=== PATIENT | male | born 1960 | race Caucasian/White ===

== ENCOUNTER 2020-11-13 08:09 | Emergency (ER) | payer OTHER, MEDICARE, SELFPAY ==
--- NOTE | ~2020-11-13 | XR_ITS ---
EXAMINATION: XR FOREARM, LEFT CLINICAL INFORMATION: Crush injury COMPARISON: None TECHNIQUE: AP and lateral views of the left forearm were obtained. FINDINGS: There is no visible acute fracture, dislocation or subluxation seen. There are enthesophytes along the proximal radius and olecranon process at the elbow joint. Otherwise no gross bony abnormality. The soft tissues are normal. XR/XR forearm LT 2V IMPRESSION: No acute fracture, dislocation or soft tissue abnormality seen.
[2020-11-13 08:26] VITALS: BP 141/87; PULSE 100; RESP 16; TEMP 36.2; O2SAT 95; BMI 21.4
--- NOTE | 2020-11-13 11:17 | ED_ITS ---
HPI - Extremity Problem General Chief complaint: Extremity Injury, Upper Stated complaint: crush injury left forearm Time Seen by Provider: 11/13/20 09:37 Source: patient Mode of arrival: ambulatory History of Present Illness HPI Narrative: 60-year-old male with no significant past medical history presenting to the ED complaining of crush injury/laceration to left forearm s/p working on a vehicle yesterday. Admits arm got caught between tire and metal part of a vehicle around 4:00 p.m. yesterday. Admits tetanus is up-to-date. Denies numbness, tingling, weakness, injury to other area MD Complaint: joint swelling and joint paint Related Data Previous Rx's Medication Instructions Recorded cephalexin 500 mg PO QID 7 Days #28 cap 11/13/20 Allergies Allergy/AdvReac Type Severity Reaction Status Date / Time No Known Allergies Allergy Verified 11/13/20 08:10 Review of Systems Review of Systems: Constitutional: No Fever, No Chills Musculoskeletal: + joint pain, No Myalgias, No Joint Swelling Skin: +laceration Neuro: No Weakness, No Numbness, No Paresthesias Yes all other systems are reviewed and are negative Neurologic: Denies Sensory deficit (Neuro) [facility] Past Medical History Attestation statement: The following information was validated with the patient. Medical History (Updated 11/13/20 @ 11:20 by EDIE Shaikh) No known health problems Social History Social History Advance Directives: No Advance Directives Information Provided: Yes Physical Exam Vital Signs: Vital Signs: Last Vital Signs Temp 97.2 F 11/13/20 08:26 Pulse 100 11/13/20 08:26 Resp 16 11/13/20 08:26 BP 141/87 H 11/13/20 08:26 Pulse Ox 95 11/13/20 08:26 Body Mass Index 21.4 Const: General: cooperative, healthy appearing and no acute distress Orientation/consciousness: patient oriented x3 Limitations: no limitations HENMT: Head: Yes normal to inspection Ears: hearing grossly normal bilaterally General nose exam: Normal external nose present Face and sinus: Yes normal facial exam Eyes: General: appearance normal, both eyes and all related structures EOM: EOMs intact bilaterally Neck: Neck: Yes normal visual inspection Resp: Effort & Inspection: normal respiratory effort Cardio: Rate: regular rate GI: Inspection: Yes normal to inspection Skin: Other: +deep flap laceration noted to let forearm with irregular margins Rashes: no rashes Neuro: General: patient oriented x3 Gait exam (Neuro): Normal gait present Sensory Exam: No Sensory deficit (Neuro) Extrem: Other: FROM intact to L wrist/hand/digits. forearm supination/ pronation intact General: Yes normal to inspection Course Course Course Narrative: XR forearm LT 2V IMPRESSION: No acute fracture, dislocation or soft tissue abnormality seen. Procedures Laceration Laceration 1: Site: upper extremity Side (If applicable): left Size (cm): 6 Description: flap Depth: simple, single layer Local Anesthetic: lidocaine 1% and with epi Amount of anesthesia used (mL): 8 Pre-repair: wound explored, irrigated extensively, deep structures intact and wound margins revised Skin layer closed with: nylon Size (cm): 4-0 Number of sutures: 7 Technique: simple, interrupted MDM - Extremity (Nontraumatic) MDM Narrative Medical decision making narrative: 60-year-old male with no significant past medical history presenting to the ED complaining of crush injury/laceration to left forearm s/p working on a vehicle yesterday. on exam VSS, NAD, physical exam as above. rule out fracture/crush injury. No evidence of foreign body. Full range of motion/sensation /NV intact distally to wound. Tetanus up-to-date Plan: X-rays, repair wound Discharge Plan Discharge Clinical Impression: Laceration, Crush injury Patient Disposition: Home, Self-Care Instructions: Laceration (ED) Additional Instructions: your x-rays were unremarkable You need to return to any emergency department or urgent care in 7-10 days to have her stitches taken out Keflex as an antibiotic, take as prescribed Keep area dry and clean, do not get wet for 24 hours After 24 hours you may get wet however only pat dry, do not scrub You may apply bacitracin or Neosporin Very begins look infected, is red, there is drainage, ear fever please return to the ED immediately Prescriptions: New cephalexin 500 mg capsule 500 mg PO QID 7 Days Qty: 28 RF: 0 Referrals: Harshal Hines MD [Emergency Provider] - 1 week ( return to any emergency department or urgent care in 7-10 days to have your stitches taken out)
== END 2020-11-13 11:29 | disposition home or self-care (01) ==
PROVIDERS: Emergency Provider Emergency Medicine Emergency Medical Services; PCP Internal Medicine
DX: S57.82XA Crushing injury of left forearm, initial encounter (principal); S51.812A Laceration without foreign body of left forearm, initial encounter; W23.0XXA Caught, crushed, jammed, or pinched between moving objects, initial encounter; Y93.9 Activity, unspecified; Y92.9 Unspecified place or not applicable; Y99.9 Unspecified external cause status
CPT/HCPCS: 12002; 73090; 99283; 99284

== ENCOUNTER 2021-02-22 16:16 | Emergency (ER) | payer OTHER, MEDICARE, SELFPAY ==
[2021-02-22 16:31] VITALS: BP 131/108; PULSE 99; RESP 20; TEMP 36.6; O2SAT 95; BMI 24.1
[2021-02-22 16:52] LABS: Appearance Urine CLEAR; Color Urine YELLOW; Glucose Urine UA NEG (NEG); Leukocyte Esterase Urine NEG (NEG); Nitrite Urine NEG (NEG); Specific Gravity - Urine <= 1.005 (1.005-1.025); Urine Blood NEG (NEG); Urine Ketones NEG (NEG); Urine Protein NEG (NEG-TRACE)
[2021-02-22 17:05] LABS: Amphetamine Screen Urine Not Detected (Not Detect); Barbiturates, Urine Not Detected (Not Detect); Benzodiazepines Screen Urine Not Detected (Not Detect); Cannabinoid Screen Urine Not Detected (Not Detect); Cocaine Screen Urine Not Detected (Not Detect); Fentanyl, urine Not Detected (Not Detect); Opiate Screen Urine Not Detected (Not Detect); Phencyclidine Screen Urine Not Detected (Not Detect)
--- NOTE | 2021-02-22 19:23 | MHC.RECOVSUP ---
? Reason for consult:Support Services o?? Current location ?Waiting Room o?? Identified substance use concern ?Alcohol ? Seeking ATS (detox) ?? Support ? Intervention: o?? Community resources provided o?? Harm reduction discussion ? Plan o?? Follow up tomor o?? Patient to follow up with [facility] after discharge ? Additional information: ?Spoke with Pt. in the waiting room. Explained that I could see once he is medically clear from the doctor. Also informed the Care Team about his situation.
--- NOTE | 2021-02-22 21:23 | ED.ALCOHOL ---
HPI - Alcohol General Chief Complaint: ETOH/Substance Use Stated Complaint: Detox? Time Seen by Provider: 02/22/21 21:22 Source: patient Mode of arrival: ambulatory Limitations: no limitations History of Present Illness HPI narrative: asking for meds to hold him over until detox complaint: alcohol dependence Last drink: Hours (ago) Chronic alcohol use: Yes Previous visits for alcohol intoxication: No Recent trauma: No Associated symptoms: denies other symptoms Treatments prior to arrival: none Related Data Previous Rx's Medication Instructions Recorded cephalexin 500 mg capsule 500 mg PO QID 7 Days #28 cap 11/13/20 chlordiazepoxide HCl 25 mg capsule See Rx Instructions .ROUTE 02/22/21 .COMPLEX PRN #15 cap Allergies Allergy/AdvReac Type Severity Reaction Status Date / Time No Known Allergies Allergy Verified 11/13/20 08:10 Review of Systems Review of Systems: Constitutional : No Fever, No Chills ENT/Mouth : No sore throat, No Rhinorrhea Eyes: No Eye Pain, No Swelling, No Redness Cardiovascular : No Chest Pain, No SOB, Respiratory : No Cough, No Sputum, No Wheezing Gastrointestinal : No Nausea, No Vomiting Genitourinary : No Dysuria, No Urinary Frequency, No Hematuria, Musculoskeletal : No joint pain, No Myalgias, No Joint Swelling Skin : No Skin Lesions, No rash Neuro : No Weakness, No Numbness, No Dizziness, No Headache Psych : No Anxiety/Panic, No Depression PMFSH Past Medical History Attestation statement: The following information was validated with the patient. Medical History No known health problems Social History Social History (Updated 02/22/21 @ 21:36 by Mame Whaley DO) Alcohol intake: current Patient Tobacco Use Status: Current everyday Tobacco user Advance Directives: No Advance Directives Information Provided: Yes Physical Exam Vital Signs: Vital Signs: Last Vital Signs Temp 98 F 02/22/21 16:31 Pulse 99 02/22/21 16:31 Resp 20 02/22/21 16:31 BP 131/108 H 02/22/21 16:31 Pulse Ox 95 02/22/21 16:31 Body Mass Index 24.1 Appearance: Alert. Oriented X3. No acute distress. Eyes: Pupils equal, round and reactive to light. ENT: Pharynx normal. atraumatic Neck: Normal inspection. Neck supple. CVS: Normal heart rate and rhythm. Pulses normal. Respiratory: No respiratory distress. Breath sounds normal. Abdomen: Soft and nontender. Skin: Skin warm and dry. Normal skin color. Normal skin turgor. Extremities: No lower extremity edema. No calf ttp Neuro: Oriented X 3. No motor deficit. No sensory deficit. no tremor MDM - Alcohol MDM Narrative Medical decision making narrative: 60 yo male no medical complaints no SI just wants meds to hold him over until detox on Thursday - will give librium and instructed him to follow up, recovery coaches not available in the ED at this time Lab Data Labs: Lab Results 02/22/21 02/22/21 Range/Units 16:45 16:45 Urine Color YELLOW Urine Appearance CLEAR Urine pH 6.0 (5.0-8.0) Ur Specific [place] <= 1.005 (1.005-1.025) Urine Protein NEG (NEG-TRACE) MG/DL Urine Glucose (UA) NEG (NEG) MG/DL Urine Ketones NEG (NEG) MG/DL Urine Blood NEG (NEG) Urine Nitrite NEG (NEG) Ur Leukocyte Esterase NEG (NEG) Urine Opiates Screen Not Detected (Not Detect) Urine Fentanyl Screen Not Detected (Not Detect) Ur Barbiturates Screen Not Detected (Not Detect) Ur Phencyclidine Scrn Not Detected (Not Detect) Ur Amphetamines Screen Not Detected (Not Detect) U Benzodiazepines Scrn Not Detected (Not Detect) Urine Cocaine Screen Not Detected (Not Detect) U Marijuana (THC) Screen Not Detected (Not Detect) Discharge Plan Discharge Clinical Impression: Alcohol abuse Patient Disposition: Home, Self-Care Instructions: Abuse of Alcohol (ED) Additional Instructions: return to ED for any worsening symptoms or concerns Prescriptions: New chlordiazepoxide HCl 25 mg capsule See Rx Instructions .ROUTE .COMPLEX PRN (Reason: alcohol withdrawal) Qty: 15 RF: 0 No Action cephalexin 500 mg capsule 500 mg PO QID 7 Days Qty: 28 RF: 0
[2021-02-22] MEDS: chlordiazePOXIDE HCl 25 MG CAPSULE PO (21:55)
[2021-02-22 21:56] VITALS: BP 172/111; PULSE 88; RESP 16; TEMP 36.4; O2SAT 94
--- NOTE | 2021-02-22 22:00 | PC.NURSE ---
BP 172/111 MD notified per provider pt ok to be d/c with these vital signs
== END 2021-02-22 22:13 | disposition home or self-care (01) ==
PROVIDERS: Emergency Provider Emergency Medicine; PCP Internal Medicine
DX: F10.10 Alcohol abuse, uncomplicated (principal)
CPT/HCPCS: 80307; 81003; 99284

== ENCOUNTER 2022-04-21 09:19 | Outpatient (REF) | payer MEDICARE, SELFPAY ==
[2022-04-21 09:32] LABS: MANUAL DIFF FLAG NO
[2022-04-21 09:54] LABS: Basophils Percent Auto 0.3 % (0-2); Eosinophils Absolute Auto 0.1 X10*3/uL (0.0-0.4); Eosinophils Percent Auto 1.6 % (0-4); Hematocrit 44.7 % (42.0-52.0); Hemoglobin 15.2 g/dl (14.0-18.0); Imm Gran Abs Auto 0.03 X10*3/uL (0.00-0.03); Imm Gran Pct Auto 0.4 % (0.0-0.4); Lymphocytes Absolute Auto 3.2 X10*3/uL (1.2-4.9); Lymphocytes Percent Auto 42.6 % (20-40); Mean Corpuscular Hemoglobin 29.7 pg (27.0-33.0); Mean Corpuscular Volume 87.3 fL (80.0-98.0); Monocytes Absolute Auto 0.6 X10*3/uL (0.1-1.2); Monocytes Percent Auto 7.3 % (2-11); Neutrophils Absolute Auto 3.6 x10*3/uL (2.0-8.3); Neutrophils Percent Auto 47.8 % (45-73); Platelet Count 320 X10*3/uL (160-400); Red Blood Count 5.12 X10*6/uL (4.60-5.80); Red Cell Distribution Width 13.1 % (11.0-16.0); White Blood Count 7.6 X10*3/uL (4.8-10.8)
[2022-04-21 11:36] LABS: Alanine Aminotransferase 23 U/L (0-40); Albumin Level 4.2 g/dL (3.5-5.0); Alkaline Phosphatase 90 U/L (39-117); Anion Gap 10 (12-20); Aspartate Amino Transferase 28 U/L (5-37); Bilirubin Total 0.6 mg/dL (0.0-1.0); Blood Urea Nitrogen 11 mg/dL (9-16); Carbon Dioxide 29 mmol/L (22-29); Chloride 103 mmol/L (96-108); Cholesterol 187 mg/dL; Estimated Glomerular Filt Rate > 60; Ferritin 382 ng/mL (20-250); Glucose Random 125 mg/dL (60-115); HDL Cholesterol 36 mg/dL; LDL Cholesterol Calculated 138 mg/dl; Potassium 4.4 mmol/L (3.3-5.1); Prostate Specific Antigen 0.32 ng/mL (<0.05-4.0); Sodium 138 mmol/L (135-145); Total Protein 7.6 g/dL (6.5-8.0); Triglycerides 68 mg/dL
== END 2022-04-21 09:20 | disposition home or self-care (01) ==
LOC: HO.LAB 09:19
PROVIDERS: PCP Internal Medicine; Visit Provider Internal Medicine
DX: Z00.00 Encounter for general adult medical examination without abnormal findings (principal); Z12.5 Encounter for screening for malignant neoplasm of prostate; E83.110 Hereditary hemochromatosis; G62.1 Alcoholic polyneuropathy; Z72.0 Tobacco use; Z86.010 Personal history of colon polyps
CPT/HCPCS: 36415; 80053; 80061; 82728; 84153; 85025

== ENCOUNTER 2022-10-17 06:19 | Outpatient (REF) | payer MEDICARE, SELFPAY ==
[2022-10-17 12:12] LABS: Estimated Average Glucose 103 mg/dL; Hemoglobin A1c % 5.2 %
[2022-10-17 12:55] LABS: Alanine Aminotransferase 29 U/L (0-40); Albumin Level 4.1 g/dL (3.5-5.0); Alkaline Phosphatase 92 U/L (39-117); Anion Gap 12 (12-20); Aspartate Amino Transferase 42 U/L (5-37); Bilirubin Total 0.7 mg/dL (0.0-1.0); Blood Urea Nitrogen 14 mg/dL (9-16); Calcium 9.1 mg/dL (8.4-10.2); Carbon Dioxide 25 mmol/L (22-29); Chloride 103 mmol/L (96-108); Estimated Glomerular Filt Rate > 60; Glucose Random 123 mg/dL (60-115); Potassium 4.2 mmol/L (3.3-5.1); Sodium 136 mmol/L (135-145); Thyroid Stimulating Hormone 3.19 uIU/mL (0.32-4.0); Total Protein 7.6 g/dL (6.5-8.0)
== END 2022-10-17 06:20 | disposition home or self-care (01) ==
LOC: HO.HMGCLDS 06:19
PROVIDERS: PCP Internal Medicine; Visit Provider Internal Medicine
DX: J44.9 Chronic obstructive pulmonary disease, unspecified (principal); F10.11 Alcohol abuse, in remission; R63.4 Abnormal weight loss; R74.01 Elevation of levels of liver transaminase levels; Z72.0 Tobacco use; R73.01 Impaired fasting glucose
CPT/HCPCS: 36415; 80053; 81256; 83036; 84443

== ENCOUNTER 2022-11-14 13:17 | Outpatient (REF) | payer MEDICARE, SELFPAY ==
--- NOTE | ~2022-11-14 | CT_ITS ---
EXAMINATION: LUNG CANCER SCREENING CT CHEST WITHOUT CONTRAST CLINICAL INFORMATION: Current smoker with 52 pack year history. COMPARISON: None TECHNIQUE: Multidetector volumetric CT imaging of the chest was obtained noncontrast using low dose screening CT technique. Axial thin section 0.625 mm reformations in soft tissue and lung windows were obtained. Sagittal and coronal reformations were obtained. Axial MIP images were also created and reviewed. This CT examination was performed using dose optimization techniques as appropriate, variously including the following: *Automated exposure control *Adjustment of mA and/or kV according to patient size (this includes techniques or standardized protocols for targeted exams where dose is matched to indication/reason for exam; i.e. extremities or head) *Use of iterative reconstruction technique TOTAL EXAM DLP: 49 mGy-cm FINDINGS: PULMONARY NODULES (see roque images): No suspicious pulmonary nodules. Punctate nodule, left lower lobe. LUNGS / PLEURA: No significant emphysema. Diffuse moderate bronchial wall thickening without bronchiectasis. Trace secretions in the distal right mainstem bronchus. No pleural effusion or pneumothorax. MEDIASTINUM / BETTY: Heart normal in size without pericardial effusion. Great vessels normal caliber. No lymphadenopathy. Coronary calcifications present. Imaged thyroid gland unremarkable. CHEST WALL / AXILLA: Unremarkable. UPPER ABDOMEN: Smooth low-density thickening of the left adrenal gland relates to hyperplasia. No follow-up imaging recommended. OSSEOUS STRUCTURES: No acute or suspicious osseous abnormalities. CT/CT lung screening IMPRESSION: * No evidence of pulmonary malignancy. * Diffuse moderate bronchial wall thickening likely relates to chronic bronchitis in this active smoker. ASSESSMENT: Lung RADS category: 2. Benign appearance or behavior. Nodules with a very low likelihood of becoming a clinically active cancer due to size or lack of growth. Continue annual screening with low-dose CT in 12 months. Probability of malignancy less than 1%. RECOMMENDATION: Follow up low dose CT chest in 1 year.
== END 2022-11-14 13:18 | disposition home or self-care (01) ==
LOC: HO.CT 13:17
PROVIDERS: PCP Internal Medicine; Visit Provider Physician Assistant Medical
DX: Z12.2 Encounter for screening for malignant neoplasm of respiratory organs (principal); F17.210 Nicotine dependence, cigarettes, uncomplicated
CPT/HCPCS: 71271; G0296

== ENCOUNTER → 2022-12-31 08:46 | Outpatient (REF) | payer MEDICARE, SELFPAY ==
--- NOTE | 2022-12-31 08:51 | CA_ITS ---
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 The visually estimated ejection fraction is between 60-65%. Spectral Doppler is indicative of a normal filling pattern. Right Ventricle Normal right ventricular cavity size and systolic function. Atria Both atria are normal in size. There is no evidence of interatrial shunt. Aortic Valve The aortic valve structure and function is likely normal. There is no aortic valve stenosis. There is no aortic valve regurgitation. Mitral Valve Normal mitral valve structure and function. There is trace mitral valve regurgitation. There is no mitral valve stenosis. Pulmonic Valve The pulmonic valve is likely normal. Tricuspid Valve Normal tricuspid valve structure. There is trace tricuspid valve regurgitation. The right ventricular systolic pressure is normal. The right ventricular systolic pressure is 18 mmHg. Normal right atrial pressure. There is no evidence of pulmonary hypertension. Great Vessels All visible segments of the aorta are normal in size. The pulmonary artery was not well visualized. There is no dilatation of the ascending aorta measuring 3.20 cm. Venous The inferior vena cava is normal in size and collapses greater than 50% with inspiration. Pericardium/Pleural There is no evidence of pericardial effusion. Prior Study Comparison No prior study available for comparison. Measurements 2D Linear Measurements IVSd: 1.17 0.6-0.9/0.6-1.0 cm LVIDd: 3.30 3.9-5.3/4.2-5.9 cm LVIDd Index: 1.85 2.4-3.2/2.2-3.1 cm/m2 LVIDs: 2.24 2.0-3.6 cm LVPWd: 0.96 0.7-1.1 cm Ao Root: 3.50 2.1-3.5 cm LA Diam: 2.70 2.7-3.8/3.0-4.0 cm LAIDs Index: 1.52 1.5-2.3 cm/m2 LV Mass: 128.86 67-162/88-224 g LV Mass Index: 72.39 43-95/49-115 g/m2 LVOT Diam: 2.20 3.0+(-)1.3 cm Mitral Valve MV Pk E: 0.51 MV PK A: 0.62 MV Decel Time: 244.00 E/A: 0.80 E'Lateral: 9.25 E'Medial: 6.96 E/E' Med: 7.30 E/E' Lat: 5.50 PHT: 71.00 MVA PHT: 3.10 Decel [place]: 2.08 Aortic Valve AoV Pk Deonte: 1.24 AoV Mn Deonte: 0.81 AoV VTI: 0.32 AoV Pk Grad: 6.00 Aov Mn Grad: 3.00 ALYSSA Cont.VTI: 3.20 LVOT LVOT Pk Deonte: 1.09 LVOT Mn Deonte: 0.66 LVOT VTI: 0.27 LVOT Pk Grad: 5.00 LVOT Mn Grad: 2.00 LVOT Diam: 2.20 LVOT Area: 3.80 Diastolic Function MV Pk E: 0.51 MV Pk A: 0.62 E/A: 0.80 E'Medial: 6.96 E/E' Med: 7.30 E' Laterial: 9.25 E/E' Lat: 5.50 Right Ventricle TAPSE (mm): 32.00 Tricuspid Valve TR Pk [place]onte: 1.95 TR Pk Grad: 15.00 RA Press: 3.00 RVSP: 18.00 Great Vessels Aorta Ao Root-2D: 3.50 2.0-3.7 cm Ao Asc: 3.20 2.1-3.4 cm Pulmonary Valve PV Pk Deonte: 0.92 Peak PV Grad: 3.00 Updated in Other Vendor System with Status of Final Hans Early MD electronically signed on 01/01/2023 11:59:15 AM with status of Final
== END ==
LOC: HO.CARD 08:46
PROVIDERS: PCP Internal Medicine; Visit Provider Internal Medicine
DX: E83.110 Hereditary hemochromatosis (principal)
CPT/HCPCS: 93306

== ENCOUNTER → 2022-12-31 08:51 | Outpatient (BNV) | payer MEDICARE, SELFPAY | PROVIDERS: PCP Internal Medicine; Visit Provider Internal Medicine Cardiovascular Disease | DX: E83.110 Hereditary hemochromatosis (principal) | CPT/HCPCS: 93306 ==

== ENCOUNTER 2023-01-15 09:24 | Emergency (ER) | payer MEDICARE, SELFPAY ==
--- NOTE | ~2023-01-15 | CT_ITS ---
EXAMINATION: CT HEAD WITHOUT CONTRAST CLINICAL INFORMATION: Syncope, possible head injury. COMPARISON: Head CT scan dated 12/31/2017. TECHNIQUE: Contiguous axial imaging was performed from the skull base to vertex without intravenous administration of contrast. Coronal and sagittal reformatted images were obtained. This CT examination was performed using dose optimization techniques as appropriate, variously including the following: *Automated exposure control *Adjustment of mA and/or kV according to patient size (this includes techniques or standardized protocols for targeted exams where dose is matched to indication/reason for exam; i.e. extremities or head) *Use of iterative reconstruction technique DLP: 611 mGy-cm FINDINGS: There is mild widening of the cortical sulci and associated ventriculomegaly. The lateral ventricles are symmetrical. The third and fourth ventricles are in their normal midline position. The basilar and prepontine cisterns are unremarkable. There is no acute intra or extracerebral abnormality. There is no mass effect or midline shift. Sections through the bony calvarium are unremarkable. The orbits are intact. The paranasal sinuses show mild mucosal thickening in the ethmoid sinuses bilaterally. The mastoid air cells are clear. Hypoaeration of the left mastoid process is noted. CT/CT head/brain wo IV con IMPRESSION: No acute intracranial pathology.
[2023-01-15 09:30] VITALS: BP 156/96; PULSE 73; RESP 16; TEMP 37; O2SAT 92
[2023-01-15 09:34] VITALS: BP 146/96; O2SAT 96; BMI 21.9
[2023-01-15 09:38] VITALS: O2SAT 99
--- NOTE | 2023-01-15 09:45 | PC.NURSE ---
pt a&ox3, vss, nsr on the court recording monitor. pt biba d/t syncopal episode after walking dog. pt states that he had LOC after changing positions and then his vision became blurry. pt denies hx of syncopal episodes aside from seizure he had when he was 12 years old. pt states that he cracked his skull open on the playground at school and had a seizure post head strike. pt denies any other occurrences throughout life. pt verbalizing SOB abhinav but is maintaining patent airway, able to speak in full, clear sentences. no WOB noted. c-collar in place. 20gIV placed by EMS. call [place] placed within reach.
--- NOTE | 2023-01-15 09:56 | ED.SYNCOPE ---
HPI - Syncope General Chief Complaint: Syncope Stated Complaint: SYNCOPAL EPISODE +CCOLLAR PER EMS Time Seen by Provider: 01/15/23 09:45 Source: patient and EMS Mode of arrival: EMS Limitations: no limitations History of Present Illness HPI narrative: 8-year-old male with history of alcohol abuse presents with a syncopal event. Patient when out to walk the dog or take out the trash when he got back into the house he had a syncopal event. Had no prodrome such as chest pain, palpitations or lightheadedness. 1 minute he was walking the next minute he knew was on the ground. He is unclear whether he did hit his head. His symptoms are described as severe. He does not have a history of syncope. Denies any history of sudden cardiac in his family. He has no active chest pain, palpitations. Patient does have a history of anxiety and he does feel somewhat anxious. Patient drinks about a pt of vodka daily. His last drink was yesterday morning. He denies feeling withdrawal symptoms at this time. Patient denies any drug abuse. Related Data Previous Rx's Medication Instructions Recorded cephalexin 500 mg capsule 500 mg PO QID 7 days #28 caps 11/13/20 chlordiazepoxide HCl 25 mg capsule See Rx Instructions .Route 02/22/21 .COMPLEX PRN alcohol withdrawal #15 caps Allergies Allergy/AdvReac Type Severity Reaction Status Date / Time No Known Allergies Allergy Verified 01/15/23 09:33 Review of Systems Review of Systems: CONSTITUTIONAL: Denies weight loss, fever and chills. HEENT: Denies changes in vision and hearing. RESPIRATORY: Denies SOB and cough. CV: Denies palpitations no CP. GI: Denies abdominal pain, nausea, vomiting and diarrhea. : Denies dysuria and urinary frequency. MSK: Denies myalgia and joint pain. SKIN: Denies rash and pruritus. NEUROLOGICAL: Denies headache + syncope. PSYCHIATRIC: Denies recent changes in mood. Denies anxiety and depression. All other ROS are negative unless in HPI PMFSH Past Medical History Medical History Nicotine dependence, cigarettes, uncomplicated Surgical History History of cervical spinal surgery History of left knee surgery History of lumbar surgery History of vasectomy Social History Social History Alcohol intake: current Alcohol intake frequency: 3 or more drinks per day Alcohol type: hard liquor Patient Tobacco Use Status: Current everyday Tobacco user Tobacco use type: Cigarette Years Smoked: (current smoker - onset 20yo, 1/2ppd x 42yrs, 20pyh) Smoked in Last 30 Days: Yes Use of substances other than those prescribed or required for medical reasons: No Advance Directives: No Physical Exam Vital Signs: Vital Signs: Last Vital Signs Temp 98.6 F 01/15/23 09:30 Pulse 89 01/15/23 11:08 Resp 16 01/15/23 11:08 BP 142/80 H 01/15/23 11:08 Pulse Ox 93 01/15/23 11:08 O2 Del Method Room Air 01/15/23 11:08 BMI result Body Mass Index 21.9 GEN: Well developed, no acute distress, alert, oriented HEENT: Normocephalic, atraumatic, normal external ears, nose appears normal, no oropharyngeal edema or exudates Eyes: Normal to appearance Neck: Supple, no lymphadenopathy Respiratory: Talks in complete sentences, no respiratory distress, clear to auscultation bilaterally Cardiovascular: Regular rate and rhythm, no murmurs rubs or gallops Abdomen: Soft, nontender, nondistended, no guarding, no rebound Back: No CVA tenderness Extremities: No clubbing cyanosis or edema Neurologic: No focal neurologic deficits, cranial nerves 2-12 intact, strength is 5/5 bilaterally Skin: No rash Psych: Anxious and tremulous appearing Course Course Course Narrative: the workup is complete. Been monitored for quite some time. On telemetry, he had some runs of PVCs numbering 3 or 4 neuro but mostly sinus rhythm. EKG is not ischemic. Cardiac enzymes x2 are negative. CT [place] syncope score does not shown indication for admission. This could be done as an outpatient. Will refer to Cardiology. Reevaluation(s) Reevaluation #1: [place] Syncope Risk Score from [employer] on 01/15/2023 All calculations should be rechecked by clinician prior to use RESULT SUMMARY: -2 points [place] Syncope Risk Score Very low risk 0.7% risk of 30-day serious adverse event (, arrhythmia, PR ? full list in Evidence) INPUTS: Predisposition to vasovagal symptoms ?> 0 = No Heart disease history ?> 0 = No sBP 180 mmHg ?> 0 = No Elevated troponin ?> 0 = No Abnormal QRS axis ?> 0 = No QRS duration >130 ms ?> 0 = No Corrected QT interval >480 ms ?> 0 = No ED diagnosis ?> -2 = Vasovagal syncope Time: 13:03 Medications Administered Discontinued Medications Generic Name Dose Route Start Last Admin Trade Name Alvaro PRN Reason Stop Dose Admin Albuterol Sulfate 2.5 mg 01/15/23 09:57 01/15/23 10:13 Albuterol Sulfate (0.083%) 2.5 Mg/3 Ml Vial.Neb INHALE 01/15/23 09:58 2.5 mg ONCE ONE Administration Lorazepam 2 mg 01/15/23 09:57 01/15/23 10:13 Lorazepam 1 Mg Tablet PO 01/15/23 09:58 2 mg ONCE ONE Administration Nicotine 21 mg 01/15/23 09:57 01/15/23 10:14 Nicotine 21 Mg Patch.Td24 TRANSDERMA 01/15/23 09:58 21 mg ONCE ONE Administration Medical Decision Making Medical Decision Making MDM Narrative: 62-year-old male presents with syncope. Examination was benign. EKG will be performed to rule out cardiac dysrhythmia. Other differential diagnosis includes anemia, electrolyte abnormality, intoxication, withdrawal, drug abuse, PR, vasovagal, orthostatic. Will check routine laboratory analysis, vital signs, re-evaluate. Will treat symptomatically for possible draws patient appears tremulous. He will get Ativan 2 mg p.o.. Will provide with nicotine replacement. Differential Diagnosis Differential Diagnoses: The differential diagnosis associated with the presentation includes ( See above) Admission/Observation Consideration of admission/observation: Escalation of care including admission/observation considered Lab Data [facility] Lab Attestation statement: I reviewed the patient's lab results. 01/15/23 10:25 01/15/23 10:25 Labs: Lab Results 01/15/23 01/15/23 01/15/23 Range/Units 10:25 10:25 10:25 WBC 6.6 (4.8-10.8) X10*3/uL RBC 4.64 (4.60-5.80) X10*6/uL Hgb 15.2 (14.0-18.0) g/dl Hct 43.3 (42.0-52.0) % MCV 93.3 (80.0-98.0) fL MCH 32.8 (27.0-33.0) pg MCHC 35.1 (31.0-36.0) g/dl RDW 12.7 (11.0-16.0) % Plt Count 212 D (160-400) X10*3/uL MPV 9.0 L (9.4-12.4) fL Immature Gran % (Auto) 0.3 (0.0-0.4) % Neut % (Auto) 73.5 H (45-73) % Lymph % (Auto) 16.3 L (20-40) % Randall % (Auto) 8.8 (2-11) % Eos % (Auto) 0.6 (0-4) % Baso % (Auto) 0.5 (0-2) % Lymph # (Auto) 1.1 L (1.2-4.9) X10*3/uL Randall # (Auto) 0.6 (0.1-1.2) X10*3/uL Eos # (Auto) 0.0 (0.0-0.4) X10*3/uL Baso # (Auto) 0.0 (0.0-0.2) X10*3/uL Abs Immat Gran (auto) 0.02 (0.00-0.03) X10*3/uL Absolute Neuts (auto) 4.8 (2.0-8.3) x10*3/uL Absolute Nucleated RBC 0.000 (0.0-0.012) X10*3/uL Nucleated RBC % (auto) 0.0 (0.0-0.2) /100WBC Sodium 139 (135-145) mmol/L Potassium 4.2 (3.3-5.1) mmol/L Chloride 101 (96-108) mmol/L Carbon Dioxide 29 (22-29) mmol/L Anion Gap 13 (12-20) BUN 11 (9-16) mg/dL Creatinine 0.74 (0.5-1.4) mg/dL Estim Creat Clear Calc 97.8 Estimated GFR > 60 Random Glucose 101 (60-115) mg/dL Calcium 9.3 (8.4-10.2) mg/dL Total Bilirubin 0.8 (0.0-1.0) mg/dL AST 140 H (5-37) U/L ALT 74 H (0-40) U/L Alkaline Phosphatase 91 (39-117) U/L Troponin I High Sens < 2.7 (<3.5-35.0) ng/L Total Protein 7.6 (6.5-8.0) g/dL Albumin 4.0 (3.5-5.0) g/dL Urine Color Urine Appearance Urine pH (5.0-9.0) Ur Specific [place] (1.005-1.025) Urine Protein (Neg-Trace) mg/dL Urine Glucose (UA) (Negative) mg/dL Urine Ketones (Negative) mg/dL Urine Blood (Negative) Urine Nitrite (Negative) Ur Leukocyte Esterase (Negative) Urine RBC (0-2) /HPF Urine WBC (0-5) /HPF Ur Squamous Epith Cells (0-2) /HPF Urine Bacteria (None Seen) Hyaline Casts (0-2) /LPF Urine Opiates Screen (Not Detect) Urine Fentanyl Screen (Not Detect) Ur Barbiturates Screen (Not Detect) Ur Phencyclidine Scrn (Not Detect) Ur Amphetamines Screen (Not Detect) U Benzodiazepines Scrn (Not Detect) Urine Cocaine Screen (Not Detect) U Marijuana (THC) Screen (Not Detect) Ethyl Alcohol 11 mg/dL 01/15/23 01/15/23 01/15/23 Range/Units 10:47 10:47 11:47 WBC (4.8-10.8) X10*3/uL RBC (4.60-5.80) X10*6/uL Hgb (14.0-18.0) g/dl Hct (42.0-52.0) % MCV (80.0-98.0) fL MCH (27.0-33.0) pg MCHC (31.0-36.0) g/dl RDW (11.0-16.0) % Plt Count (160-400) X10*3/uL MPV (9.4-12.4) fL Immature Gran % (Auto) (0.0-0.4) % Neut % (Auto) (45-73) % Lymph % (Auto) (20-40) % Randall % (Auto) (2-11) % Eos % (Auto) (0-4) % Baso % (Auto) (0-2) % Lymph # (Auto) (1.2-4.9) X10*3/uL Randall # (Auto) (0.1-1.2) X10*3/uL Eos # (Auto) (0.0-0.4) X10*3/uL Baso # (Auto) (0.0-0.2) X10*3/uL Abs Immat Gran (auto) (0.00-0.03) X10*3/uL Absolute Neuts (auto) (2.0-8.3) x10*3/uL Absolute Nucleated RBC (0.0-0.012) X10*3/uL Nucleated RBC % (auto) (0.0-0.2) /100WBC Sodium (135-145) mmol/L Potassium (3.3-5.1) mmol/L Chloride (96-108) mmol/L Carbon Dioxide (22-29) mmol/L Anion Gap (12-20) BUN (9-16) mg/dL Creatinine (0.5-1.4) mg/dL Estim Creat Clear Calc Estimated GFR Random Glucose (60-115) mg/dL Calcium (8.4-10.2) mg/dL Total Bilirubin (0.0-1.0) mg/dL AST (5-37) U/L ALT (0-40) U/L Alkaline Phosphatase (39-117) U/L Troponin I High Sens < 2.7 (<3.5-35.0) ng/L Total Protein (6.5-8.0) g/dL Albumin (3.5-5.0) g/dL Urine Color Yellow Urine Appearance Hazy Urine pH 6.0 (5.0-9.0) Ur Specific [place] 1.025 (1.005-1.025) Urine Protein Trace (Neg-Trace) mg/dL Urine Glucose (UA) Negative (Negative) mg/dL Urine Ketones Negative (Negative) mg/dL Urine Blood Trace (Negative) Urine Nitrite Negative (Negative) Ur Leukocyte Esterase Negative (Negative) Urine RBC 0-2 (0-2) /HPF Urine WBC 0-5 (0-5) /HPF Ur Squamous Epith Cells 0-2 (0-2) /HPF Urine Bacteria None Seen (None Seen) Hyaline Casts 0-2 (0-2) /LPF Urine Opiates Screen Not Detected (Not Detect) Urine Fentanyl Screen Not Detected (Not Detect) Ur Barbiturates Screen Not Detected (Not Detect) Ur Phencyclidine Scrn Not Detected (Not Detect) Ur Amphetamines Screen Not Detected (Not Detect) U Benzodiazepines Scrn Not Detected (Not Detect) Urine Cocaine Screen Not Detected (Not Detect) U Marijuana (THC) Screen Not Detected (Not Detect) Ethyl Alcohol mg/dL Independent Interpretation I performed an independent interpretation of an: EKG ( normal sinus rhythm heart rate 62, no acute ST elevations depressions, Q-wave noted in lead 3), Rhythm Strip (had a run of 3 pvcs but otherwise sinus ) and CT Scan (head NAD) Radiology Impression Discussion of test interpretation with radiology: I have reviewed the radiologist's reading. Radiologist Impression: CT/CT head/brain wo IV con IMPRESSION: No acute intracranial pathology. Dictated By: Adam Macias MD Signed By: <Electronically signed by Adam Macias MD in OV> 01/15/23 1245 Independent Historian Clinical information obtained from an independent historian. History obtained from or confirmed by: EMS Prescription Management I considered prescription management with: Pain Medication Chronic Conditions Patient?s care impacted by: Other ( anxiety, alcohol abuse) Discharge Plan Discharge Clinical Impression: Syncope, History of ETOH abuse, Nicotine dependence, cigarettes, uncomplicated Patient Disposition: Home, Self-Care Instructions: Abuse of Alcohol (ED), Syncope (ED) Prescriptions: No Action cephalexin 500 mg capsule 500 mg PO QID 7 Days Qty: 28 0RF chlordiazepoxide HCl 25 mg capsule See Rx Instructions .ROUTE .COMPLEX PRN (Reason: alcohol withdrawal) Qty: 15 0RF Rx Instructions: Dose: 25mg Day 1: 50 mg every 6 hours as needed for symptom control of alcohol withdrawal; days 2 to 5: 25 mg every 6 hours as needed for alcohol withdrawal Referrals: Sugey Ramos MD [Primary Care Provider] - Reji Chu MD [Physician] - 5 days
--- NOTE | 2023-01-15 09:57 | ECG_ITS ---
Test Reason : syncope Blood Pressure : / mmHG Vent. Rate : 062 BPM Atrial Rate : 062 BPM P-R Int : 162 ms QRS Dur : 086 ms QT Int : 404 ms P-R-T Axes : 074 -05 063 degrees QTc Int : 410 ms Normal sinus rhythm Cannot rule out Inferior infarct , age undetermined Abnormal ECG When compared with ECG of 04-APR-2017 18:58, No significant change was found Referred By: Tevin Mann Electronically Signed By:JOSÉ MCCRARY
[2023-01-15] MEDS: LORazepam 1 MG TABLET 2 MG PO (10:13)
[2023-01-15] MEDS: Albuterol Sulfate (0.083%) 2.5 MG/3 ML VIAL.NEB INHALE (10:13)
[2023-01-15] MEDS: Nicotine 21 MG PATCH.TD24 TRANSDERMA (10:14)
--- NOTE | 2023-01-15 10:16 | PC.NURSE ---
medication administered per provider order. RT called/RT bedside giving pt breathing treatment. lung sounds clear throughout prior to treatment. CT now bedside but states they will come back when pt completes breathing treatment. call angeles placed within reach.
[2023-01-15 10:28] LABS: MANUAL DIFF FLAG NO
[2023-01-15 10:29] LABS: Basophils Percent Auto 0.5 % (0-2); Eosinophils Percent Auto 0.6 % (0-4); Hematocrit 43.3 % (42.0-52.0); Hemoglobin 15.2 g/dl (14.0-18.0); Imm Gran Abs Auto 0.02 X10*3/uL (0.00-0.03); Imm Gran Pct Auto 0.3 % (0.0-0.4); Lymphocytes Absolute Auto 1.1 X10*3/uL (1.2-4.9); Lymphocytes Percent Auto 16.3 % (20-40); Mean Corpuscular HGB Conc 35.1 g/dl (31.0-36.0); Mean Corpuscular Hemoglobin 32.8 pg (27.0-33.0); Mean Corpuscular Volume 93.3 fL (80.0-98.0); Monocytes Absolute Auto 0.6 X10*3/uL (0.1-1.2); Monocytes Percent Auto 8.8 % (2-11); Neutrophils Absolute Auto 4.8 x10*3/uL (2.0-8.3); Neutrophils Percent Auto 73.5 % (45-73); Platelet Count 212 X10*3/uL (160-400); Red Blood Count 4.64 X10*6/uL (4.60-5.80); Red Cell Distribution Width 12.7 % (11.0-16.0); White Blood Count 6.6 X10*3/uL (4.8-10.8)
[2023-01-15 10:43] LABS: Alanine Aminotransferase 74 U/L (0-40); Alkaline Phosphatase 91 U/L (39-117); Anion Gap 13 (12-20); Aspartate Amino Transferase 140 U/L (5-37); Bilirubin Total 0.8 mg/dL (0.0-1.0); Blood Urea Nitrogen 11 mg/dL (9-16); Calcium 9.3 mg/dL (8.4-10.2); Carbon Dioxide 29 mmol/L (22-29); Chloride 101 mmol/L (96-108); Creatinine Clr Calc Pharmacy 97.8; Estimated Glomerular Filt Rate > 60; Ethanol 11 mg/dL; Glucose Random 101 mg/dL (60-115); Potassium 4.2 mmol/L (3.3-5.1); Sodium 139 mmol/L (135-145); Total Protein 7.6 g/dL (6.5-8.0)
[2023-01-15 10:48] LABS: Troponin-I High Sensitivity < 2.7 ng/L (<3.5-35.0)
[2023-01-15 11:00] LABS: Appearance Urine Hazy; Color Urine Yellow; Glucose Urine UA Negative (Negative); Leukocyte Esterase Urine Negative (Negative); Nitrite Urine Negative (Negative); Specific Gravity - Urine 1.025 (1.005-1.025); UMIC TRIGGER UACC YES; Urine Blood Trace (Negative); Urine Ketones Negative (Negative); Urine Protein Trace mg/dL (Neg-Trace)
[2023-01-15 11:08] VITALS: BP 142/80; PULSE 89; RESP 16; O2SAT 93
--- NOTE | 2023-01-15 11:09 | PC.NURSE ---
pt a&ox3, vss, nsr on the mapping specialist. pt verbalizing no pain abhinav. resting comfortably in no apparent distress. lung sounds clear throughout post breathing treatment. call angeles placed within reach.
[2023-01-15 11:11] LABS: Amphetamine Screen Urine Not Detected (Not Detect); Barbiturates, Urine Not Detected (Not Detect); Benzodiazepines Screen Urine Not Detected (Not Detect); Cannabinoid Screen Urine Not Detected (Not Detect); Cocaine Screen Urine Not Detected (Not Detect); Fentanyl, urine Not Detected (Not Detect); Opiate Screen Urine Not Detected (Not Detect); Phencyclidine Screen Urine Not Detected (Not Detect)
[2023-01-15 11:13] LABS: Bacteria Urine None Seen (None Seen); Hyaline Casts Urine 0-2 /LPF (0-2); RBC Urine 0-2 /HPF (0-2); Squamous Epithelial Cell Urine 0-2 /HPF (0-2); WBC Urine 0-5 /HPF (0-5)
[2023-01-15 12:18] LABS: Troponin-I High Sensitivity < 2.7 ng/L (<3.5-35.0)
[2023-01-15 13:09] VITALS: BP 159/97; PULSE 89; RESP 16; O2SAT 93
--- NOTE | 2023-01-15 13:10 | PC.NURSE ---
pt a&ox3, vss, nsr on the compliance monitor. pt verbalizing that generalized weakness has improved since he was biba. pt also states that he no longer feels SOB. lung sounds clear throughout. pt able to speak in full, clear sentences w/o difficulty. resting comfortably while watching tv. call angeles placed within reach.
== END 2023-01-15 13:25 | disposition home or self-care (01) ==
PROVIDERS: Emergency Provider Emergency Medicine; PCP Internal Medicine
DX: R55 Syncope and collapse (principal); F10.10 Alcohol abuse, uncomplicated; Y90.0 Blood alcohol level of less than 20 mg/100 ml; F17.210 Nicotine dependence, cigarettes, uncomplicated; F41.9 Anxiety disorder, unspecified; Z79.899 Other long term (current) drug therapy
CPT/HCPCS: 36415; 70450; 80053; 80307; 81001; 84484; 85025; 93005; 99284; 99285

== ENCOUNTER 2023-04-10 08:54 | Outpatient (REF) | payer MEDICARE, SELFPAY ==
--- NOTE | ~2023-04-10 | US_ITS ---
EXAMINATION: US ABDOMEN COMPLETE CLINICAL INFORMATION: Elevated LFTs. COMPARISON: None available. TECHNIQUE: Real-time imaging of the abdominal viscera. FINDINGS: PANCREAS: Normal. ABDOMINAL AORTA: Atherosclerotic changes are seen in the abdominal aorta with plaque without evidence of aneurysm. INFERIOR VENA CAVA: Visualized portions are normal. LIVER: The liver is normal in size. The liver contour is normal. There is diffuse increased liver parenchymal echogenicity, consistent with hepatic steatosis. No focal hepatic lesion. There is no intrahepatic biliary duct dilatation seen. GALLBLADDER: Normal. The gallbladder is physiologically distended without evidence of stones, sludge, polyps, wall thickening or pericholecystic fluid. COMMON BILE DUCT: Normal in caliber measuring 0.5 cm in diameter. RIGHT KIDNEY: Normal. No hydronephrosis. No renal calculi or focal parenchymal lesions. The kidney measures 10.0 cm in maximum dimension. LEFT KIDNEY: Normal. No hydronephrosis. No renal calculi or focal parenchymal lesions. The kidney measures 10.8 cm in maximum dimension. SPLEEN: Normal. The spleen measures 7.6 cm in maximum dimension. FREE FLUID: None. US/US abdomen complete IMPRESSION: Hepatic steatosis.
== END 2023-04-10 08:55 | disposition home or self-care (01) ==
LOC: HO.US 08:54
PROVIDERS: PCP Internal Medicine; Visit Provider Internal Medicine
DX: R94.5 Abnormal results of liver function studies (principal)
CPT/HCPCS: 76700

== ENCOUNTER 2023-10-27 08:23 | Outpatient (REF) | payer MEDICARE, SELFPAY ==
[2023-10-27 10:31] LABS: MANUAL DIFF FLAG NO
[2023-10-27 10:50] LABS: Basophils Percent Auto 0.5 % (0-2); Eosinophils Absolute Auto 0.2 X10*3/uL (0.0-0.4); Eosinophils Percent Auto 2.2 % (0-4); Hemoglobin 15.8 g/dl (14.0-18.0); Imm Gran Abs Auto 0.03 X10*3/uL (0.00-0.03); Imm Gran Pct Auto 0.4 % (0.0-0.4); Lymphocytes Absolute Auto 3.4 X10*3/uL (1.2-4.9); Lymphocytes Percent Auto 40.8 % (20-40); Mean Corpuscular HGB Conc 33.6 g/dl (31.0-36.0); Mean Corpuscular Volume 92.2 fL (80.0-98.0); Monocytes Absolute Auto 0.8 X10*3/uL (0.1-1.2); Monocytes Percent Auto 9.3 % (2-11); Neutrophils Absolute Auto 3.9 x10*3/uL (2.0-8.3); Neutrophils Percent Auto 46.8 % (45-73); Platelet Count 365 X10*3/uL (160-400); Red Cell Distribution Width 13.5 % (11.0-16.0); White Blood Count 8.3 X10*3/uL (4.8-10.8)
[2023-10-27 11:19] LABS: Prostate Specific Antigen 0.82 ng/mL (<0.05-4.0)
[2023-10-27 11:28] LABS: Alanine Aminotransferase 16 U/L (0-40); Alkaline Phosphatase 92 U/L (39-117); Anion Gap 11 (12-20); Aspartate Amino Transferase 24 U/L (5-37); Bilirubin Total 0.5 mg/dL (0.0-1.0); Calcium 9.9 mg/dL (8.4-10.2); Carbon Dioxide 31 mmol/L (22-29); Chloride 104 mmol/L (96-108); Estimated Glomerular Filt Rate > 60; Glucose Random 104 mg/dL (60-115); Potassium 5.8 mmol/L (3.3-5.1); Sodium 140 mmol/L (135-145)
[2023-10-27 11:37] LABS: Ferritin 630 ng/mL (20-250)
[2023-10-27 11:49] LABS: Blood Urea Nitrogen 13 mg/dL (9-16)
== END 2023-10-27 08:24 | disposition home or self-care (01) ==
LOC: HO.HMGCLDS 08:23
PROVIDERS: PCP Internal Medicine; Visit Provider Internal Medicine
DX: I10 Essential (primary) hypertension (principal); E83.110 Hereditary hemochromatosis; F10.11 Alcohol abuse, in remission; R74.01 Elevation of levels of liver transaminase levels; Z12.5 Encounter for screening for malignant neoplasm of prostate
CPT/HCPCS: 36415; 80053; 82728; 84153; 85025

== ENCOUNTER → 2023-11-24 07:53 | Outpatient (BNV) | payer MEDICARE, SELFPAY | PROVIDERS: PCP Internal Medicine; Referring Provider Internal Medicine; Visit Provider Internal Medicine Medical Oncology | DX: E83.110 Hereditary hemochromatosis (principal) | CPT/HCPCS: 99204; 99213 ==

== ENCOUNTER 2023-11-30 08:04 | Outpatient (REF) | payer MEDICARE, SELFPAY | END 2023-11-30 08:05 | disposition home or self-care (01) | LOC: HO.BBR 08:04 | PROVIDERS: Visit Provider Internal Medicine Medical Oncology | DX: Z13.89 Encounter for screening for other disorder (principal) ==

== ENCOUNTER 2024-01-01 08:02 | Outpatient (REF) | payer MEDICARE, SELFPAY ==
[2024-01-01 09:57] LABS: Iron 182 mcg/dL (45-160); Percent Iron Saturation 78 % (15-50); Total Iron Binding Capacity 232 mcg/dL (228-428); Unsaturated Iron Binding 50 ug/dL
[2024-01-01 10:15] LABS: Ferritin 549 ng/mL (20-250)
== END 2024-01-01 08:03 | disposition home or self-care (01) ==
LOC: HO.BBR 08:02
PROVIDERS: PCP Internal Medicine; Visit Provider Internal Medicine Medical Oncology
DX: E83.110 Hereditary hemochromatosis (principal)
CPT/HCPCS: 36415; 82728; 83540

== ENCOUNTER 2024-02-01 08:04 | Outpatient (REF) | payer MEDICARE, SELFPAY ==
[2024-02-01 12:04] LABS: Ferritin 411 ng/mL (20-250); Iron 222 mcg/dL (45-160); Percent Iron Saturation 90 % (15-50); Total Iron Binding Capacity 247 mcg/dL (228-428); Unsaturated Iron Binding < 25 ug/dL
== END 2024-02-01 08:05 | disposition home or self-care (01) ==
LOC: HO.BBR 08:04
PROVIDERS: PCP Internal Medicine; Visit Provider Internal Medicine Medical Oncology
DX: E83.110 Hereditary hemochromatosis (principal)
CPT/HCPCS: 36415; 82728; 83540

== ENCOUNTER 2024-03-03 08:07 | Outpatient (REF) | payer MEDICARE, SELFPAY | END 2024-03-03 08:08 | disposition home or self-care (01) | LOC: HO.BBR 08:07 | PROVIDERS: PCP Internal Medicine; Visit Provider Internal Medicine Medical Oncology | DX: Z13.89 Encounter for screening for other disorder (principal) ==

== ENCOUNTER 2024-04-04 08:06 | Outpatient (REF) | payer MEDICARE, SELFPAY ==
[2024-04-04 09:42] LABS: Iron 214 mcg/dL (45-160); Percent Iron Saturation 90 % (15-50); Total Iron Binding Capacity 239 mcg/dL (228-428); Unsaturated Iron Binding < 25 ug/dL
[2024-04-04 09:51] LABS: Ferritin 351 ng/mL (20-250)
== END 2024-04-04 08:07 | disposition home or self-care (01) ==
LOC: HO.BBR 08:06
PROVIDERS: PCP Internal Medicine; Visit Provider Internal Medicine Medical Oncology
DX: E83.110 Hereditary hemochromatosis (principal)
CPT/HCPCS: 36415; 82728; 83540

== ENCOUNTER 2024-04-22 15:28 | Inpatient (IN) | payer MEDICARE, SELFPAY ==
--- NOTE | ~2024-04-22 | CT_ITS ---
EXAMINATION: CT ABDOMEN AND PELVIS WITH CONTRAST CLINICAL INFORMATION: Right lower quadrant pain. COMPARISON: None available. TECHNIQUE: Multidetector volumetric images were obtained from the superior aspect of the liver through the pubic symphysis following administration 85 mL of Omnipaque 350 intravenous contrast. Sagittal and coronal reformatted images were obtained on the technologist's workstation. Oral contrast: No This CT examination was performed using dose optimization techniques as appropriate, variously including the following: *Automated exposure control *Adjustment of mA and/or kV according to patient size (this includes techniques or standardized protocols for targeted exams where dose is matched to indication/reason for exam; i.e. extremities or head) *Use of iterative reconstruction technique DLP: 421 mGy-cm FINDINGS: LUNG BASES: There are linear bibasilar opacities. LIVER, GALLBLADDER, AND BILIARY TREE: The liver is normal in size, shape, and attenuation. No focal hepatic lesion or biliary ductal dilatation is present. The gallbladder is unremarkable with no evidence of radiopaque gallstones, gallbladder wall thickening, or obvious pericholecystic inflammatory changes. PANCREAS: Unremarkable. SPLEEN: Unremarkable. ADRENAL GLANDS: There is bilateral adrenal gland thickening and nodularity more prominent on the left. KIDNEYS AND URETERS: The kidneys are normal in size, shape, and attenuation. No hydronephrosis, hydroureter, or calculi seen. No perinephric stranding. BLADDER: Unremarkable. GASTROINTESTINAL TRACT: There are prominent fluid-filled possibly mildly thickened mid to distal small bowel loops. There is fluid within the right colon. The appendix is dilated up to 8 mm but contains air to the tip. There is minimal infiltration along the cecum. ABDOMINAL WALL: No significant hernia is appreciated. LYMPH NODES: Normal. VASCULAR: There is atherosclerotic plaque throughout the abdominal aorta and proximal branches PELVIC VISCERA: Unremarkable. OSSEOUS STRUCTURES: There is diffuse moderate to severe lumbar degenerative change. CT/CT abdomen pelvis w IV con IMPRESSION: 1. There are prominent fluid-filled mid to distal small bowel loops and fluid in the right colon. The appendix is dilated up to 8 mm but contains air to the tip. There is minimal infiltration along the cecum. All the above findings may be related to enteritis. Correlation and clinical follow-up suggested particularly concerning the appendiceal findings. 2. There is bilateral adrenal gland thickening and nodularity more prominent on the left. 3. There is diffuse moderate to severe degenerative change in the lumbar spine. Fleischner guidelines were followed. Electronically signed by: Damon Jacob MD 04/23/2024 12:13 AM [facility]
[2024-04-22 15:32] VITALS: BP 137/88; PULSE 77; RESP 20; TEMP 36.3; O2SAT 97; BMI 22.6
--- NOTE | 2024-04-22 15:32 | ED_ITS ---
HPI - General Adult General Chief complaint: Abdominal Pain Stated complaint: Abd pain Time Seen by Provider: 04/22/24 20:46 Source: patient Mode of arrival: ambulatory Limitations: no limitations History of Present Illness ED Provider: Wily MCKEON narrative: This is a 63-year-old male who presents to the ED complaining of right lower quadrant pain. Patient had a colonoscopy on Thursday, reports that he had some discomfort after the procedure however was not pain. He reports that on Thursday he began feeling some pain in the right lower quadrant that began to worsen, and that today the pain become unbearable so he presented to the emergency department. He reports the pain is 7 to 8/10, describes as a sharp, denies fevers. Patient had a small bowel movement on Thursday he reports however has not had a bowel movement since. He is able to pass flatus. Patient also tried to drank a allison yovana about an hour ago, however has since vomited it up. Patient still has his appendix, denies any previous abdominal surgeries. Related Data Home Medications ?Medication ?Instructions ?Recorded ?Confirmed buspirone 10 mg tablet 20 mg PO BID 11/24/23 02/25/24 escitalopram oxalate 10 mg tablet 10 mg PO DAILY 11/24/23 02/25/24 metoprolol succinate 50 mg 50 mg PO DAILY 11/24/23 02/25/24 tablet,extended release 24 hr Allergies Allergy/AdvReac Type Severity Reaction Status Date / Time No Known Allergies Allergy Verified 04/22/24 15:33 Review of Systems 2 Constitutional: Constitutional: Reports chills and Reports poor appetite Gastrointestinal: Gastrointestinal: Reports abdominal pain, Denies coffee ground emesis and Reports vomiting PMFSH Past Medical History Medical History Nicotine dependence, cigarettes, uncomplicated Surgical History History of cervical spinal surgery History of left knee surgery History of lumbar surgery History of vasectomy Family History Family History Father Colon cancer Social History Social History Household Members: Spouse Alcohol intake: current Alcohol intake frequency: 3 or more drinks per day Alcohol type: hard liquor Patient Tobacco Use Status: Current everyday Tobacco user Tobacco use type: Cigarette Years Smoked: (current smoker - onset 20yo, 1/2ppd x 42yrs, 20pyh) Smoked in Last 30 Days: No Use of substances other than those prescribed or required for medical reasons: No Advance Directives: No Advance Directives Information Provided: No service: No Current occupational status: disabled Physical Exam ED Vital Signs: Vital Signs - 24 hr 04/22/24 15:32 04/22/24 21:13 04/22/24 21:27 Temperature 97.4 F 101.2 F H Pulse Rate 77 86 Respiratory Rate 20 18 20 Blood Pressure 137/88 134/73 Pulse Oximetry 97 92 Oxygen Delivery Method Room Air Room Air 04/23/24 00:16 Temperature 98.5 F Pulse Rate 75 Respiratory Rate 16 Blood Pressure 102/64 Pulse Oximetry 94 Oxygen Delivery Method Room Air BMI result Body Mass Index 22.6 Const General: cooperative and no acute distress Nutritional Appearance: thin Resp Other: Mild wheezing auscultated, patient reports that he does not feel short of breath. He does have a history of asthma and COPD. Effort & Inspection: normal respiratory effort and able to speak in complete sentences GI Other: Soft, nondistended abdomen. No overlying skin changes, bowel sounds present all 4 quadrants. Tenderness to palpation of the right lower quadrant, Rovsing sign positive, Psoas negative. Palpation (GI): Soft to palpation, Firmness to palpation present (GI), Tenderness to palpation present (GI) in the RLQ and Guarding due to palpation present (GI) Skin Other: Mild moderate skin tenting the hands bilaterally. Mucous membranes moist. Course Course Course Narrative: This is an RME done by EDIE Dixon: Additional HPI, ROS, PE not included below will be deferred to primary provider.63-year-old male presents to the emergency department with 8/10 right-sided abdominal pain status post colonoscopy on Thursday. This colonoscopy was done at [facility]. Denies fevers, chills, chest pain, shortness breath, nausea, vomiting, abdominal pain, diarrhea. Appearance: Alert.? Oriented X3.? No acute cardiopulmonary distress distress.? Head: Normocephalic, atraumatic, no step-offs or deformities CVS: Pulses normal.? Respiratory: No respiratory distress.? Abdomen: Soft and nontender.? Skin: ? Normal skin color. Extremities: 5/5 strength to bilateral upper and lower extremities Back: No midline tenderness, no C-spine tenderness, full range of motion, No CVA tenderness bilaterally Neuro: Oriented X 3.? No motor deficit.? No sensory deficit. Reevaluation(s) Reevaluation #1: Patient's CT resulted showing concern for acute appendicitis. I discussed with the surgical team, Dr. Slater who will admit the patient to the surgical service and plan for OR later this morning Time: 00:30 Medications Administered Discontinued Medications Generic Name Dose Route Start Last Admin Trade Name Tavoq PRN Reason Stop Dose Admin Acetaminophen 975 mg 04/22/24 21:19 04/22/24 21:26 Acetaminophen 325 Mg Tablet PO 04/22/24 21:20 975 mg ONCE ONE Administration Iohexol 85 ml 04/22/24 22:01 04/22/24 22:02 Iohexol 350 Mg/Ml 100 Ml Infus..Btl IV 04/22/24 22:02 85 ml ONCE ONE Administration Morphine Sulfate 4 mg 04/22/24 21:19 04/22/24 21:27 Morphine Sulfate 4 Mg/Ml Cartridge IVPUSH 04/22/24 21:20 4 mg ONCE ONE Administration Protocol Ondansetron HCl 4 mg 04/22/24 21:19 04/22/24 21:27 Ondansetron Hcl 4 Mg/2 Ml Vial IVPUSH 04/22/24 21:20 4 mg ONCE ONE Administration Medical Decision Making Medical Decision Making [facility] Narrative: 63-year-old male presents for evaluation of right lower abdominal pain. He was found to have a temp of 101. He has significant right lower quadrant tenderness on exam with rebound and guarding, high suspicion of appendicitis. There is also a possibility that he had a bowel perforation complication with his colonoscopy and has peritonitis. We will treat with Zosyn, be fluids and we will get a CT scan of the abdomen pelvis. Differential Diagnosis Differential Diagnoses: The differential diagnosis associated with the presentation includes Appendicitis Perforated viscus Cholecystitis Cholelithiasis Lab Data [facility] Lab Attestation statement: I reviewed the patient's lab results. Leukocytosis to 14.9 with a very mild anemia. There is a sodium of 134 otherwise chemistries within normal limits 04/22/24 15:50 04/22/24 15:50 Labs: Lab Results 04/22/24 Range/Units 15:50 WBC 14.9 H (4.8-10.8) X10*3/uL RBC 4.35 L (4.60-5.80) X10*6/uL Hgb 13.7 L (14.0-18.0) g/dl Hct 39.3 L (42.0-52.0) % MCV 90.3 (80.0-98.0) fL MCH 31.5 (27.0-33.0) pg MCHC 34.9 (31.0-36.0) g/dl RDW 13.1 (11.0-16.0) % Plt Count 261 (160-400) X10*3/uL MPV 8.7 L (9.4-12.4) fL Immature Gran % (Auto) 0.4 (0.0-0.4) % Neut % (Auto) 76.8 H (45-73) % Lymph % (Auto) 15.9 L (20-40) % [place] % (Auto) 5.8 (2-11) % Eos % (Auto) 0.9 (0-4) % Baso % (Auto) 0.2 (0-2) % Lymph # (Auto) 2.4 (1.2-4.9) X10*3/uL [place] # (Auto) 0.9 (0.1-1.2) X10*3/uL Eos # (Auto) 0.1 (0.0-0.4) X10*3/uL Baso # (Auto) 0.0 (0.0-0.2) X10*3/uL Abs Immat Gran (auto) 0.06 H (0.00-0.03) X10*3/uL Absolute Neuts (auto) 11.4 H (2.0-8.3) x10*3/uL Absolute Nucleated RBC 0.000 (0.0-0.012) X10*3/uL Nucleated RBC % (auto) 0.0 (0.0-0.2) /100WBC Sodium 134 L (135-145) mmol/L Potassium 4.3 (3.3-5.1) mmol/L Chloride 102 (96-108) mmol/L Carbon Dioxide 25 (22-29) mmol/L Anion Gap 11 L (12-20) BUN 10 (9-16) mg/dL Creatinine 0.78 (0.5-1.4) mg/dL Estim Creat Clear Calc 97.4 Estimated GFR > 60 Random Glucose 108 (60-115) mg/dL Calcium 9.3 (8.4-10.2) mg/dL Magnesium 2.0 (1.6-2.6) mg/dL Total Bilirubin 0.7 (0.0-1.0) mg/dL AST 27 (5-37) U/L ALT 17 (0-40) U/L Alkaline Phosphatase 73 (39-117) U/L Total Protein 7.7 (6.5-8.0) g/dL Albumin 4.2 (3.5-5.0) g/dL Lipase 18 (8-78) U/L Urine Color Yellow Urine Appearance Clear Urine pH 5.5 (5.0-9.0) Ur Specific [place] 1.015 (1.005-1.025) Urine Protein Negative (Neg-Trace) mg/dL Urine Glucose (UA) Negative (Negative) mg/dL Urine Ketones Negative (Negative) mg/dL Urine Blood Negative (Negative) Urine Nitrite Negative (Negative) Ur Leukocyte Esterase Negative (Negative) Urine Opiates Screen Not Detected (Not Detect) Ur Buprenorphine Scrn Not Detected (Not Detect) ng/mL Ur Oxycodone Screen Not Detected (Not Detect) ng/mL Urine Methadone Screen Not Detected (Not Detect) ng/mL Urine Fentanyl Screen Not Detected (Not Detect) Ur Barbiturates Screen Not Detected (Not Detect) Ur Phencyclidine Scrn Not Detected (Not Detect) Ur Amphetamines Screen Not Detected (Not Detect) U Benzodiazepines Scrn Not Detected (Not Detect) Urine Cocaine Screen Not Detected (Not Detect) U Marijuana (THC) Screen POSITIVE H (Not Detect) Ethyl Alcohol < 10 mg/dL Independent Interpretation I performed an independent interpretation of an: CT Scan (agree with radiology interpretation) Radiology Impression Discussion of test interpretation with radiology: I have reviewed the radiologist's reading. Radiologist Impression: CT/CT abdomen pelvis w IV con IMPRESSION: 1. There are prominent fluid-filled mid to distal small bowel loops and fluid in the right colon. The appendix is dilated up to 8 mm but contains air to the tip. There is minimal infiltration along the cecum. All the above findings may be related to enteritis. Correlation and clinical follow-up suggested particularly concerning the appendiceal findings. 2. There is bilateral adrenal gland thickening and nodularity more prominent on the left. 3. There is diffuse moderate to severe degenerative change in the lumbar spine. Fleischner guidelines were followed. Electronically signed by: Damon Jacob MD 04/23/2024 12:13 AM [facility] Discharge Plan Discharge Clinical Impression: Acute appendicitis Patient Disposition: Admitted As Inpatient Prescriptions: No Action metoprolol succinate 50 mg tablet extended release 24 hr 50 mg PO DAILY buspirone 10 mg tablet 20 mg PO BID escitalopram oxalate 10 mg tablet 10 mg PO DAILY Print Language: [place]
[2024-04-22 15:55] LABS: MANUAL DIFF FLAG NO
[2024-04-22 15:56] LABS: Basophils Percent Auto 0.2 % (0-2); Eosinophils Absolute Auto 0.1 X10*3/uL (0.0-0.4); Eosinophils Percent Auto 0.9 % (0-4); Hematocrit 39.3 % (42.0-52.0); Hemoglobin 13.7 g/dl (14.0-18.0); Imm Gran Abs Auto 0.06 X10*3/uL (0.00-0.03); Imm Gran Pct Auto 0.4 % (0.0-0.4); Lymphocytes Absolute Auto 2.4 X10*3/uL (1.2-4.9); Lymphocytes Percent Auto 15.9 % (20-40); Mean Corpuscular HGB Conc 34.9 g/dl (31.0-36.0); Mean Corpuscular Hemoglobin 31.5 pg (27.0-33.0); Mean Corpuscular Volume 90.3 fL (80.0-98.0); Mean Platelet Volume 8.7 fL (9.4-12.4); Monocytes Absolute Auto 0.9 X10*3/uL (0.1-1.2); Monocytes Percent Auto 5.8 % (2-11); Neutrophils Absolute Auto 11.4 x10*3/uL (2.0-8.3); Neutrophils Percent Auto 76.8 % (45-73); Platelet Count 261 X10*3/uL (160-400); Red Blood Count 4.35 X10*6/uL (4.60-5.80); Red Cell Distribution Width 13.1 % (11.0-16.0); White Blood Count 14.9 X10*3/uL (4.8-10.8)
[2024-04-22 15:57] LABS: Appearance Urine Clear; Color Urine Yellow; Glucose Urine UA Negative (Negative); Leukocyte Esterase Urine Negative (Negative); Nitrite Urine Negative (Negative); PH 5.5 (5.0-9.0); Specific Gravity - Urine 1.015 (1.005-1.025); Urine Blood Negative (Negative); Urine Ketones Negative (Negative); Urine Protein Negative (Neg-Trace)
[2024-04-22 16:07] LABS: Amphetamine Screen Urine Not Detected (Not Detect); Barbiturates, Urine Not Detected (Not Detect); Benzodiazepines Screen Urine Not Detected (Not Detect); Buprenorphine Scr Not Detected (Not Detect); Cannabinoid Screen Urine POSITIVE (Not Detect); Cocaine Screen Urine Not Detected (Not Detect); Fentanyl, urine Not Detected (Not Detect); Methadone Screen, Urine Not Detected (Not Detect); Opiate Screen Urine Not Detected (Not Detect); Oxycodone Screen Urine Not Detected (Not Detect); Phencyclidine Screen Urine Not Detected (Not Detect)
[2024-04-22 16:20] LABS: Albumin Level 4.2 g/dL (3.5-5.0); Anion Gap 11 (12-20); Aspartate Amino Transferase 27 U/L (5-37); Bilirubin Total 0.7 mg/dL (0.0-1.0); Blood Urea Nitrogen 10 mg/dL (9-16); Calcium 9.3 mg/dL (8.4-10.2); Carbon Dioxide 25 mmol/L (22-29); Chloride 102 mmol/L (96-108); Creatinine Clr Calc Pharmacy 97.4; Estimated Glomerular Filt Rate > 60; Ethanol < 10 mg/dL; Glucose Random 108 mg/dL (60-115); Lipase 18 U/L (8-78); Potassium 4.3 mmol/L (3.3-5.1); Sodium 134 mmol/L (135-145); Total Protein 7.7 g/dL (6.5-8.0)
[2024-04-22 16:33] LABS: Alanine Aminotransferase 17 U/L (0-40); Alkaline Phosphatase 73 U/L (39-117)
[2024-04-22 21:13] VITALS: BP 134/73; PULSE 86; RESP 18; TEMP 38.4; O2SAT 92
--- NOTE | 2024-04-22 21:16 | PC.NURSE ---
pt from home, a&ox4, respirations even and unlabored. pt reports he had a colonoscopy 4 days ago and reports since then he has been having lower abdominal discomfort. pt denies n/v/d. pt denies any blood in stool at this time. pt also reports he has had a new recent cough. vitals obtained, pt noted to be febrile, carley izaguirre aware. 18G placed in left wrist.
[2024-04-22] MEDS: Acetaminophen 325 MG TABLET 975 MG PO (21:26)
[2024-04-22 21:27] VITALS: RESP 20
[2024-04-22] MEDS: Morphine Sulfate 4 MG/ML CARTRIDGE IVPUSH (21:27)
[2024-04-22] MEDS: ondansetron HCL 4 MG/2 ML VIAL IVPUSH (21:27)
--- NOTE | 2024-04-22 21:29 | PC.NURSE ---
pt medicated per mar for 7/10 lower abdominal pain.
[2024-04-22] MEDS: iohexoL 350 MG/ML 100 ML INFUS..BTL 85 ML IV (22:02)
[2024-04-23] VITALS (13 sets, daily range): BP systolic 102–143; BP diastolic 62–89; PULSE 66–86; RESP 12–20; TEMP 36.1–37; O2SAT 92–98; BMI 21.1
[2024-04-23] MEDS: Piperacillin Sodium/Tazobactam 3.375 GM in 0.9 % Sodium Chloride 50 ML IV ×5 (01:14→23:41)
[2024-04-23] MEDS: Dextrose 5 % and Lactated Ring 1,000 ML 125 ML IVCONT ×3 (01:51→21:02)
[2024-04-23] MEDS: HYDROmorphone HCl 0.5 MG/0.5 ML SYRINGE IVPUSH ×3 (05:53→21:55)
--- NOTE | 2024-04-23 07:27 | PHA.MEDREC ---
Pharmacy Consult ? Medication Reconciliation Pharmacy has reviewed the medication reconciliation done by RN.
--- NOTE | 2024-04-23 07:29 | P.HPGS_ITS ---
History of Present Illness History of Present Illness Date of Service: 04/23/24 Chief complaint: Acute appendicitis Narrative: Tony Archibald is a 63 year old male presenting with complaints of right lower quadrant abdominal pain of 2 days' duration. The pain initially began in the left and right lower quadrants but then became more isolated to the right lower quadrant. He denies nausea, vomiting, fever, chills, diarrhea or constipation. He did have a bowel movement yesterday which was normal and denied any hematochezia. He denies a previous history of similar abdominal pain. He subsequently presented to the emergency department was noted to have an elevated WBC. Subsequent CT abdomen and pelvis revealed a distended and inflamed appendix suggestive of acute appendicitis. He is admitted to the surgical service for further management of his acute appendicitis. Review of Systems Review of Systems: Yes all other systems are reviewed and are negative Gastrointestinal: Gastrointestinal: Reports abdominal pain, Denies nausea and Denies vomiting PMFSH Past Medical History Medical History (Updated 04/23/24 @ 07:33 by Tony Grider MD) History of ETOH abuse Hereditary hemochromatosis Nicotine dependence, cigarettes, uncomplicated Family History Family History Father Colon cancer Surgical History Surgical History History of lumbar surgery History of vasectomy History of cervical spinal surgery History of left knee surgery Social History Social History Household Members: Spouse Housing: House Do you presently have visiting nurse or other home services: No Alcohol intake: current Alcohol intake frequency: 3 or more drinks per day Alcohol type: hard liquor Patient Tobacco Use Status: Current everyday Tobacco user Tobacco use type: Cigarette Cigarette Packs Per Day: 0.5 Cigarettes Per Day: 10.0 Years Smoked: 40 Smoked in Last 30 Days: Yes Patient Interested in Nicotine Replacement: Yes Patient Given Instructions on How to Stop Smoking: Yes Date Education Initiated: 04/23/24 Second Hand Smoke Exposure: No Use of substances other than those prescribed or required for medical reasons: No Substance Use Type: Marijuana Substance Use Frequency: Occasionally Last Used Substance: Days (ago) Currently Displaying Signs/Symptoms of Drug Intoxication Withdrawal: No Any prior treatment program specific to substance use: No Have you been hit, kicked, punched, or otherwise hurt by someone within the past year? If so, by whom?: No Do you feel safe in your current relationship?: Yes Is there a partner from a previous relationship who is making you feel unsafe now?: No Are you made to feel afraid or neglected: No Advance Directives: No Advance Directives Information Provided: No Do you have a plan to hurt others: No Plan Recently lost weight without trying: No Nutrition Risks: No Nutritional Risk Poor oral hygiene: No service: No Current occupational status: disabled Cuff-Protects Allergies Allergy/AdvReac Type Severity Reaction Status Date / Time No Known Allergies Allergy Verified 04/22/24 15:33 Active Medications: Current Medications Acetaminophen (Acetaminophen 325 Mg Tablet) 650 mg PO Q6H PRN PRN Reason: Pain, Mild (Pain Scale 1-3), fever or headache Hydromorphone HCl (Hydromorphone Hcl 0.5 Mg/0.5 Ml Syringe) 0.5 mg IVPUSH Q3H PRN; Protocol PRN Reason: Pain, Severe (Pain Scale 7-10) Last Admin: 04/23/24 05:53 Dose: 0.5 mg Dextrose/Lactated Ringer's (D5lr) 1,000 mls @ 125 mls/hr IVCONT .Q8H [facility] Last Admin: 04/23/24 01:51 Dose: 125 mls/hr Piperacillin Sod/Tazobactam (Sod 3.375 gm/ Sodium Chloride) 50 mls @ 100 mls/hr IV Q6H [facility] Last Infusion: 04/23/24 06:19 Dose: Infused Ondansetron HCl (Ondansetron Hcl 4 Mg/2 Ml Vial) 4 mg IVPUSH QID PRN PRN Reason: Nausea Sodium Chloride (0.9 % Sodium Chloride Flush 3 Ml Syringe) 3 ml IVFLUSH QSHIFT [facility] Home Medications ?Medication ?Instructions ?Recorded ?Confirmed ?Last Taken ?Type buspirone 10 mg tablet 20 mg PO BID 11/24/23 04/23/24 Unknown History escitalopram oxalate 10 mg tablet 10 mg PO DAILY 11/24/23 04/23/24 Unknown History metoprolol succinate 50 mg 50 mg PO DAILY 11/24/23 04/23/24 Unknown History tablet,extended release 24 hr trazodone 50 mg tablet 50 mg PO BEDTIME 04/23/24 04/23/24 Unknown History Physical Exam Vital Signs: Vital Signs: Last Vital Signs Temp 98.3 F 04/23/24 06:59 Pulse 67 04/23/24 06:59 Resp 16 04/23/24 06:59 BP 112/72 04/23/24 06:59 Pulse Ox 93 04/23/24 06:59 O2 Del Method Room Air 04/23/24 06:59 BMI result Body Mass Index 21.1 Const: General: comfortable Nutritional Appearance: thin Orientation/consciousness: patient oriented x3 Limitations: ambulation with cane HEENT: Head: Yes normocephalic and Yes atraumatic Resp: Effort & Inspection: normal respiratory effort, no audible wheezes, no cough and no respiratory distress GI: Inspection: Yes normal to inspection Palpation (GI): Soft to palpation, Tenderness to palpation present (GI) in the RLQ and at McBurney's point, no guarding and not rigid Percussion: Yes normal to percussion Auscultation: normal bowel sounds Skin: Other: Warm, dry, no rash Neuro: General: patient oriented x3 Extrem: General: Yes no clubbing, cyanosis or edema Results Results Labs: Short CBC 04/22/24 Range/Units 15:50 WBC 14.9 H (4.8-10.8) X10*3/uL Hgb 13.7 L (14.0-18.0) g/dl Hct 39.3 L (42.0-52.0) % Plt Count 261 (160-400) X10*3/uL BMP 04/22/24 15:50 Sodium 134 L Potassium 4.3 Chloride 102 Carbon Dioxide 25 BUN 10 Creatinine 0.78 Calcium 9.3 Liver Function 04/22/24 Range/Units 15:50 Total Bilirubin 0.7 (0.0-1.0) mg/dL AST 27 (5-37) U/L ALT 17 (0-40) U/L Alkaline Phosphatase 73 (39-117) U/L Albumin 4.2 (3.5-5.0) g/dL Urine 04/22/24 Range/Units 15:50 Urine Color Yellow Urine Appearance Clear Urine pH 5.5 (5.0-9.0) Ur Specific [place] 1.015 (1.005-1.025) Urine Protein Negative (Neg-Trace) mg/dL Urine Glucose (UA) Negative (Negative) mg/dL Assessment and Plan (1) Acute appendicitis: Qualifiers: Acute appendicitis type: with localized peritonitis Appendicitis gangrene presence: without gangrene Appendicitis perforation presence: without perforation Appendicitis abscess presence: without abscess Qualified Code(s): K35.30 - Acute appendicitis with localized peritonitis, without perforation or gangrene Status: Acute Plan 63-year-old male patient presenting with complaints of abdominal pain in the right lower quadrant found to have tenderness in the right lower quadrant on examination. Workup revealed an elevated WBC and CT abdomen and pelvis consistent with acute appendicitis. I recommended proceeding to a laparoscopic or possible open cholecystectomy. After discussion of the procedure, risks, and alternatives, he consents to a laparoscopic or possible open cholecystectomy. He has been added onto the operative schedule for today. Quality Stroke Does the patient have a stroke diagnosis?: No VTE Prior VTE?: No VTE Risk Level:: Surgical - low VTE Device Contraindication: N/A - Device Ordered VTE Drug Contraindication: Treatment Not Indicated Procedures Date of Service Date of Service: 04/23/24
--- NOTE | 2024-04-23 08:15 | P.CONAN_ITS ---
HPI - Anesthesia Eval Consult details Narrative: Acute appendicitis PMFSH Active Problems Active Problems: All Active Problems Acute appendicitis (Acute) Hereditary hemochromatosis (Acute) History of ETOH abuse (Acute) Nicotine dependence, cigarettes, uncomplicated (Acute) Past Medical History Medical History (Updated 04/23/24 @ 07:33 by Tony Grider MD) History of ETOH abuse Hereditary hemochromatosis Nicotine dependence, cigarettes, uncomplicated Family History Family History Father Colon cancer Family history of problems with anesthesia: No Surgical History Surgical History History of lumbar surgery History of vasectomy History of cervical spinal surgery History of left knee surgery History of Problems with Anesthesia: No Social History Social History Household Members: Spouse Housing: House Do you presently have visiting nurse or other home services: No Alcohol intake: current Alcohol intake frequency: 3 or more drinks per day Alcohol type: hard liquor Patient Tobacco Use Status: Current everyday Tobacco user Tobacco use type: Cigarette Cigarette Packs Per Day: 0.5 Cigarettes Per Day: 10.0 Years Smoked: 40 Smoked in Last 30 Days: Yes Patient Interested in Nicotine Replacement: Yes Patient Given Instructions on How to Stop Smoking: Yes Date Education Initiated: 04/23/24 Second Hand Smoke Exposure: No Use of substances other than those prescribed or required for medical reasons: No Substance Use Type: Marijuana Substance Use Frequency: Occasionally Last Used Substance: Days (ago) Currently Displaying Signs/Symptoms of Drug Intoxication Withdrawal: No Any prior treatment program specific to substance use: No Have you been hit, kicked, punched, or otherwise hurt by someone within the past year? If so, by whom?: No Do you feel safe in your current relationship?: Yes Is there a partner from a previous relationship who is making you feel unsafe now?: No Are you made to feel afraid or neglected: No Advance Directives: No Advance Directives Information Provided: No Do you have a plan to hurt others: No Plan Recently lost weight without trying: No Nutrition Risks: No Nutritional Risk Poor oral hygiene: No service: No Current occupational status: disabled Meds Allergies Allergy/AdvReac Type Severity Reaction Status Date / Time No Known Allergies Allergy Verified 04/22/24 15:33 Active Medications: Current Medications Acetaminophen (Acetaminophen 325 Mg Tablet) 650 mg PO Q6H PRN PRN Reason: Pain, Mild (Pain Scale 1-3), fever or headache Hydromorphone HCl (Hydromorphone Hcl 0.5 Mg/0.5 Ml Syringe) 0.5 mg IVPUSH Q3H PRN; Protocol PRN Reason: Pain, Severe (Pain Scale 7-10) Last Admin: 04/23/24 05:53 Dose: 0.5 mg Dextrose/Lactated Ringer's (D5lr) 1,000 mls @ 125 mls/hr IVCONT .Q8H DONTE Last Admin: 04/23/24 01:51 Dose: 125 mls/hr Piperacillin Sod/Tazobactam (Sod 3.375 gm/ Sodium Chloride) 50 mls @ 100 mls/hr IV Q6H [facility] Last Infusion: 04/23/24 06:19 Dose: Infused Nicotine (Nicotine 21 Mg Patch.Td24) 21 mg TRANSDERMA DAILY [facility] Ondansetron HCl (Ondansetron Hcl 4 Mg/2 Ml Vial) 4 mg IVPUSH QID PRN PRN Reason: Nausea Sodium Chloride (0.9 % Sodium Chloride Flush 3 Ml Syringe) 3 ml IVFLUSH QSHIFT [facility] Home Medications ?Medication ?Instructions ?Recorded ?Confirmed ?Last Taken ?Type buspirone 10 mg tablet 20 mg PO BID 11/24/23 04/23/24 Unknown History escitalopram oxalate 10 mg tablet 10 mg PO DAILY 11/24/23 04/23/24 Unknown History metoprolol succinate 50 mg 50 mg PO DAILY 11/24/23 04/23/24 Unknown History tablet,extended release 24 hr trazodone 50 mg tablet 50 mg PO BEDTIME 04/23/24 04/23/24 Unknown History Exam Height,Weight and Vital Signs: Height 5 ft 9 in Weight 64.7 kg Last Vital Signs Temp 98.3 F 04/23/24 06:59 Pulse 67 04/23/24 06:59 Resp 16 04/23/24 06:59 BP 112/72 04/23/24 06:59 Pulse Ox 93 04/23/24 06:59 O2 Del Method Room Air 04/23/24 06:59 Pertinent Lab Results Pertinent Lab Results: Laboratory Tests 04/22/24 15:50 WBC 14.9 H RBC 4.35 L Hgb 13.7 L Hct 39.3 L MCV 90.3 MCH 31.5 MCHC 34.9 RDW 13.1 Plt Count 261 MPV 8.7 L Immature Gran % (Auto) 0.4 Neut % (Auto) 76.8 H Lymph % (Auto) 15.9 L [place] % (Auto) 5.8 Eos % (Auto) 0.9 Baso % (Auto) 0.2 Lymph # (Auto) 2.4 [place] # (Auto) 0.9 Eos # (Auto) 0.1 Baso # (Auto) 0.0 Abs Immat Gran (auto) 0.06 H Absolute Neuts (auto) 11.4 H Absolute Nucleated RBC 0.000 Nucleated RBC % (auto) 0.0 Sodium 134 L Potassium 4.3 Chloride 102 Carbon Dioxide 25 Anion Gap 11 L BUN 10 Creatinine 0.78 Estim Creat Clear Calc 97.4 Estimated GFR > 60 Random Glucose 108 Calcium 9.3 Magnesium 2.0 Total Bilirubin 0.7 AST 27 ALT 17 Alkaline Phosphatase 73 Total Protein 7.7 Albumin 4.2 Lipase 18 Urine Color Yellow Urine Appearance Clear Urine pH 5.5 Ur Specific [place] 1.015 Urine Protein Negative Urine Glucose (UA) Negative Urine Ketones Negative Urine Blood Negative Urine Nitrite Negative Ur Leukocyte Esterase Negative Urine Opiates Screen Not Detected Ur Buprenorphine Scrn Not Detected Ur Oxycodone Screen Not Detected Urine Methadone Screen Not Detected Urine Fentanyl Screen Not Detected Ur Barbiturates Screen Not Detected Ur Phencyclidine Scrn Not Detected Ur Amphetamines Screen Not Detected U Benzodiazepines Scrn Not Detected Urine Cocaine Screen Not Detected U Marijuana (THC) Screen POSITIVE H Ethyl Alcohol < 10 Airway Mallampati Class: II TM Dist: >3cm Neck ROM: Full Denture: Upper Loose/Missing/Broken Teeth: No Heart: RRR Lungs: CTA Assessment and Plan Assessment Anesthesia Assessment: Anesthesia Plan Discussed and Chart Reviewed Final Anesthetic Review Family History of Problems with Anesthesia: No History of Problems with Anesthesia: No NPO: Yes ASA Class: II and Emergency Final Preanesthetic Review: No Changes in Pt Med Stat, Meds/Allgs Chart Reviewed, Consent Obtained/Reviewed and Anes Risks/Benef Reviewed Patient Risk: Intermediate Procedure Risk: Intermediate Anesthetic Plan Anesthetic Plan: GA Disposition: Standard PACU
--- NOTE | 2024-04-23 10:17 | W.PM.OPN ---
Operative Note Operative Note Date of Service: 04/23/24 Narrative: Preoperative diagnosis: Acute appendicitis Postoperative diagnosis: Same Procedure: Laparoscopic appendectomy Surgeon: Tony Grider MD Retail Furniture Sales: None Anesthesia: General endotracheal Indications for procedure: 63-year-old male patient presenting with complaints of abdominal pain located in the lower abdomen radiating into the right lower quadrant of 48 hours duration. The pain increased in severity over the last 24 hours and he subsequently presented to the emergency department. He was found to have an elevated WBC. CT abdomen and pelvis revealed a dilated appendix with inflammatory changes around the cecum. On examination he was found to be tender in the right lower quadrant over McBurney's point suggestive of acute appendicitis. Operative findings: Evidence of acute appendicitis with surrounding phlegmon around the cecum Specimen:. Upon Estimated blood loss: 2 mL Complications: None Procedure details: Patient was brought to the OR and placed in a supine position. After administering general anesthesia the patient's abdomen was prepped with ChloraPrep and draped in a sterile fashion. A surgical time-out was called and consent confirmed. Patient received preoperative antibiotics and Venodyne boots were in place. Local anesthesia consisting of 0.75% Sensorcaine with epinephrine was infiltrated in periumbilical region. A 5 mm incision was made below the umbilicus and carried down through subcutaneous tissue. A Veress needle was then inserted while elevating abdominal cavity with towel clips. After a positive drop test the abdomen was insufflated to a pressure of 15 mm of mercury. The Veress needle was removed and a 5 mm trocar inserted. The camera was then inserted in the abdomen explored. A 2nd 5 mm trocars placed in the lower midline. A 12 mm trocar was then placed in the left lower quadrant. The patient was then placed in a Trendelenburg position and rotated to the left. The appendix was identified in the right lower quadrant and brought up using blunt dissecting clamps. The mesentery of the appendix was then divided using the LigaSure. The appendiceal artery was cauterized and divided using the LigaSure. Dissection was continued down to the base of the cecum. An Endo-GEOFFREY stapler with a purple reload was then used to divide the appendix at the base with the cecum. The appendix was then placed in Endo-Catch bag and brought out through the left lower quadrant incision. The abdomen was then irrigated with saline solution and suctioned dry. Wounds were checked for hemostasis. CO2 was then evacuated from the abdominal cavity and all trocars removed. Fascia was closed in the left lower quadrant incision using a [id number] 0 Polysorb suture. Skin was closed at all incisions using a subcuticular 4-0 Polysorb suture. Steri-Strips 2 x 2 gauze and Tegaderm were then applied. The patient tolerated the procedure well. Sponge, instrument, needle counts reported as correct. The patient was transferred to PACU in stable condition.
--- NOTE | 2024-04-23 10:34 | PC.NURSE ---
ls improved after incentive spirometer usage nonproductive cough noted no sob
[2024-04-23] MEDS: busPIRone HCl 10 MG TABLET 20 MG PO ×2 (11:13→20:57)
[2024-04-23] MEDS: Nicotine 21 MG PATCH.TD24 TRANSDERMA (11:13)
[2024-04-23] MEDS: Metoprolol Succinate ER 50 MG TAB.ER.24H PO (11:13)
[2024-04-23] MEDS: Escitalopram Oxalate 10 MG TABLET PO (11:14)
[2024-04-23] MEDS: Acetaminophen 1,000 MG/100 ML PIGGYBACK 400 MG IV ×3 (11:14→22:58)
--- NOTE | 2024-04-23 12:35 | MHC.CM.PN ---
PT LIVES WITH STATES HE IS INDEPENDENT HAS OWN RIDE HOME DC PLAN HOME NO SERVIES
[2024-04-23] MEDS: oxyCODONE HCl Immed Release 5 MG TABLET PO ×2 (14:31→20:59)
[2024-04-23] MEDS: traZODone HCL 50 MG TABLET PO (20:58)
[2024-04-24] MEDS: oxyCODONE HCl Immed Release 5 MG TABLET PO (02:47)
[2024-04-24 03:52] VITALS: BP 104/67; PULSE 76; RESP 16; TEMP 36.3; O2SAT 92
[2024-04-24] MEDS: Dextrose 5 % and Lactated Ring 1,000 ML 125 ML IVCONT (03:53)
[2024-04-24] MEDS: Acetaminophen 1,000 MG/100 ML PIGGYBACK 400 MG IV (05:04)
[2024-04-24] MEDS: Piperacillin Sodium/Tazobactam 3.375 GM in 0.9 % Sodium Chloride 50 ML IV (05:31)
[2024-04-24 06:43] LABS: MANUAL DIFF FLAG NO
[2024-04-24 06:51] LABS: Basophils Percent Auto 0.1 % (0-2); Eosinophils Percent Auto 0.2 % (0-4); Hematocrit 32.1 % (42.0-52.0); Hemoglobin 11.2 g/dl (14.0-18.0); Imm Gran Abs Auto 0.08 X10*3/uL (0.00-0.03); Imm Gran Pct Auto 0.5 % (0.0-0.4); Lymphocytes Absolute Auto 1.7 X10*3/uL (1.2-4.9); Lymphocytes Percent Auto 10.6 % (20-40); Mean Corpuscular HGB Conc 34.9 g/dl (31.0-36.0); Mean Corpuscular Hemoglobin 31.4 pg (27.0-33.0); Mean Corpuscular Volume 89.9 fL (80.0-98.0); Mean Platelet Volume 9.2 fL (9.4-12.4); Monocytes Absolute Auto 0.7 X10*3/uL (0.1-1.2); Monocytes Percent Auto 4.5 % (2-11); Neutrophils Absolute Auto 13.6 x10*3/uL (2.0-8.3); Neutrophils Percent Auto 84.1 % (45-73); Platelet Count 226 X10*3/uL (160-400); Red Blood Count 3.57 X10*6/uL (4.60-5.80); White Blood Count 16.2 X10*3/uL (4.8-10.8)
--- NOTE | 2024-04-24 07:58 | P.DS_ITS ---
DS: Providers Provider Date of Service: 04/24/24 Date of admission: 04/23/24 00:35 Date of discharge: 04/24/24 Primary care physician: Sugey Ramos MD Admitting clinician: Tony Grider Discharging clinician: Tony Grider DS: Diagnosis Discharge Diagnosis (1) Acute appendicitis: Status: Acute DS: Summary Hospital Course Hospital Course: Tony Archibald is a 63 year old male presenting with complaints of right lower quadrant abdominal pain of 2 days' duration. The pain initially began in the left and right lower quadrants but then became more isolated to the right lower quadrant. He denies nausea, vomiting, fever, chills, diarrhea or constipation. He did have a bowel movement yesterday which was normal and denied any hematochezia. He denies a previous history of similar abdominal pain. He subsequently presented to the emergency department was noted to have an elevated WBC. Subsequent CT abdomen and pelvis revealed a distended and inflamed appendix suggestive of acute appendicitis. He is admitted to the surgical service for further management of his acute appendicitis. Hospital course: Patient was admitted to the surgical service and scheduled for laparoscopic appendectomy. This was performed on 04/23/2024. Operative findings included distended appendix which was tortuous and inflamed. Also inflammation of the cecum was identified. No evidence of perforation or abscess. Surrounding phlegmon was noted. He tolerated the procedure well. On postoperative day 1 he was tolerating regular diet without nausea or vomiting. He has good pain control at this time. The patient has requested discharge to home. Discharge instructions: No lifting greater than 10 lb for 2 weeks. He should avoid driving for the next week. I recommended a follow-up examination in 1 week in the office. He was given a prescription for oxycodone 1 q.6 hours p.r.n. for pain. He can also take Tylenol or ibuprofen. Time spent discussing smoking cessation with patient: 3 to 10 minutes Status at Discharge Functional status at discharge: independent ambulation Overall status at discharge: patient is back to baseline Time Attestation Discharge Coordination Time (in mins): 20 Quality: Safe Use of Opioids Does Pt have an Active Cancer Diagnosis on the Problem List?: No Quality: Stroke Does the patient have a stroke diagnosis?: No Physical Exam Vital Signs: Vital Signs: Last Vital Signs Temp 97.4 F 04/24/24 03:52 Pulse 76 04/24/24 03:52 Resp 16 04/24/24 03:52 BP 104/67 04/24/24 03:52 Pulse Ox 92 04/24/24 03:52 O2 Del Method Room Air 04/24/24 03:52 O2 Flow Rate 2 04/23/24 10:46 BMI result Body Mass Index 21.1 Const: General: no acute distress Nutritional Appearance: well nourished Orientation/consciousness: patient oriented x3 Limitations: ambulation with cane Resp: Effort & Inspection: normal respiratory effort, no audible wheezes, no cough and no respiratory distress GI: Other: Trocar incisions are clean, dry, and intact without redness or discharge, abdomen is soft to palpation, no tympany to percussion. Neuro: General: patient oriented x3 Extrem: General: No edema DS: Data Data Completed and Pending Pending studies at discharge: Pending at discharge 04/23/24 09:24 Surgical [PTH] Routine Labs on day of discharge: Laboratory Results - last 24 hr 04/24/24 06:39 WBC 16.2 H RBC 3.57 L Hgb 11.2 L Hct 32.1 L MCV 89.9 MCH 31.4 MCHC 34.9 RDW 13.0 Plt Count 226 MPV 9.2 L Immature Gran % (Auto) 0.5 H Neut % (Auto) 84.1 H Lymph % (Auto) 10.6 L [place] % (Auto) 4.5 Eos % (Auto) 0.2 Baso % (Auto) 0.1 Lymph # (Auto) 1.7 [place] # (Auto) 0.7 Eos # (Auto) 0.0 Baso # (Auto) 0.0 Abs Immat Gran (auto) 0.08 H Absolute Neuts (auto) 13.6 H Absolute Nucleated RBC 0.000 Nucleated RBC % (auto) 0.0 Discharge Plan Discharge Anticipated Discharge Date/Time: 04/24/24 07:54 Patient Disposition: Home, Self-Care Discharge Diagnosis: Acute appendicitis Referrals: Sugey Ramos MD [Primary Care Provider] - 1 Week Tony Grider MD [Physician] - 1 Week Discharge Medications: New oxycodone 5 mg tablet 5 mg PO Q6H PRN (Reason: pain (scale score 7-10)) Qty: 15 0RF Rx Instructions: Partial Fill upon patient request. Continued metoprolol succinate 50 mg tablet extended release 24 hr 50 mg PO DAILY buspirone 10 mg tablet 20 mg PO BID escitalopram oxalate 10 mg tablet 10 mg PO DAILY trazodone 50 mg tablet 50 mg PO BEDTIME Discharge Orders: Discharge Order (Routine); Ordered 04/24/24 Ordered By: Tony Grider Diet: Advance to usual diet Activity on Discharge: No heavy lifting Stand Alone Forms: Patient Portal Discharge page Print Language: [place] Activity Restrictions/Additional Instructions: No lifting > 10 pounds for 2 weeks Resume your regular diet No driving for one week Ice to the incision x 24 hours After 24 hours, use warm compress or heating pad on low as needed Take Tylenol Extra-strength 1-2 tabs every 6 hours as needed Oxycodone every 6-8 hours as needed for pain Remove dressing in 3 days Follow up in office in one week (call office at [phone] for appointment). Care Plan Goals: Returned to normal diet and activity Health Concerns: Abdominal pain right lower quadrant Plan of Treatment: Laparoscopic appendectomy performed on 04/23/2024 Assessment: Acute appendicitis status post laparoscopic appendectomy
[2024-04-24 08:00] VITALS: BP 111/69; PULSE 78; RESP 16; TEMP 36.4; O2SAT 95
--- NOTE | 2024-04-24 08:20 | HO.POSTANES ---
Post Anesthesia Evaluation Post Anesthesia Evaluation Date of Service: 04/24/24 Vital Signs: Vital Signs Temp Pulse Resp BP Pulse Ox O2 Del Method 04/24/24 03:52 97.4 F 76 16 104/67 92 Room Air 04/23/24 23:46 98.2 F 80 16 142/80 H 95 Room Air Anesthesia: General Endotracheal-GETA Mental Status: Awake Pain Control: Satisfactory Nausea/Vomiting: None Hydration: Adequate Anesthesia-Related Issues: No Anes. Related Issues
--- NOTE | 2024-04-24 08:45 | MHC.CM.PN ---
pt dcd home self care
[2024-04-24] MEDS: Metoprolol Succinate ER 50 MG TAB.ER.24H PO (09:02)
[2024-04-24] MEDS: Escitalopram Oxalate 10 MG TABLET PO (09:02)
[2024-04-24] MEDS: Nicotine 21 MG PATCH.TD24 TRANSDERMA (09:02)
[2024-04-24] MEDS: busPIRone HCl 10 MG TABLET 20 MG PO (09:02)
== END 2024-04-24 10:34 | disposition home or self-care (01) | DRG 399 ==
LOC: HO.ED 04-23 00:45 → HO.EDOVER 04-23 00:46 → HO.S3 04-23 02:02
PROVIDERS: Physician Assistant; Admitting Provider Surgery; Emergency Provider Emergency Medicine; PCP Internal Medicine; Visit Provider Surgery
PROC: 0DTJ4ZZ Resection of Appendix, Percutaneous Endoscopic Approach (ICD-10-PCS; CPT 44970; principal; 2024-04-23 08:00)
DX: K35.30 Acute appendicitis with localized peritonitis, without perforation or gangrene (principal); F17.210 Nicotine dependence, cigarettes, uncomplicated; Z71.6 Tobacco abuse counseling
CPT/HCPCS: 44970; 36415; 74177; 80053; 80307; 81003; 83690; 83735; 85025; 88304; 99221; 99285; J0131; J1100; J1171; J2003; J2270; J2405; J2543; J2704; J3010; Q9967

== ENCOUNTER → 2024-04-23 00:35 | Outpatient (BNV) | payer MEDICARE, SELFPAY | PROVIDERS: Admitting Provider Surgery; Emergency Provider Emergency Medicine; PCP Internal Medicine; Visit Provider Surgery | DX: K35.30 Acute appendicitis with localized peritonitis, without perforation or gangrene (principal) | CPT/HCPCS: 44970; 99024; 99222 ==

== ENCOUNTER 2024-05-02 08:09 | Outpatient (REF) | payer MEDICARE, SELFPAY ==
[2024-05-02 10:06] LABS: Iron 141 mcg/dL (45-160); Percent Iron Saturation 68 % (15-50); Total Iron Binding Capacity 208 mcg/dL (228-428); Unsaturated Iron Binding 67 ug/dL
[2024-05-02 10:22] LABS: Ferritin 506 ng/mL (20-250)
== END 2024-05-02 08:10 | disposition home or self-care (01) ==
LOC: HO.BBR 08:09
PROVIDERS: PCP Internal Medicine; Visit Provider Internal Medicine Medical Oncology
DX: E83.110 Hereditary hemochromatosis (principal)
CPT/HCPCS: 36415; 82728; 83540

== ENCOUNTER 2024-05-03 11:30 | Outpatient (AMB) | payer MEDICARE, SELFPAY ==
--- NOTE | 2024-05-03 11:31 | MHC.OFFVIS ---
Vital Signs 05/03/24 11:36 Height 5 ft 9 in Weight 146 lb 9.718 oz BMI 21.6 BP 110/70 Blood Pressure Location Lt brachial Position Sitting Intake Visit Reasons: s/p appendectomy Intake Note: Patient is seen in office for post op assessment post laparoscopic appendectomy. Pt c/o: denies any concerns at the time of visit surgery:04/23/24 Professional Engineer Required: No Accompanied by: Self / Same As Patient Allergies No Known Allergies Allergy (Verified 05/03/24 11:35) HPI Comments Details: 63-year-old male patient returning 1 week following laparoscopic appendectomy for acute appendicitis. He feels well and denies any significant abdominal pain. He has been eating well in his bowels are normal. He denies fever or chills. [facility] Medical History Acute appendicitis History of ETOH abuse Hereditary hemochromatosis Nicotine dependence, cigarettes, uncomplicated Surgical History History of laparoscopic appendectomy (04/23/24) History of lumbar surgery History of vasectomy History of cervical spinal surgery History of left knee surgery Family History Father Colon cancer Social History Household Members: Spouse Housing: House Do you presently have visiting nurse or other home services: No Alcohol intake: current Alcohol intake frequency: 3 or more drinks per day Alcohol type: hard liquor Patient Tobacco Use Status: Current everyday Tobacco user Tobacco use type: Cigarette Cigarette Packs Per Day: 0.5 Cigarettes Per Day: 10.0 Years Smoked: 40 Second Hand Smoke Exposure: No Substance Use Type: Marijuana service: No Current occupational status: disabled Physical Exam Vital Signs: Last Vital Signs BP 110/70 05/03/24 11:36 BMI result Body Mass Index 21.6 Const General: no acute distress Nutritional Appearance: well nourished Orientation/consciousness: patient oriented x3 Limitations: ambulation with cane Resp Effort & Inspection: normal respiratory effort GI Other: Trocar incisions are clean, dry, and intact. Tegaderm dressings were removed today and Steri-Strips were found to be intact. No hernia with Valsalva maneuvers. Skin Other: Warm, dry, no rashes Neuro General: patient oriented x3 Assessment & Plan Assessment & Plan (1) Acute appendicitis: Code(s): K35.80 - Unspecified acute appendicitis Category: Medical Qualifiers: Acute appendicitis type: with localized peritonitis Appendicitis abscess presence: without abscess Appendicitis gangrene presence: without gangrene Appendicitis perforation presence: without perforation Qualified Code(s): K35.30 - Acute appendicitis with localized peritonitis, without perforation or gangrene Plan 63-year-old male patient status post laparoscopic appendectomy for acute appendicitis. He tolerated the procedure well and his wounds are healing nicely. Should continue to avoid lifting greater than 10 lb for another week after which he may resume normal activity. She should follow up as needed. Medications: Discontinued oxycodone Partial Fill upon patient request. Discontinued Reason: Patient Completed Course 5 mg PO Q6H PRN 15 tabs 0RF pain (scale score 7-10) Coding Level of Care Code Global (42747) Diagnoses Acute appendicitis with localized peritonitis, without perforation, abscess, or gangrene K35.30 Acute appendicitis type: with localized peritonitis Appendicitis abscess presence: without abscess Appendicitis gangrene presence: without gangrene Appendicitis perforation presence: without perforation
[2024-05-03 11:36] VITALS: BP 110/70; BMI 21.6
== END 2024-05-03 12:06 | disposition home or self-care (01) ==
PROVIDERS: PCP Internal Medicine; Visit Provider Surgery
DX: K35.30 Acute appendicitis with localized peritonitis, without perforation or gangrene (principal)
CPT/HCPCS: 99024

== ENCOUNTER → 2024-05-03 11:30 | Outpatient (BNVA) | payer MEDICARE, SELFPAY | PROVIDERS: PCP Internal Medicine; Visit Provider Surgery | DX: K35.30 Acute appendicitis with localized peritonitis, without perforation or gangrene (principal) | CPT/HCPCS: 99212 ==

== ENCOUNTER 2024-06-01 08:07 | Outpatient (REF) | payer MEDICARE, SELFPAY | END 2024-06-01 08:08 | disposition home or self-care (01) | LOC: HO.BBR 08:07 | PROVIDERS: PCP Internal Medicine; Visit Provider Internal Medicine Medical Oncology | DX: Z13.89 Encounter for screening for other disorder (principal) ==

== ENCOUNTER 2024-07-05 08:08 | Outpatient (REF) | payer MEDICARE, SELFPAY ==
--- OUTSIDE RECORDS SUMMARY | 2024-07-05 08:12 | XMS_ITS | Clinical Summary ---
Author Organization [facility] Address [address] [place] [address] Phone Care Team Providers Care Board Of Directors Name Role Phone Sugey Ramos MD Primary Care Provider [phone] Allergies No known active allergies Medications budesonide-glyc opyr-formoterol (BREZTRI AEROSPHERE) 160-9-4.8 mcg/actuation HFA aerosol inhaler inhaler Inhale into the lungs Active busPIRone (BUSPAR) 15 mg tablet Take 1 Tablet by mouth 3 times daily Active escitalopram (LEXAPRO) 10 mg tablet Take 1 Tablet by mouth daily Active metoprolol succinate (TOPROL-XL) 50 mg 24 hr tablet Take 1 Tablet by mouth daily Active naltrexone (DEPADE) 50 mg tablet Take 1 Tablet by mouth daily Active polyethylene glycol (Golytely) 236-22.74-6.74 -5.86 gram solution Take 4L by mouth once for one dose. May substitue any PEG. Starting at 6PM the night before your procedure drink 1 8oz glasses at your own pace until you complete half of the gallon. Finish 2nd half of the gallon 5 hours before your procedure. 4000 mL 4 Active bisacodyL (DULCOLAX) 5 mg EC tablet Take 2 tablets by mouth right before beginning bowel prep. See instructions provided by the office 2 tablet 4 Active traZODone (DESYREL) 50 mg tablet Take 0.5 tablets (25 mg total) by mouth at bedtime. at bedtime. 4 Active ibuprofen (ADVIL,MOTRIN) 200 mg tablet Take 2 tablets (400 mg total) by mouth every 6 hours as needed. Active albuterol HFA (PROAIR HFA ; PROVENTIL HFA ; VENTOLIN HFA) 90 mcg/actuation inhaler Inhale 2 puffs by mouth every 6 hours as needed. 9 Active Active Problems Patient Care Coordination No te Formatting of this note migh t be different from the original. The patient will go to the ED at [facility]. I asked him to come to [facility], but suggest that he lives close by to [place]. No additional problems on file Encounters Date Type Department Care Team Description 04/22/2024 Telephone Gastroenterology - [place] [address] [facility] [address] [facility] [address] [place] [id number] Danielle Lozada MD Provider Call Back 04/19/2024 9:04 AM EST Anesthesia Event [facility] Endoscopy [address] [place] [phone] Roque Crowell MD 04/19/2024 8:23 AM EST - 04/19/2024 11:59 PM EST Hospital Encounter [facility] Endoscopy [address] [place] [phone] Danielle Lozada MD Saliga, Jesse L, MD Hx of colonic polyps Discharge Disposition: Home or Self Care from Last 3 Months Surgical History Surgery Date Site/Laterality Comments LAMINECTOMY CERVICAL SPINE SURGERY 05/18/2011 - 05/17/2012 CYST REMOVED Medical History Medical History Date Comments COPD (chronic obstructive pulmonary disease) (CM S/HCC) Depression Hyperlipidemia Cerebral atrophy (CMS/HCC) Hypertension Colon polyp Hemochromatosis Family History Medical History Relation Name Comments Colon cancer Father Relation Name Status Comments Father Social History Tobacco Use Types Packs/Day Years Used Date Smoking Tobacco: Every Day Cigarettes Smokeless Tobacco: Never Tobacco Cessation:Ready to Q uit: Not Asked; Counseling Given: Not Answered Alcohol Use Standard Drinks/Week Comments Not Currently 0 (1 standard drink = 0.6 oz pur e alcohol) Interpersonal Safety Answer Date Record ed Physical Abuse 04/19/2024 Verbal Abuse 04/19/2024 Sex and Gender Information Value Date Recorded Sex Assigned at Male 04/19/2024 8:17 AM EST Legal Sex Male 7:41 AM EST Gender Identity Male 04/19/2024 8:17 AM EST Sexual Orientation Not on file Obstetrics History Last Filed Vital Signs Vital Sign Reading Time Taken Comments Blood Pressure 138/90 04/19/2024 9:44 AM EST Pulse 65 04/19/2024 9:44 AM EST Temperature 36.3 ??C (97.3 ??F) 04/19/2024 8:58 AM ES T Respiratory Rate 16 04/19/2024 9:44 AM EST Oxygen Saturation 97% 04/19/2024 9:44 AM EST Inhaled Oxygen Concentration - - Weight 68 kg (150 lb) 04/11/2024 1:00 PM EST Height 175.3 cm (5' 9 ) 04/11/2024 1:00 PM EST Body Mass Index 22.15 04/11/2024 1:00 PM EST Plan of Treatment Health Maintenance Due Date Last Done Comments Zoster Vaccines (1 of 2) 2012 Hepatitis B Vaccines (3 of 3 - 19+ 3-dose series) 10/21/2016 08/26/2016, 03/20/2015 Pneumococcal Vaccine: 50+ Years (2 of 2 - PCV) 10/02/2018 10/02/2017 Pneumococcal Vaccine: Pediatrics (0 to 5 Years) and At-Risk Patients (6 to 64 Years) (2 of 2 - PCV) 10/02/2018 10/02/2017 Cholesterol Screening (Lipid Panel) 04/20/2022 Depression Screening 04/20/2022 HIV Screening 04/20/2022 Hepatitis C Screening 04/20/2022 Medicare Annual Wellness Visit 04/20/2022 Social Influencers of Health Screening 04/20/2022 RSV Immunization Patients 60 + Years Old (1 - Risk 60-74 years 1-dose series) 2022 COVID-19 Vaccine (3 - 2023-2 5 season) 2024 10/02/2020, 09/04/2020 Influenza Vaccine (#1) 2024 , 03/20/2015, 02/22/2008 DTaP,Tdap,and Td Vaccines (2 - Td or Tdap) 08/26/2026 08/26/2016 Colorectal Cancer Screening: Colonoscopy 04/19/2034 04/19/2024 Hepatitis A Vaccines Completed 08/26/2016, 03/20/2015 HIB Vaccines Aged Out No longer eligi ble based on patient's age to complete this topic HPV Vaccines Aged Out No longer eligi ble based on patient's age to complete this topic IPV Vaccines Aged Out No longer eligi ble based on patient's age to complete this topic MMR Vaccines Aged Out No longer eligi ble based on patient's age to complete this topic Meningococcal ACWY Vaccine Aged Out N o longer eligible based on patient's age to complete this topic Meningococcal B Vacine Aged Out No lo nger eligible based on patient's age to complete this topic RSV Immunization Patients Under 20 months Aged Out No longer eligible b ased on patient's age to complete this topic Varicella Vaccines Aged Out No longer eligible based on patient's age to complete this topic Procedures Procedure Name Priority Date/Time Associated Diagnosis Comments COLONOSCOPY Routine 04/19/2024 9:22 AM EST Hx of colonic polyps from Last 3 Months Results * COLONOSCOPY Anesthesia - MAC; [facility] ENDOSCOPY (04/19/2024 9:22 AM EST) Anatomical Region Laterality Modality Endoscopy 04/19/2024 9:05 AM EST Impressions 04/19/2024 9:26 AM EST - Diverticulosis in the entire examined colon. ? - The distal rectum and anal verge are normal on ? retroflexion view. ? - No specimens collected. Recommendation: ?- Discharge patient to home. ? - Repeat colonoscopy in 5 years for surveillance. Narrative 04/19/2024 9:26 AM EST [facility] GI Patient Name: Tony Archibald Procedure Date: 04/19/2024 9:05 AM Date of : 1960 Age: 63 Gender: Male Note Status: Finalized Attending MD: Danielle Lozada MD, Procedure Date No Time: 04/19/2024 Procedure: ? Colonoscopy Indications: ? High risk colon cancer surveillance: Personal history ? of colonic polyps Providers: ? Danielle Lozada MD Referring MD: ?Danielle Lozada MD Medicines: ? Monitored Anesthesia Care Complications: ? No immediate complications. Estimated Blood Loss: ? Estimated blood loss: none. Procedure: ? Pre-Anesthesia Assessment: ? - Prior to the procedure, a History and Physical was ? performed, and patient medications and allergies were ? reviewed. The patient is competent. The risks and ? benefits of the procedure and the sedation options and ? risks were discussed with the patient. All questions ? were answered and informed consent was obtained. ? Patient identification and proposed procedure were ? verified by the physician, the nurse, the physicians assistant ? and the diploma pharmacy technician in the pre-procedure area in the ? procedure room. Mental Status Examination: alert and ? oriented. Airway Examination: normal oropharyngeal ? airway and neck mobility. Respiratory Examination: ? clear to auscultation. CV Examination: normal. ? Prophylactic Antibiotics: The patient does not require ? prophylactic antibiotics. Prior Anticoagulants: The ? patient has taken no anticoagulant or antiplatelet ? agents. ASA Grade Assessment: II - A patient with mild ? systemic disease. After reviewing the risks and ? benefits, the patient was deemed in satisfactory ? condition to undergo the procedure. The anesthesia ? plan was to use monitored anesthesia care (MAC). ? Immediately prior to administration of medications, ? the patient was re-assessed for adequacy to receive ? sedatives. The heart rate, respiratory rate, oxygen ? saturations, blood pressure, adequacy of pulmonary ? ventilation, and response to care were monitored ? throughout the procedure. The physical status of the ? patient was re-assessed after the procedure. ? After I obtained informed consent, the scope was ? passed under direct vision. Throughout the procedure, ? the patient's blood pressure, pulse, and oxygen ? saturations were monitored continuously. The ? Colonoscope was introduced through the anus and ? advanced to the cecum, identified by appendiceal ? orifice and ileocecal valve. The colonoscopy was ? performed without difficulty. The patient tolerated ? the procedure well. The quality of the bowel ? preparation was good. Findings: ?The perianal and digital rectal examinations were ? normal. ? Many small and large-mouthed diverticula were found in ? the entire colon. ? The retroflexed view of the distal rectum and anal ? verge was normal and showed no anal or rectal ? abnormalities. Procedure Code(s): ? --- Professional --- ? G0105, Colorectal cancer screening; colonoscopy on ? individual at high risk Diagnosis Code(s): ? --- Professional --- ? Z86.010, Personal history of colonic polyps CPT copyright 2020 [employer]. All rights reserved. The codes documented in this report are preliminary and upon stain sprayer review may be revised to meet current compliance requirements. Danielle Lozada MD 04/19/2024 9:26:32 AM This report has been signed electronically.Danielle Lozada MD Number of Addenda: 0 Note Initiated On: 04/19/2024 9:05 AM Scope Withdrawal Time: 0 hours 8 minutes 13 seconds Scope In: 9:10:44 AM Scope Out: 9:23:31 AM ? Endoscopy Department at [facility] - [address] [place] [address], ? [place] [address] Procedure Note Danielle Lozada MD - 04/19/2024 [facility] GI Patient Name: Tony Archibald Procedure Date: 04/19/2024 9:05 AM Date of : 1960 Age: 63 Gender: Male Note Status: Finalized Attending MD: Danielle Lozada MD, Procedure Date No Time: 04/19/2024 Procedure: Colonoscopy Indications: High risk colon cancer surveillance: Personalhistory of colonic polyps Providers: Danielle Lozada MD Referring MD: Danielle Lozada MD Medicines: Monitored Anesthesia Care Complications: No immediate complications. Estimated Blood Loss: Estimated blood loss: none. Procedure: Pre-Anesthesia Assessment: - Prior to the procedure, a History and Physicalwas performed, and patient medications and allergieswere reviewed. The patient is competent. The risks and benefits of the procedure and the sedation optionsand risks were discussed with the patient. Allquestions were answered and informed consent was obtained. Patient identification and proposed procedure were verified by the physician, the nurse, theanesthetist and the diploma pharmacy technician in the pre-procedure area in the procedure room. Mental Status Examination: alertand oriented. Airway Examination: normal oropharyngeal airway and neck mobility. Respiratory Examination: clear to auscultation. CV Examination: normal. Prophylactic Antibiotics: The patient does notrequire prophylactic antibiotics. Prior Anticoagulants: The patient has taken no anticoagulant or antiplatelet agents. ASA Grade Assessment: II - A patient withmild systemic disease. After reviewing the risks and benefits, the patient was deemed in satisfactory condition to undergo the procedure. The anesthesia plan was to use monitored anesthesia care (MAC). Immediately prior to administration of medications, the patient was re-assessed for adequacy to receive sedatives. The heart rate, respiratory rate, oxygen saturations, blood pressure, adequacy of pulmonary ventilation, and response to care were monitored throughout the procedure. The physical status ofthe patient was re-assessed after the procedure. After I obtained informed consent, the scope was passed under direct vision. Throughout theprocedure, the patient's blood pressure, pulse, and oxygen saturations were monitored continuously. The Colonoscope was introduced through the anus and advanced to the cecum, identified by appendiceal orifice and ileocecal valve. The colonoscopy was performed without difficulty. The patient tolerated the procedure well. The quality of the bowel preparation was good. Findings: The perianal and digital rectal examinations were normal. Many small and large-mouthed diverticula were foundin the entire colon. The retroflexed view of the distal rectum and anal verge was normal and showed no anal or rectal abnormalities. Procedure Code(s): --- Professional --- G0105, Colorectal cancer screening; colonoscopy on individual at high risk Diagnosis Code(s): --- Professional --- Z86.010, Personal history of colonic polyps CPT copyright 2020 [employer]. All rights reserved. The codes documented in this report are preliminary and upon stain sprayer reviewmay be revised to meet current compliance requirements. Danielle Lozada MD 04/19/2024 9:26:32 AM This report has been signed electronically.Danielle Lozada MD Number of Addenda: 0 Note Initiated On: 04/19/2024 9:05 AM Scope Withdrawal Time: 0 hours 8 minutes 13 seconds Scope In: 9:10:44 AM Scope Out: 9:23:31 AM Endoscopy Department at [facility] - [address] [place] [phone] IMPRESSION: - Diverticulosis in the entire examined colon. - The distal rectum and anal verge are normal on retroflexion view. - No specimens collected. Recommendation: - Discharge patient to home. - Repeat colonoscopy in 5 years for surveillance. Danielle Lozada MD GI~PROCEDURE ORDERABLES Fin al Result from Last 3 Months Insurance [employer] MEDICARE Care Teams Board Of Directors Relationship Specialty Start Date End Date Sugey Ramos MD [address] [place] [address] [place] [address] PCP - General Internal Medicine 04/19/24
[2024-07-05 09:33] LABS: Iron 186 mcg/dL (45-160); Percent Iron Saturation 81 % (15-50); Total Iron Binding Capacity 230 mcg/dL (228-428); Unsaturated Iron Binding 44 ug/dL
[2024-07-05 09:38] LABS: Ferritin 246 ng/mL (20-250)
== END 2024-07-05 08:09 | disposition home or self-care (01) ==
LOC: HO.BBR 08:08
PROVIDERS: PCP Internal Medicine; Visit Provider Internal Medicine Medical Oncology
DX: E83.110 Hereditary hemochromatosis (principal)
CPT/HCPCS: 36415; 82728; 83540

== ENCOUNTER 2024-08-04 08:08 | Outpatient (REF) | payer MEDICARE, SELFPAY ==
[2024-08-04 09:14] LABS: Iron 196 mcg/dL (45-160); Percent Iron Saturation 82 % (15-50); Total Iron Binding Capacity 240 mcg/dL (228-428); Unsaturated Iron Binding 44 ug/dL
[2024-08-04 09:31] LABS: Ferritin 223 ng/mL (20-250)
== END 2024-08-04 08:09 | disposition home or self-care (01) ==
LOC: HO.BBR 08:08
PROVIDERS: PCP Internal Medicine; Visit Provider Internal Medicine Medical Oncology
DX: E83.110 Hereditary hemochromatosis (principal)
CPT/HCPCS: 36415; 82728; 83540

== ENCOUNTER 2024-09-06 08:10 | Outpatient (REF) | payer MEDICARE, SELFPAY ==
--- NOTE | ~2024-09-06 | XR_ITS ---
EXAMINATION: XR ANKLE, RIGHT CLINICAL INFORMATION: PAIN COMPARISON: February 10, 2012. TECHNIQUE: AP, lateral, and mortise views of the right ankle. FINDINGS: Heterotopic bone formation/calcifications with a bubbly morphology pattern in the soft tissues above the calcaneus and posterior to the joint capsule. Sclerosis at the articular surface involving the tibial tarsal and fibula tarsal calcaneus with joint space narrowing. No acute cortical disruption or malalignment. 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 Electronically signed by: Didier Asencio MD 09/07/2024 08:00 AM EDT
--- OUTSIDE RECORDS SUMMARY | 2024-09-06 08:22 | XMS_ITS | Clinical Summary ---
Author Organization [facility] Address [address] [place] [address] Phone Care Team Providers Care Mobile Engineer Name Role Phone Sugey Ramos MD Primary Care Provider [phone] Allergies No known active allergies Medications budesonide-glyc [...] patient will go to the ED at [facility]. I asked him to come to [facility], but suggest that he lives close by to [place]. No additional problems on file Surgical History Surgery Date Site/Laterality Comments LAMINECTOMY CERVICAL SPINE SURGERY 05/18/2011 - 05/17/2012 CYST REMOVED Medical History Medical History Date Comments COPD (chronic obstructive pulmonary disease) (CM S/HCC V24, CMS/HCC V28) Depression Hyperlipidemia Cerebral atrophy ([facility]/HCC V24) Hypertension Colon polyp Hemochromatosis Family History Medical [...] Influencers of Health Screening 04/20/2022 RSV Immunization Adult Patients (1 - Risk 60-74 years 1-dose series) 2022 COVID-19 Vaccine (3 - 2023-2 5 season) 2024 10/02/2020, 09/04/2020 Influenza Vaccine (Season Ended) 2025 04/09/2020, 03/20/2015, 02/22/2008 DTaP,Tdap,and Td Vaccines (2 - Td or Tdap) 08/26/2026 08/26/2016 Colorectal Cancer Screening: Colonoscopy 04/19/2034 04/19/2024 Hepatitis A Vaccines Aged Out 08/26/2016, 03/20/2015 No longer eligible based on patient's age to complete this topic HIB Vaccines Aged Out No longer eligi [...] age to complete this topic Meningococcal B Vaccine Aged Out No l onger eligible based on patient's age to complete [...] of colonic polyps from Last 3 Months or Most Recently Relevant to Health Maintenance Results * COLONOSCOPY Anesthesia - MAC; [facility] ENDOSCOPY (04/19/2024 9:22 AM EST) Anatomical Region [...] for surveillance. Narrative 04/19/2024 9:26 AM EST [facility] GI Patient Name: Tony Archibald Procedure [...] verified by the physician, the nurse, the microelectronics assembler ? and the wet process technician in the pre-procedure area in the [...] history of colonic polyps CPT copyright 2020 [employer]. All rights reserved. The codes documented in this report are preliminary and upon tarper review may be revised to meet current compliance requirements. Danielle Lozada MD 04/19/2024 9:26:32 AM This report has been signed electronically.Danielle Lozada MD Number of Addenda: 0 Note Initiated On: 04/19/2024 9:05 AM Scope Withdrawal Time: 0 hours 8 minutes 13 seconds Scope In: 9:10:44 AM Scope Out: 9:23:31 AM ? Endoscopy Department at [facility] - [address] [place] [address], ? [place] [address] Procedure Note Danielle Lozada MD - 04/19/2024 [facility] GI Patient Name: Tony Archibald Procedure [...] the physician, the nurse, theanesthetist and the wet process technician in the pre-procedure area in the [...] history of colonic polyps CPT copyright 2020 [employer]. All rights reserved. The codes documented in this report are preliminary and upon tarper reviewmay be revised to meet current compliance requirements. Danielle Lozada MD 04/19/2024 9:26:32 AM This report has been signed electronically.Danielle Lozada MD Number of Addenda: 0 Note Initiated On: 04/19/2024 9:05 AM Scope Withdrawal Time: 0 hours 8 minutes 13 seconds Scope In: 9:10:44 AM Scope Out: 9:23:31 AM Endoscopy Department at [facility] - [address] [place] [phone] IMPRESSION: - Diverticulosis in the entire examined colon. - The distal rectum and anal verge are normal on retroflexion view. - No specimens collected. Recommendation: - Discharge patient to home. - Repeat colonoscopy in 5 years for surveillance. us Danielle Lozada MD GI~PROCEDURE ORDERABLES Fin al Result from Last 3 Months or Most Recently Relevant to Health Maintenance Insurance [employer] MED[employer] Care Teams Mobile Engineer Relationship Specialty Start Date End Date Sugey Ramos MD [address] [place] [address] [place] [address] PCP - General Internal Medicine 04/19/24
[2024-09-06 10:01] LABS: Iron 213 mcg/dL (45-160); Percent Iron Saturation 89 % (15-50); Total Iron Binding Capacity 238 mcg/dL (228-428); Unsaturated Iron Binding < 25 ug/dL
[2024-09-06 10:10] LABS: Ferritin 156 ng/mL (20-250)
== END 2024-09-06 08:11 | disposition home or self-care (01) ==
LOC: HO.BBR 08:10
PROVIDERS: PCP Internal Medicine; Visit Provider Internal Medicine Medical Oncology
DX: E83.110 Hereditary hemochromatosis (principal); Z13.89 Encounter for screening for other disorder
CPT/HCPCS: 36415; 73610; 82728; 83540

== ENCOUNTER → 2024-09-06 08:44 | Outpatient (BNV) | payer MEDICARE, SELFPAY | PROVIDERS: PCP Internal Medicine; Visit Provider Radiology Diagnostic Radiology | DX: D16.21 Benign neoplasm of long bones of right lower limb (principal) | CPT/HCPCS: 73610 ==

== ENCOUNTER 2024-09-29 08:11 | Outpatient (REF) | payer MEDICARE, SELFPAY ==
--- OUTSIDE RECORDS SUMMARY | 2024-09-29 08:15 | XMS_ITS | Clinical Summary ---
Author Organization [facility] Address [address] [place] [address] Phone Care Team Providers Care It Programmer Analyst Name Role Phone Sugey Ramos MD Primary Care Provider [phone] Allergies No known active allergies Medications budesonide-glyc [...] patient will go to the ED at [facility]. I asked him to come to [facility], but suggest that he lives close by to [place]. No additional problems on file Surgical History Surgery Date Site/Laterality Comments LAMINECTOMY CERVICAL SPINE SURGERY 05/18/2011 - 05/17/2012 CYST REMOVED Medical History Medical History Date Comments COPD (chronic obstructive pulmonary disease) (CM S/HCC V24, CMS/HCC V28) Depression Hyperlipidemia Cerebral atrophy ([facility]/HCC V24) Hypertension Colon polyp Hemochromatosis Family History [...] Maintenance Results * COLONOSCOPY Anesthesia - MAC; [facility] ENDOSCOPY (04/19/2024 9:22 AM EST) Anatomical Region [...] for surveillance. Narrative 04/19/2024 9:[address] [facility] GI Patient Name: Tony Archibald Procedure Date: [...] verified by the physician, the nurse, the principal automation engineer ? and the electrical mechanical technician in the pre-procedure area in the [...] history of colonic polyps CPT copyright 2020 [employer]. All rights reserved. The codes documented in this report are preliminary and upon software engineering manager review may be revised to meet current compliance requirements. Danielle Lozada MD 04/19/2024 9:26:32 AM This report has been signed electronically.Danielle Lozada MD Number of Addenda: 0 Note Initiated On: 04/19/2024 9:05 AM Scope Withdrawal Time: 0 hours 8 minutes 13 seconds Scope In: 9:10:44 AM Scope Out: 9:23:31 AM ? Endoscopy Department at [facility] - [address] [place] [address], ? [place] [address] Procedure Note Danielle Lozada MD - 04/19/2024 [facility] GI Patient Name: Tony Archibald Procedure Date: [...] the physician, the nurse, theanesthetist and the electrical mechanical technician in the pre-procedure area in the [...] history of colonic polyps CPT copyright 2020 [employer]. All rights reserved. The codes documented in this report are preliminary and upon software engineering manager reviewmay be revised to meet current compliance requirements. Danielle Lozada MD 04/19/2024 9:26:32 AM This report has been signed electronically.Danielle Lozada MD Number of Addenda: 0 Note Initiated On: 04/19/2024 9:05 AM Scope Withdrawal Time: 0 hours 8 minutes 13 seconds Scope In: 9:10:44 AM Scope Out: 9:23:31 AM Endoscopy Department at [facility] - [address] [place] [phone] IMPRESSION: - Diverticulosis in the entire examined [...] Maintenance Insurance [employer] MED[employer]ARE Care Teams It Programmer Analyst Relationship Specialty Start Date End Date Sugey Ramos MD [address] [place] [address] [place] [address] PCP - General Internal Medicine 04/19/24
[2024-09-29 09:37] LABS: Iron 231 mcg/dL (45-160); Percent Iron Saturation 90 % (15-50); Total Iron Binding Capacity 256 mcg/dL (228-428); Unsaturated Iron Binding < 25 ug/dL
[2024-09-29 10:01] LABS: Ferritin 180 ng/mL (20-250)
== END 2024-09-29 08:12 | disposition home or self-care (01) ==
LOC: HO.BBR 08:11
PROVIDERS: PCP Internal Medicine; Visit Provider Internal Medicine Medical Oncology
DX: E83.110 Hereditary hemochromatosis (principal)
CPT/HCPCS: 36415; 82728; 83540

== ENCOUNTER 2024-11-03 08:01 | Outpatient (REF) | payer MEDICARE, SELFPAY ==
--- OUTSIDE RECORDS SUMMARY | 2024-11-03 08:10 | XMS_ITS | Clinical Summary ---
Author Organization [facility] Address [address] [place] [address] Phone Care Team Providers Care Sr. Consultant Name Role Phone Sugey Ramos MD Primary Care Provider [phone] Allergies No known active allergies Medications budesonide-glyc [...] patient will go to the ED at [facility]. I asked him to come to [facility], but suggest that he lives close by to [place]. No additional problems on file Surgical History Surgery Date Site/Laterality Comments LAMINECTOMY CERVICAL SPINE SURGERY 05/18/2011 - 05/17/2012 CYST REMOVED Medical History Medical History Date Comments COPD (chronic obstructive pulmonary disease) (CM S/HCC V24, CMS/HCC V28) Depression Hyperlipidemia Cerebral atrophy ([facility]/HCC V24) Hypertension Colon polyp Hemochromatosis Family History [...] 67 04/19/2024 9:44 AM EST Temperature 36.3 C (97.3 F) 04/19/2024 8:58 AM EST Respiratory Rate 16 04/19/2024 9:44 AM EST [...] Results * COLONOSCOPY Anesthesia - MAC; [facility] ENDOSCOPY (04/19/2024 9:22 AM EST) Anatomical Region Laterality Modality Endoscopy 04/19/2024 9:05 AM EST Impressions 04/19/2024 9:26 AM EST - Diverticulosis in the entire examined colon. - The distal rectum and anal verge are normal on retroflexion view. - No specimens collected. Recommendation: - Discharge patient to home. - Repeat colonoscopy in 5 years for surveillance. Narrative 04/19/2024 9:26 AM EST [facility] GI Patient Name: Tony Archibald Procedure Date: 04/19/2024 9:05 AM Date of : 1960 Age: 63 Gender: Male Note Status: Finalized Attending MD: Danielle Lozada MD, Procedure Date No Time: 04/19/2024 Procedure: Colonoscopy Indications: High risk colon cancer surveillance: Personal history of colonic polyps Providers: Danielle Lozada MD Referring MD: Danielle Lozada MD Medicines: Monitored Anesthesia Care Complications: No immediate complications. Estimated Blood Loss: Estimated blood loss: none. Procedure: Pre-Anesthesia Assessment: - Prior to the procedure, a History and Physical was performed, and patient medications and allergies were reviewed. The patient is competent. The risks and benefits of the procedure and the sedation options and risks were discussed with the patient. All questions were answered and informed consent was obtained. Patient identification and proposed procedure were verified by the physician, the nurse, the count room clerk and the truck technician in the pre-procedure area in the procedure room. Mental Status Examination: alert and oriented. Airway Examination: normal oropharyngeal airway and neck mobility. Respiratory Examination: clear to auscultation. CV Examination: normal. Prophylactic Antibiotics: The patient does not require prophylactic antibiotics. Prior Anticoagulants: The patient has taken no anticoagulant or antiplatelet agents. ASA Grade Assessment: II - A patient with mild systemic disease. After reviewing the risks and [...] monitored throughout the procedure. The physical status of the patient was re-assessed after the procedure. After I obtained informed consent, the scope was passed under direct vision. Throughout the procedure, the patient's blood pressure, pulse, and oxygen [...] normal. Many small and large-mouthed diverticula were found in the entire colon. The retroflexed view of the distal rectum and anal verge was normal and showed no anal or rectal abnormalities. Procedure Code(s): --- Professional --- G0105, Colorectal cancer screening; colonoscopy on individual at high risk Diagnosis Code(s): --- Professional --- Z86.010, Personal history of colonic polyps CPT copyright 2020 [employer]. All rights reserved. The codes documented in this report are preliminary and upon label rewinder review may be revised to meet current compliance requirements. Danielle Lozada MD 04/19/2024 9:26:32 AM This report has been signed electronically.Danielle Lozada MD Number of Addenda: 0 Note Initiated On: 04/19/2024 9:05 AM Scope Withdrawal Time: 0 hours 8 minutes 13 seconds Scope In: 9:10:44 AM Scope Out: 9:23:31 AM Endoscopy Department at [facility] - [address] [place] [phone] Procedure Note Danielle Lozada MD - 04/19/2024 [facility] GI Patient Name: Tony Archibald Procedure Date: [...] the physician, the nurse, theanesthetist and the truck technician in the pre-procedure area in the [...] history of colonic polyps CPT copyright 2020 [employer]. All rights reserved. The codes documented in this report are preliminary and upon label rewinder reviewmay be revised to meet current compliance requirements. Danielle Lozada MD 04/19/2024 9:26:32 AM This report has been signed electronically.Danielle Lozada MD Number of Addenda: 0 Note Initiated On: 04/19/2024 9:05 AM Scope Withdrawal Time: 0 hours 8 minutes 13 seconds Scope In: 9:10:44 AM Scope Out: 9:23:31 AM Endoscopy Department at [facility] - [address] [place] [phone] IMPRESSION: - Diverticulosis in the entire examined colon. - The distal rectum and anal verge are normal on retroflexion view. - No specimens collected. Recommendation: - Discharge patient to home. - Repeat colonoscopy in 5 years for surveillance. Danielle Lozada MD GI~PROCEDURE ORDERABLES Fin al Result from Last 3 Months or Most Recently Relevant to Health Maintenance Insurance [employer] MEDICARE Care Teams Sr. Consultant Relationship Specialty Start Date End Date Sugey Ramos MD [address] [place] [address] [place] [address] PCP - General Internal Medicine 04/19/24
[2024-11-03 09:55] LABS: Iron 172 mcg/dL (45-160); Percent Iron Saturation 74 % (15-50); Total Iron Binding Capacity 234 mcg/dL (228-428); Unsaturated Iron Binding 62 ug/dL
[2024-11-03 10:14] LABS: Ferritin 109 ng/mL (20-250)
== END 2024-11-03 08:02 | disposition home or self-care (01) ==
LOC: HO.BBR 08:01
PROVIDERS: PCP Internal Medicine; Visit Provider Internal Medicine Medical Oncology
DX: E83.110 Hereditary hemochromatosis (principal)
CPT/HCPCS: 36415; 82728; 83540

== ENCOUNTER 2024-11-11 08:24 | Outpatient (REF) | payer MEDICARE, SELFPAY ==
--- OUTSIDE RECORDS SUMMARY | 2024-11-11 08:35 | XMS_ITS | Clinical Summary ---
Author Organization [facility] Address [address] [place] [address] Phone Care Team Providers Care Senior It Business Analyst Name Role Phone Sugey Ramos MD Primary Care Provider [phone] Allergies No known active allergies Medications budesonide-glyc [...] patient will go to the ED at [facility]. I asked him to come to [facility], but suggest that he lives close by to [place]. No additional problems on file Surgical History Surgery Date Site/Laterality Comments LAMINECTOMY CERVICAL SPINE SURGERY 05/18/2011 - 05/17/2012 CYST REMOVED Medical History Medical History Date Comments COPD (chronic obstructive pulmonary disease) (CM S/HCC V24, CMS/HCC V28) Depression Hyperlipidemia Cerebral atrophy ([facility]/HCC V24) Hypertension Colon polyp Hemochromatosis Family [...] Maintenance Results * COLONOSCOPY Anesthesia - MAC; [facility] ENDOSCOPY (04/19/2024 9:22 AM EST) Anatomical Region Laterality Modality Endoscopy 04/19/2024 9:05 AM EST Impressions 04/19/2024 9:26 AM EST - Diverticulosis in the entire examined colon. - The distal rectum and anal verge are normal on retroflexion view. - No specimens collected. Recommendation: - Discharge patient to home. - Repeat colonoscopy in 5 years for surveillance. Narrative 04/19/2024 9:26 AM EST [facility] GI Patient Name: Tony Archibald Procedure [...] verified by the physician, the nurse, the production planner and the patient service technician pst in the pre-procedure area in the procedure [...] history of colonic polyps CPT copyright 2020 [employer]. All rights reserved. The codes documented in this report are preliminary and upon burlap worker review may be revised to meet current compliance requirements. Danielle Lozada MD 04/19/2024 9:26:32 AM This report has been signed electronically.Danielle Lozada MD Number of Addenda: 0 Note Initiated On: 04/19/2024 9:05 AM Scope Withdrawal Time: 0 hours 8 minutes 13 seconds Scope In: 9:10:44 AM Scope Out: 9:23:31 AM Endoscopy Department at [facility] - [address] [place] [phone] Procedure Note Danielle Lozada MD - 04/19/2024 [facility] GI Patient Name: Tony Archibald Procedure [...] the physician, the nurse, theanesthetist and the patient service technician pst in the pre-procedure area in the procedure [...] history of colonic polyps CPT copyright 2020 [employer]. All rights reserved. The codes documented in this report are preliminary and upon burlap worker reviewmay be revised to meet current compliance requirements. Danielle Lozada MD 04/19/2024 9:26:32 AM This report has been signed electronically.Danielle Lozada MD Number of Addenda: 0 Note Initiated On: 04/19/2024 9:05 AM Scope Withdrawal Time: 0 hours 8 minutes 13 seconds Scope In: 9:10:44 AM Scope Out: 9:23:31 AM Endoscopy Department at [facility] - [address] [place] [phone] IMPRESSION: - Diverticulosis in the entire examined colon. - The distal rectum and anal verge are normal on retroflexion view. - No specimens collected. Recommendation: - Discharge patient to home. - Repeat colonoscopy in 5 years for surveillance. Danielle Lozada MD GI~PROCEDURE ORDERABLES Fin al Result from Last 3 Months or Most Recently Relevant to Health Maintenance Insurance [employer] MED[employer]ARE Care Teams Senior It Business Analyst Relationship Specialty Start Date End Date Sugey Ramos MD [address] [place] [address] [place] [address] PCP - General Internal Medicine 04/19/24
[2024-11-11 10:27] LABS: MANUAL DIFF FLAG NO
[2024-11-11 10:39] LABS: Basophils Percent Auto 0.5 % (0-2); Eosinophils Absolute Auto 0.1 X10*3/uL (0.0-0.4); Eosinophils Percent Auto 2.1 % (0-4); Hemoglobin 13.5 g/dl (14.0-18.0); Imm Gran Abs Auto 0.02 X10*3/uL (0.00-0.03); Imm Gran Pct Auto 0.3 % (0.0-0.4); Lymphocytes Absolute Auto 2.1 X10*3/uL (1.2-4.9); Lymphocytes Percent Auto 34.4 % (20-40); Mean Corpuscular HGB Conc 34.6 g/dl (31.0-36.0); Mean Corpuscular Hemoglobin 31.4 pg (27.0-33.0); Mean Corpuscular Volume 90.7 fL (80.0-98.0); Mean Platelet Volume 9.1 fL (9.4-12.4); Monocytes Absolute Auto 0.7 X10*3/uL (0.1-1.2); Monocytes Percent Auto 10.6 % (2-11); Neutrophils Absolute Auto 3.2 x10*3/uL (2.0-8.3); Neutrophils Percent Auto 52.1 % (45-73); Platelet Count 319 X10*3/uL (160-400); Red Cell Distribution Width 13.1 % (11.0-16.0); White Blood Count 6.1 X10*3/uL (4.8-10.8)
[2024-11-11 10:55] LABS: Alanine Aminotransferase 25 U/L (0-40); Albumin Level 4.4 g/dL (3.5-5.0); Alkaline Phosphatase 90 U/L (39-117); Anion Gap 12 (12-20); Aspartate Amino Transferase 44 U/L (5-37); Bilirubin Total 0.6 mg/dL (0.0-1.0); Blood Urea Nitrogen 12 mg/dL (9-16); Carbon Dioxide 26 mmol/L (22-29); Chloride 103 mmol/L (96-108); Cholesterol 164 mg/dL (<200); Estimated Glomerular Filt Rate > 60; Glucose Random 133 mg/dL (60-115); HDL Cholesterol 52 mg/dL (>40); LDL Cholesterol Calculated 98 mg/dL (<100); Potassium 3.9 mmol/L (3.3-5.1); Sodium 137 mmol/L (135-145); Total Protein 7.4 g/dL (6.5-8.0); Triglycerides 72 mg/dL (<150)
[2024-11-11 11:10] LABS: Prostate Specific Antigen Scr 0.63 ng/mL (<0.05-4.0)
[2024-11-11 11:23] LABS: Thyroid Stimulating Hormone 2.76 uIU/mL (0.32-4.0)
== END 2024-11-11 08:25 | disposition home or self-care (01) ==
LOC: HO.HMGCLDS 08:24
PROVIDERS: PCP Internal Medicine; Visit Provider Internal Medicine
DX: E83.110 Hereditary hemochromatosis (principal); F32.5 Major depressive disorder, single episode, in full remission; I11.0 Hypertensive heart disease with heart failure; M25.572 Pain in left ankle and joints of left foot; N40.0 Benign prostatic hyperplasia without lower urinary tract symptoms; Z72.0 Tobacco use; Z12.5 Encounter for screening for malignant neoplasm of prostate
CPT/HCPCS: 36415; 80053; 80061; 84153; 84443; 85025

== ENCOUNTER 2024-12-06 09:09 | Outpatient (REF) | payer MEDICARE, SELFPAY ==
--- OUTSIDE RECORDS SUMMARY | 2024-12-06 09:39 | XMS_ITS | Clinical Summary ---
Author Organization [facility] Address [address] [place] [address] Phone Care Team Providers Care Plug Machine Operator Name Role Phone Sugey Ramos MD Primary Care Provider [phone] Allergies No known active allergies Medications budesonide-glyc [...] patient will go to the ED at [facility]. I asked him to come to [facility], but suggest that he lives close by to [place]. No additional problems on file Surgical History Surgery Date Site/Laterality Comments LAMINECTOMY CERVICAL SPINE SURGERY 05/18/2011 - 05/17/2012 CYST REMOVED Medical History Medical History Date Comments COPD (chronic obstructive pulmonary disease) (CM S/HCC V24, CMS/HCC V28) Depression Hyperlipidemia Cerebral atrophy ([facility]/HCC V24) Hypertension Colon polyp Hemochromatosis Family [...] 10/02/2018 10/02/2017 Cholesterol Screening (Lipid Panel) 04/20/2022 HIV Screening 04/20/2022 Hepatitis C Screening 04/20/2022 Medicare Annual Wellness Visit 04/20/2022 Social Influencers of Health Screening 04/20/2022 RSV Immunization Adult Patients (1 - Risk 60-74 years 1-dose series) 2022 COVID-19 Vaccine (3 - 2023-2 5 season) 2024 10/02/2020, 09/04/2020 Depression Screening 05/18/2024 Influenza Vaccine (#1) 2025 , 03/20/2015, 02/22/2008 DTaP,Tdap,and Td Vaccines (2 [...] for surveillance. Narrative 04/19/2024 9:26 AM EST [facility] GI Patient Name: Tony Archibald [...] verified by the physician, the nurse, the service planner and the auto body repair technician in the pre-procedure area in the [...] history of colonic polyps CPT copyright 2020 [employer]. All rights reserved. The codes documented in this report are preliminary and upon assistant unit forester review may be revised to meet current compliance requirements. Danielle Lozada MD 04/19/2024 9:26:32 AM This report has been signed electronically.Danielle Lozada MD Number of Addenda: 0 Note Initiated On: 04/19/2024 9:05 AM Scope Withdrawal Time: 0 hours 8 minutes 13 seconds Scope In: 9:10:44 AM Scope Out: 9:23:31 AM Endoscopy Department at [facility] - [address] [place] [phone] Procedure Note Danielle Lozada MD - 04/19/2024 [facility] GI Patient Name: Tony Archibald [...] the physician, the nurse, theanesthetist and the auto body repair technician in the pre-procedure area in the [...] history of colonic polyps CPT copyright 2020 [employer]. All rights reserved. The codes documented in this report are preliminary and upon assistant unit forester reviewmay be revised to meet current compliance requirements. Danielle Lozada MD 04/19/2024 9:26:32 AM This report has been signed electronically.Danielle Lozada MD Number of Addenda: 0 Note Initiated On: 04/19/2024 9:05 AM Scope Withdrawal Time: 0 hours 8 minutes 13 seconds Scope In: 9:10:44 AM Scope Out: 9:23:31 AM Endoscopy Department at [facility] - [address] [place] [phone] IMPRESSION: - Diverticulosis in the entire examined colon. - The distal rectum and anal verge are normal on retroflexion view. - No specimens collected. Recommendation: - Discharge patient to home. - Repeat colonoscopy in 5 years for surveillance. Danielle Lozada MD GI~PROCEDURE ORDERABLES Fin al Result from Last 3 Months or Most Recently Relevant to Health Maintenance Insurance [employer] MED[employer]ARE Care Teams Plug Machine Operator Relationship Specialty Start Date End Date Sugey Ramos MD [address] [place] [address] [place] [address] PCP - General Internal Medicine 04/19/24
--- OUTSIDE RECORDS SUMMARY | 2024-12-06 09:39 | XMS_ITS | Encounter Summary ---
Author Organization [facility] Address [address] [place] [id number] Phone Care Team Providers Care Custodian Blood Bank Name Role Phone Luis Antonio Ibanez MD Primary Care Provider [phone] Encounter Details Date Type Department Care Team (Late st Contact Info) Description 10/08/2020 Procedure Pass [facility] Endoscopy Admitting Dept Virtual Department [address] [place] [address] Social History Tobacco Use Types Packs/Day Years Used Date Smoking Tobacco: Every Day Cigarettes Smokeless Tobacco: Former Alcohol Use Standard Drinks/Week Comments Not Asked 14 (1 standard drink = 0.6 oz pu re alcohol) Sex and Gender Information Value Date Recorded Sex Assigned at Not on file Legal Sex Male 10:19 AM EDT Gender Identity Not on file Sexual Orientation Not on file documented as of this encounter Plan of Treatment Not on file documented as of this encounter Visit Diagnoses Not on filedocumented in this encounter Care Teams Custodian Blood Bank Relationship Specialty Start Date End Date Luis Antonio Ibanez MD [address] [place] [address] [address] [place] [address] PCP - General Internal Medicine 09/08/18 documented as of this encounter Additional Source Comments The information contained in this document represents components of the legal health record. It is not the complete legal health record.[facility]
[2024-12-06 11:06] LABS: Iron 165 mcg/dL (45-160); Percent Iron Saturation 75 % (15-50); Total Iron Binding Capacity 221 mcg/dL (228-428); Unsaturated Iron Binding 56 ug/dL
[2024-12-06 11:24] LABS: Ferritin 85 ng/mL (20-250)
== END 2024-12-06 09:10 | disposition home or self-care (01) ==
LOC: HO.BBR 09:09
PROVIDERS: PCP Internal Medicine; Visit Provider Internal Medicine Medical Oncology
DX: E83.118 Other hemochromatosis (principal)
CPT/HCPCS: 36415; 82728; 83540

== ENCOUNTER 2025-01-04 08:46 | Outpatient (REF) | payer MEDICARE, SELFPAY ==
--- OUTSIDE RECORDS SUMMARY | 2025-01-04 09:28 | XMS_ITS | Encounter Summary ---
Author Organization [facility] Address [address] [place] [address] Phone Care Team Providers Care Electrician Shop Name Role Phone Luis Antonio Ibanez MD Primary Care Provider [phone] Encounter Details Date Type Department Care Team (Late st Contact Info) Description 10/08/2020 Procedure Pass [facility] Endoscopy Admitting Dept Virtual Department [address] [place] [address] Social History Tobacco Use Types Packs/Day Years [...] on filedocumented in this encounter Care Teams Electrician Shop Relationship Specialty Start Date End Date Luis Antonio Ibanez MD [address] [place] [address] [address] [place] [address] PCP - General Internal Medicine 09/08/18 documented as of this encounter Additional Source Comments The information contained in this document represents components of the legal health record. It is not the complete legal health record.[facility]
--- OUTSIDE RECORDS SUMMARY | 2025-01-04 09:28 | XMS_ITS | Clinical Summary ---
Author Organization [facility] Address [address] [place] [address] Phone Care Team Providers Care Microphone Boom Operator Name Role Phone Sugey Ramos MD Primary Care Provider [phone] Allergies No known active allergies Medications budesonide-glyc [...] patient will go to the ED at [facility]. I asked him to come to [facility], but suggest that he lives close by to [place]. No additional problems on file Encounters Date Type Department Care Team Description 12/23/2024 9:03 PM EDT - 12/24/2024 1:27 AM EDT Emergency [facility] Emergency [address] [place] [address] Mell Barney MD Hematoma of left thigh, initial encounter (Primary Dx); Pain; Contusion of left lower leg, initial encounter; Fall, accidental, initial encounter Discharge Disposition: Home or Self Care from Last 3 Months Surgical History Surgery Date Site/Laterality Comments LAMINECTOMY CERVICAL SPINE SURGERY 05/18/2011 - 05/17/2012 CYST REMOVED Medical History Medical History Date Comments COPD (chronic obstructive pulmonary disease) (CM S/HCC V24, CMS/HCC V28) Depression Hyperlipidemia Cerebral atrophy ([facility]/HCC V24) Hypertension Colon polyp Hemochromatosis Family [...] Sign Reading Time Taken Comments Blood Pressure 130/66 12/23/2024 8:12 PM EDT Pulse 92 12/23/2024 8:12 PM EDT Temperature 36.9 C (98.5 F) 12/23/2024 8:12 PM EDT Respiratory Rate 18 12/23/2024 8:12 PM EDT Oxygen Saturation 100% 12/23/2024 8:12 PM EDT Inhaled Oxygen Concentration - - Weight 65.8 kg (145 lb) 12/23/2024 8:12 PM EDT Height 172.7 cm (5' 8 ) 12/23/2024 8:12 PM EDT Body Mass Index 22.05 12/23/2024 8:12 PM EDT Plan of Treatment Health Maintenance Due Date [...] Procedure Name Priority Date/Time Associated Diagnosis Comments VAS US DUPLEX LOWER EXT VENOUS LEFT STAT 12/23/2024 8:37 PM EDT Pain XR HIPS 2 VIEWS WO OR W PELVIS BILAT STAT 12/23/2024 8:26 PM EDT COLONOSCOPY Routine 04/19/2024 9:22 AM EST Hx of colonic polyps from Last 3 Months or Most Recently Relevant to Health Maintenance Results * Vascular US Duplex Lower Extremity Venous Left (12/23/2024 8:37 PM EDT) Anatomical Region Laterality Modality Vascular, Abdomen Ultrasound 12/24/2024 12:3 9 AM EDT Impressions 12/24/2024 12:40 AM EDT NO LEFT LOWER EXTREMITY DEEP VENOUS THROMBOSIS. -------- FINAL REPORT -------- Dictated By: Lali Payne Dictated Date: 12/24/2024 00:39 ET Assigned Physician: Lali Payne Reviewed and Electronically Signed By: Lali Payne Signed Date: 12/24/2024 00:40 ET Workstation ID: [id number] Transcribed By: Self Edit Transcribed Date: 12/24/2024 00:39 ET Narrative 12/24/2024 12:40 AM EDT Ultrasound venous duplex left lower extremity INDICATION: edema pain TECHNIQUE: 2-D and color Doppler imaging of the left lower extremity venous vasculature with compression and augmentation maneuvers. COMPARISON: No priors available. FINDINGS: There is normal flow, compression, and augmentation from the common femoral through the popliteal vein. No focal fluid collection. Procedure Note Lali Payne MD - 12/24/2024 Ultrasound venous duplex left lower extremity INDICATION: edema pain TECHNIQUE: 2-D and color Doppler imaging of the left lower extremityvenous vasculature with compression and augmentation maneuvers. COMPARISON: No priors available. FINDINGS: There is normal flow, compression, and augmentation from the commonfemoral through the popliteal vein. No focal fluid collection. IMPRESSION: NO LEFT LOWER EXTREMITY DEEP VENOUS THROMBOSIS. -------- FINAL REPORT -------- Dictated By: Lali Payne Dictated Date: 12/24/2024 00:39 ET Assigned Physician: Lali Payne Reviewed and Electronically Signed By: Lali Payne Signed Date: 12/24/2024 00:40 ET Workstation ID: [id number] Transcribed By: Self Edit Transcribed Date: 12/24/2024 00:39 ET us Katie Cespedes MD CV VASCULAR PROCEDURES Final Res ult * XR Hips 2 Views wo or w Pelvis bilat (12/23/2024 8:26 PM EDT) Anatomical Region Laterality Modality Lower Extremities, Hip Bilateral Radiograp hic Imaging 12/24/2024 8:36 AM EDT Impressions 12/24/2024 8:37 AM EDT Degenerative changes. No acute findings. -------- FINAL REPORT -------- Dictated By: Agnel Thayer Dictated Date: 12/24/2024 08:36 ET Assigned Physician: Angel Thayer Reviewed and Electronically Signed By: Angel Thayer Signed Date: 12/24/2024 08:37 ET Workstation ID: [id number] Transcribed By: Self Edit Transcribed Date: 12/24/2024 08:36 ET Narrative 12/24/2024 8:37 AM EDT PROCEDURE: Radiographs of the pelvis and both hips. HISTORY: pain. COMPARISON: None. FINDINGS: 5 views of the hips and pelvis. Bones appear slightly demineralized. There are mild degenerative changes of the left hip and moderate degenerative changes of the right hip. Minimal degenerative irregularity of the pubic symphysis and SI joints. Partially visible prominent degenerative changes of the lumbar spine. No fracture. No suspicious bony lesion. Vasectomy clips. Procedure Note Angel Thayer MD - 12/24/2024 PROCEDURE: Radiographs of the pelvis and both hips. HISTORY: pain. COMPARISON: None. FINDINGS: 5 views of the hips and pelvis. Bones appear slightly demineralized.There are mild degenerative changes of the left hip and moderatedegenerative changes of the right hip. Minimal degenerative irregularityof the pubic symphysis and SI joints. Partially visible prominentdegenerative changes of the lumbar spine. No fracture. No suspiciousbony lesion. Vasectomy clips. IMPRESSION: Degenerative changes. No acute findings. -------- FINAL REPORT -------- Dictated By: Angel Thayer Dictated Date: 12/24/2024 08:36 ET Assigned Physician: Angel Thayer Reviewed and Electronically Signed By: Angel Thayer Signed Date: 12/24/2024 08:37 ET Workstation ID: [id number] Transcribed By: Self Edit Transcribed Date: 12/24/2024 08:36 ET Katie Cespedes MD IMG XR PROCEDURES Final Result * COLONOSCOPY Anesthesia - MAC; [facility] ENDOSCOPY (04/19/2024 9:22 AM EST) Anatomical Region Laterality Modality Endoscopy 04/19/2024 9:05 AM EST Impressions 04/19/2024 9:26 AM EST - Diverticulosis in the entire examined colon. - The distal rectum and anal verge are normal on retroflexion view. - No specimens collected. Recommendation: - Discharge patient to home. - Repeat colonoscopy in 5 years for surveillance. Narrative 04/19/2024 9:26 AM EST [facility] GI Patient Name: Carmella Archibald Procedure Date: 04/19/2024 9:05 AM Date [...] verified by the physician, the nurse, the swamper and the orthodontic technician in the pre-procedure area in the [...] history of colonic polyps CPT copyright 2020 [employer]. All rights reserved. The codes documented in this report are preliminary and upon braille coder review may be revised to meet current compliance requirements. Danielle Lozada MD 04/19/2024 9:26:32 AM This report has been signed electronically.Danielle Lozada MD Number of Addenda: 0 Note Initiated On: 04/19/2024 9:05 AM Scope Withdrawal Time: 0 hours 8 minutes 13 seconds Scope In: 9:10:44 AM Scope Out: 9:23:31 AM Endoscopy Department at [facility] - [address] [place] [id number] Procedure Note Danielle Lozada MD - 04/19/2024 [facility] GI Patient Name: Carmella Archibald Procedure Date: 04/19/2024 9:05 AM Date [...] the physician, the nurse, theanesthetist and the orthodontic technician in the pre-procedure area in the [...] history of colonic polyps CPT copyright 2020 [employer]. All rights reserved. The codes documented in this report are preliminary and upon braille coder reviewmay be revised to meet current compliance requirements. Danielle Lozada MD 04/19/2024 9:26:32 AM This report has been signed electronically.Danielle Lozada MD Number of Addenda: 0 Note Initiated On: 04/19/2024 9:05 AM Scope Withdrawal Time: 0 hours 8 minutes 13 seconds Scope In: 9:10:44 AM Scope Out: 9:23:31 AM Endoscopy Department at [facility] - [address] [place] [id number] IMPRESSION: - Diverticulosis in the entire examined colon. - The distal rectum and anal verge are normal on retroflexion view. - No specimens collected. Recommendation: - Discharge patient to home. - Repeat colonoscopy in 5 years for surveillance. Danielle Lozada MD GI~PROCEDURE ORDERABLES Fin al Result from Last 3 Months or Most Recently Relevant to Health Maintenance Insurance [employer] MEDICARE Care Teams Microphone Boom Operator Relationship Specialty Start Date End Date Sugey Ramos MD [address] [place] [address] [place] [address] PCP - General Internal Medicine 04/19/24
[2025-01-04 10:51] LABS: Iron 86 mcg/dL (45-160); Percent Iron Saturation 37 % (15-50); Total Iron Binding Capacity 234 mcg/dL (228-428); Unsaturated Iron Binding 148 ug/dL
[2025-01-04 11:05] LABS: Ferritin 168 ng/mL (20-250)
== END 2025-01-04 08:47 | disposition home or self-care (01) ==
LOC: HO.BBR 08:46
PROVIDERS: PCP Internal Medicine; Visit Provider Internal Medicine Medical Oncology
DX: E83.110 Hereditary hemochromatosis (principal)
CPT/HCPCS: 36415; 82728; 83540

== ENCOUNTER 2025-02-28 10:44 | Emergency (ER) | payer MEDICARE, SELFPAY ==
--- NOTE | ~2025-02-28 | XR_ITS ---
EXAMINATION: XR ELBOW, RIGHT CLINICAL INFORMATION: c/f osteo, deep wound COMPARISON: None available. TECHNIQUE: AP, lateral, and oblique views of the right elbow. FINDINGS: No fracture, dislocation, or suspicious bone lesion. No focal osteopenia or permeative type bone changes to suggest radiographic changes of osteomyelitis. Moderate degenerative arthrosis of the radiocapitellar joint, and ulnar trochlear joint present. There is a small olecranon spur present. There is no joint effusion present. There is an ulceration of the soft tissues overlying the medial olecranon process. Soft tissues otherwise normal. XR/XR elbow RT min 3V IMPRESSION: 1. No acute bony findings. No radiographic evidence of osteomyelitis. 2. 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 3. Soft tissue ulceration overlying the medial olecranon process. 4. No evidence of joint effusion. Electronically signed by: Jesse Medina MD 02/28/2025 11:32 AM EDT
[2025-02-28 10:52] VITALS: BP 154/93; PULSE 98; RESP 18; TEMP 36.6; O2SAT 97; BMI 22.0
--- NOTE | 2025-02-28 10:52 | ED.GENADULT ---
HPI - General Adult General Chief complaint: Extremity Injury, Upper Stated complaint: Wound R elbow Related Data Home Medications ?Medication ?Instructions ?Recorded ?Confirmed buspirone 10 mg tablet 20 mg PO BID 11/24/23 05/30/24 escitalopram oxalate 10 mg tablet 10 mg PO DAILY 11/24/23 05/30/24 metoprolol succinate 50 mg 50 mg PO DAILY 11/24/23 05/30/24 tablet,extended release 24 hr trazodone 50 mg tablet 50 mg PO BEDTIME 04/23/24 05/30/24 Allergies Allergy/AdvReac Type Severity Reaction Status Date / Time No Known Allergies Allergy Verified 02/28/25 11:00 [facility] Past Medical History Medical History Acute appendicitis History of ETOH abuse Hereditary hemochromatosis Nicotine dependence, cigarettes, uncomplicated Surgical History History of laparoscopic appendectomy (04/23/24) History of lumbar surgery History of vasectomy History of cervical spinal surgery History of left knee surgery Family History Family History Father Colon cancer Social History Social History Household Members: Spouse Housing: House Do you presently have visiting nurse or other home services: No Alcohol intake: current Alcohol intake frequency: 3 or more drinks per day Alcohol type: hard liquor Patient Tobacco Use Status: Current everyday Tobacco user Tobacco use type: Cigarette Cigarette Packs Per Day: 0.5 Cigarettes Per Day: 10.0 Years Smoked: 40 Second Hand Smoke Exposure: No Substance Use Type: Marijuana service: No Current occupational status: disabled Physical Exam ED Vital Signs: BMI result Body Mass Index 22.0 Course Course Course Narrative: This is a rapid medical exam performed by Adwoa Tan NP: Additional HPI, ROS, PE not included below will be deferred to primary provider. Patient is a 64y/o M with history of hereditary hemochromatosis, history of alcohol abuse presenting to the ED with complaint of right elbow wound for the past year. States on Thursday the callous came off, had purulent drainage. Denies fevers/chills/body aches. Erythema to right elbow with central opening, full ROM of elbow. Also reports that he has been very depressed lately, denies SI. Mentioned to PCP who told him to stop drinking alcohol. States he has been going to AA meetings, and decreased his alcohol use. Plan: labs including cxs, xray Patient left the emergency department before myself or any of the other clinicians could review or explain physical exam findings, test results, need or lack there of for additional testing, treatment options, or a treatment plan. Medical Decision Making Lab Data 02/28/25 11:31 02/28/25 11:31 Labs: Lab Results 02/28/25 Range/Units 11:31 WBC 8.6 (4.8-10.8) X10*3/uL RBC 5.17 D (4.60-5.80) X10*6/uL Hgb 15.6 (14.0-18.0) g/dl Hct 46.7 (42.0-52.0) % MCV 90.3 (80.0-98.0) fL MCH 30.2 (27.0-33.0) pg MCHC 33.4 (31.0-36.0) g/dl RDW 12.6 (11.0-16.0) % Plt Count 314 (160-400) X10*3/uL MPV 8.7 L (9.4-12.4) fL Immature Gran % (Auto) 0.2 (0.0-0.4) % Neut % (Auto) 80.0 H (45-73) % Lymph % (Auto) 11.0 L (20-40) % [place] % (Auto) 8.2 (2-11) % Eos % (Auto) 0.2 (0-4) % Baso % (Auto) 0.4 (0-2) % Lymph # (Auto) 0.9 L (1.2-4.9) X10*3/uL [place] # (Auto) 0.7 (0.1-1.2) X10*3/uL Eos # (Auto) 0.0 (0.0-0.4) X10*3/uL Baso # (Auto) 0.0 (0.0-0.2) X10*3/uL Abs Immat Gran (auto) 0.02 (0.00-0.03) X10*3/uL Absolute Neuts (auto) 6.8 (2.0-8.3) x10*3/uL Absolute Nucleated RBC 0.000 (0.0-0.012) X10*3/uL Nucleated RBC % (auto) 0.0 (0.0-0.2) /100WBC ESR 5 (0-15) MM/HR Sodium 140 (135-145) mmol/L Potassium 4.5 (3.3-5.1) mmol/L Chloride 107 (96-108) mmol/L Carbon Dioxide 24 (22-29) mmol/L Anion Gap 14 (12-20) BUN 11 (9-16) mg/dL Creatinine 0.93 (0.5-1.4) mg/dL Estim Creat Clear Calc 76.6 Estimated GFR > 60 Random Glucose 114 (60-115) mg/dL Calcium 9.2 (8.4-10.2) mg/dL Total Bilirubin 0.4 (0.0-1.0) mg/dL AST 36 (5-37) U/L ALT 17 (0-40) U/L Alkaline Phosphatase 104 (39-117) U/L C-Reactive Protein 0.20 (< or = 0.50) mg/dL Total Protein 8.1 H (6.5-8.0) g/dL Albumin 4.6 (3.5-5.0) g/dL Discharge Plan Discharge Clinical Impression: Open wound of right elbow Patient Disposition: Left W/O Completing Treatment Prescriptions: No Action metoprolol succinate 50 mg tablet extended release 24 hr 50 mg PO DAILY buspirone 10 mg tablet 20 mg PO BID escitalopram oxalate 10 mg tablet 10 mg PO DAILY trazodone 50 mg tablet 50 mg PO BEDTIME Discharge Date/Time: 02/28/25 18:58
[2025-02-28 11:39] LABS: MANUAL DIFF FLAG NO
[2025-02-28 11:40] LABS: Hematocrit 46.7 % (42.0-52.0); Hemoglobin 15.6 g/dl (14.0-18.0); Imm Gran Abs Auto 0.02 X10*3/uL (0.00-0.03); Imm Gran Pct Auto 0.2 % (0.0-0.4); Lymphocytes Absolute Auto 0.9 X10*3/uL (1.2-4.9); Mean Corpuscular HGB Conc 33.4 g/dl (31.0-36.0); Mean Corpuscular Hemoglobin 30.2 pg (27.0-33.0); Mean Corpuscular Volume 90.3 fL (80.0-98.0); NRBC Abs Auto 0.000 X10*3/uL (0.0-0.012); NRBC Pct Auto 0.0 /100WBC (0.0-0.2); Platelet Count 314 X10*3/uL (160-400); Red Blood Count 5.17 X10*6/uL (4.60-5.80); White Blood Count 8.6 X10*3/uL (4.8-10.8)
[2025-02-28 11:59] LABS: Alanine Aminotransferase 17 U/L (0-40); Albumin Level 4.6 g/dL (3.5-5.0); Alkaline Phosphatase 104 U/L (39-117); Anion Gap 14 (12-20); Aspartate Amino Transferase 36 U/L (5-37); Blood Urea Nitrogen 11 mg/dL (9-16); Calcium 9.2 mg/dL (8.4-10.2); Carbon Dioxide 24 mmol/L (22-29); Chloride 107 mmol/L (96-108); Creatinine Clr Calc Pharmacy 76.6; Estimated Glomerular Filt Rate > 60; Potassium 4.5 mmol/L (3.3-5.1); Sodium 140 mmol/L (135-145); Total Protein 8.1 g/dL (6.5-8.0)
--- OUTSIDE RECORDS SUMMARY | 2025-02-28 19:02 | XMS_ITS | Clinical Summary ---
Author Organization [facility] Address [address] [place] [address] Phone Care Team Providers Care Chief School Finance Officer Name Role Phone Laine Oquendo MD Primary Care Provider [phone] Allergies No known active allergies Medications gabapentin (NEURONTIN) 400 MG capsule Take 400 mg by mouth 2 (two) times a week. Active citalopram (CELEXA) 20 MG tablet Take 20 mg by mouth daily. Active ibuprofen (ADVIL,MOTRIN) 200 MG tablet Take 400 mg by mouth every 6 (six) hours as needed for pain (specific location in comments). Active albuterol 90 mcg/actuation inhaler Inhale 2 puffs into the lungs every 6 (six) hours as needed for wheezing. Active Social History Tobacco Use Types Packs/Day Years Used Date Smoking Tobacco: Every Day Cigarettes Smokeless Tobacco: Former Alcohol Use Standard Drinks/Week Comments Not Asked 14 (1 standard drink = 0.6 oz pu re alcohol) Education Answer Date Recorded Are you interested in more education? Not on antonio e 09/12/2022 Are you concerned about learning? Not on file 09/12/2022 No 09/12/2022 No 09/12/2022 Digital Access Answer Date Recorded No 10/11/2022 No 10/11/2022 No 10/11/2022 Reliable internet access at home? Not on file 10/11/2022 Device with a working camera? Not on file Sex and Gender Information Value Date Recorded Sex Assigned at Not on file Legal Sex Male 10:19 AM EDT Gender Identity Not on file Sexual Orientation Not on file Last Filed Vital Signs Vital Sign Reading Time Taken Comments Blood Pressure 138/90 10/08/2020 8:52 AM EDT Pulse 75 10/08/2020 7:37 AM EDT Temperature 35.9 C (96.6 F) 10/08/2020 8:37 AM EDT Respiratory Rate 16 10/08/2020 7:37 AM EDT Oxygen Saturation 97% 10/08/2020 8:52 AM EDT Inhaled Oxygen Concentration - - Weight 65.8 kg (145 lb) 10/05/2020 9:47 AM EDT Height 174 cm (5' 8.5 ) 10/05/2020 9:47 AM EDT Body Mass Index 21.73 10/05/2020 9:47 AM EDT Plan of Treatment Health Maintenance Due Date Last Done Comments Adult Td,Tdap Booster 1960 LIPID PANEL 1960 DEPRESSION SCREENING 1974 SMOKING Hx and SMOKELESS TOBACCO SCREENING 1975 HEPATITIS C SCREENING 1980 HIV ONE-TIME SCREENING (18-6 5 YEARS) 1980 PNEUMOCOCCAL VACCINES (50+ years) (1 of 2 - PCV) 1981 COLOGUARD 2007 FIT TEST 2007 FOBT 2007 SIGMOIDOSCOPY 2007 VIRTUAL COLONOSCOPY 2007 ZOSTER VACCINES (1 of 2) 2012 INFLUENZA VACCINE (#1) 2024 COVID-19 VACCINE (3 - 2024-2 6 season) 2025 10/02/2020, 09/04/2020 COLONOSCOPY 10/08/2030 10/08/2020 COLORECTAL CANCER SCREENING 10/08/2030 RSV VACCINE (1 - 1-dose 75+ series) 2037 HEPATITIS A VACCINES Aged Out No long er eligible based on patient's age to complete this topic HIB VACCINES Aged Out No longer eligi ble based on patient's age to complete this topic MENINGOCOCCAL VACCINES (ACWY) Aged Out No longer eligible based on patient's age to complete this topic MENINGOCOCCAL VACCINES (B) Aged Out N o longer eligible based on patient's age to complete this topic Medical Devices Not on file Procedures Procedure Name Priority Date/Time Associated Diagnosis Comments ENDOSCOPY, COLON 10/08/2020 8:10 AM EDT from Last 3 Months or Most Recently Relevant to Health Maintenance Results * ENDOSCOPY, COLON (10/08/2020 8:10 AM EDT) Narrative Transcriptions Medhat Weaver MD - 10/08/2020 8:10 AM EDT Patient Name: Tony Archibald Attending MD:: MEDHAT WEAVER MD Procedure Date: 10/08/2020 8:10 AM Date of : 1960 Age: 60 Admit Type: Outpatient Gender: Male Room: [facility] Referring MD: LAINE OQUENDO MD Exam Type: Colonoscopy Indications: Surveillance: Personal history of adenomatous polypson last colonoscopy > 5 years ago, Last colonoscopy:2008, Family history of colon cancer in a first-degree relative Medications: Monitored Anesthesia Care Procedure: Informed consent was obtained from the patient after discussion of the indications, limitations, alternatives, benefits, and risks of the procedure. Risks specifically discussed include but are not limited to medication reactions, missed lesions, bleeding, perforation, or the need for emergentsurgery. Throughout the procedure, the patient's bloodpressure, pulse, end-tidal CO2, and oxygen saturations were monitored continuously. The Olympus pediatric variable colonoscopePCF-[id number] #2 was introduced through the anus and advanced tothe cecum, identified by the appendiceal orifice,ileocecal valve and palpation. The colonoscopy was technically difficult and complex due to multiple diverticula in the colon. The patient tolerated the procedurefairly well. The quality of the bowel preparation wasadequate. Complications: No immediate complications. Estimated blood loss: Minimal. Findings: The perianal and digital rectal examinations were normal. Pertinent negatives include no palpablerectal lesions. Multiple small and large-mouthed diverticula werefound in the sigmoid colon, descending colon and ascending colon. There was narrowing of the colon inassociation with the diverticular opening. A 7 mm polyp was found in the hepatic flexure. The polyp was semi-sessile. The polyp was removed with a cold snare. Resection and retrieval were complete. Estimated blood loss was minimal. The exam was otherwise without abnormality on direct and retroflexion views. Impression: - SEVERE diverticulosis in the sigmoid colon, in the descending colon and in the ascending colon. Therewas narrowing of the colon in association with the diverticular opening. - One 7 mm polyp at the hepatic flexure, removedwith a cold snare. Resected and retrieved. - The examination was otherwise normal on direct and retroflexion views. Recommendation: - I will send results of your biopsy to you and your referring physician or provider. If you do notreceive notification within 3 weeks, please call ouroffice. - Repeat colonoscopy in 5 years for surveillancebased on pathology results. - Return to GI office at appointment to bescheduled. MEDHAT WEAVER MD 10/08/2020 8:39:05 AM This report has been signed electronically. Number of Addenda: 0 Note Initiated On: 10/08/2020 8:10 AM Procedure Code(s): --- Professional --- 37230, Colonoscopy, flexible; with removal of tumor(s), polyp(s), or other lesion(s) by snare technique --- Technical --- 34399, Colonoscopy, flexible; with removal of tumor(s), polyp(s), or other lesion(s) by snare technique Diagnosis Code(s): --- Professional --- Z86.010, Personal history of colonic polyps D12.3, Benign neoplasm of transverse colon (hepatic flexure or splenic flexure) Z80.0, Family history of malignant neoplasm of digestive organs K57.30, Diverticulosis of large intestine without perforation or abscess without bleeding --- Technical --- Z86.010, Personal history of colonic polyps D12.3, Benign neoplasm of transverse colon (hepatic flexure or splenic flexure) Z80.0, Family history of malignant neoplasm of digestive organs K57.30, Diverticulosis of large intestine without perforation or abscess without bleeding CPT copyright 2018 [employer]. All rights reserved. The codes documented in this report are preliminary and upon printing supervisor reviewmay be revised to meet current compliance requirements. Procedure Date: 10/08/2020 8:10:07 AM [address] [place] [address] Laine Oquendo MD GI PROCEDURE ORDERABLES Final Result from Last 3 Months or Most Recently Relevant to Health Maintenance Insurance MEDICARE PART A & B Member Subscriber Plan / Payer (Ef fective 2019-Present) Name:Tony Archibald Member ID:[id number] Relation to Subscriber:Self Name:Tony Archibald Subscriber ID:[id number] Payer ID:[id number] Group ID:Not on file Type:Medicare Address: [address] [id number] [address] MED[address]ARE PART A & [place] [address] [place], [place] [address]O MEDICARE PART A & B Member Subscriber Plan / Payer (Ef fective 2019-Present) Name:Tony Archibald Member ID:[id number] Relation to Subscriber:Self Name:Tony Archibald Subscriber ID:[id number] Payer ID:[id number] Group ID:Not on file Type:Medicare Address: [employer] [address] [place] [id number] [place], [place] [address] MEDICARE PART A & B [facility] HMO MEDICARE PART A & B O MEDICARE PART A & B Member Subscriber Plan / Payer (Ef fective 2019-Present) Name:Tony Archibald Member ID:[id number] Relation to Subscriber:Self Name:Tony Archibald Subscriber ID:[id number] Payer ID:[id number] Group ID:Not on file Type:Medicare Address: [employer] [address] [place] [id number] [facility] B MEDICARE PART A [place] [address] MEDICARE PART A & B [facility] HMO Care Teams Chief School Finance Officer Relationship Specialty Start Date End Date Laine Oquendo MD [address] [place], [place] [address] [address] PCP - General Internal Medicine 09/08/18 Additional Source Comments The information contained in this document represents components of the legal health record. It is not the complete legal health record.[facility]
--- OUTSIDE RECORDS SUMMARY | 2025-02-28 19:02 | XMS_ITS | Encounter Summary ---
Author Organization [facility] Address [address] [place] [address] Phone Care Team Providers Care Otr Van Cdl Truck Driver Name Role Phone Luis Antonio Ibanez MD Primary Care Provider [phone] Encounter Details Date Type Department Care Team (Late st Contact Info) Description 10/08/2020 Procedure Pass [facility] Endoscopy Admitting Dept Virtual Department [address] [place] [address] Social History Tobacco Use Types Packs/Day Years [...] on filedocumented in this encounter Care Teams Otr Van Cdl Truck Driver Relationship Specialty Start Date End Date Luis Antonio Ibaenz MD [address] [place] [address] PCP - General Internal Medicine 09/08/18 documented as of this encounter Additional Source Comments The information contained in this document represents components of the legal health record. It is not the complete legal health record.[facility]
== END 2025-02-28 18:58 | disposition left against medical advice (07) ==
PROVIDERS: Registered Nurse Emergency; Emergency Provider Emergency Medicine; PCP Internal Medicine
DX: S51.001A Unspecified open wound of right elbow, initial encounter (principal); X58.XXXA Exposure to other specified factors, initial encounter; Y93.9 Activity, unspecified; Y92.9 Unspecified place or not applicable; Z53.29 Procedure and treatment not carried out because of patient's decision for other reasons; E83.110 Hereditary hemochromatosis; F17.200 Nicotine dependence, unspecified, uncomplicated; F10.90 Alcohol use, unspecified, uncomplicated
CPT/HCPCS: 36415; 73080; 80053; 85025; 85652; 86140; 87040; 99281; 99283

== ENCOUNTER → 2025-02-28 10:55 | Outpatient (BNV) | payer MEDICARE, SELFPAY | PROVIDERS: PCP Internal Medicine; Visit Provider Radiology Diagnostic Radiology | DX: M19.021 Primary osteoarthritis, right elbow (principal); L89.019 Pressure ulcer of right elbow, unspecified stage | CPT/HCPCS: 73080 ==

== ENCOUNTER 2025-03-03 15:20 | Outpatient (REF) | payer MEDICARE, SELFPAY ==
--- NOTE | ~2025-03-03 | CT_ITS ---
EXAMINATION: CT LUNG SCREENING HISTORY: F17.210 - Nicotine dependence, cigarettes, uncomplicated TECHNIQUE: Low dose axial images were obtained from the sternal notch to upper abdomen without IV contrast per standard departmental protocol. Sagittal and coronal reformatted images were also obtained and reviewed. One or more of the following techniques was used for dose reduction: Automated exposure control, adjustment of the mA and/or kV according to patient size, use of iterative reconstruction technique. DLP: 48 mGy-cm COMPARISON: Previous CT October 2022 FINDINGS: Lung nodules: 2 mm peripheral subpleural probably calcified right lower lobe nodule axial image 134 series 5 is stable. 3 mm left lower lobe nodule axial image 152 series 5 is stable. No new or enlarging pulmonary nodules. Central airways are clear. Emphysema: none Coronary Calcification: mild Aortic Arch Calcification: none Potentially Significant Incidentals : none Additional Chest Findings: There is no pleural or pericardial effusion. Small partially calcified mediastinal and left hilar lymph nodes unchanged. Small right axillary lymph nodes. No enlarged lymph nodes. Visualized upper abdomen: Thickening of the left adrenal gland unchanged. Surgical hardware in the lower cervical and upper thoracic spine. Old right rib fractures. Degenerative changes of the thoracic spine. CT/CT lung screening IMPRESSION: Stable small calcified and noncalcified pulmonary nodules. LUNG-RADS ASSESSMENT: Lung-RADS 2: Benign MANAGEMENT: Continue annual screening with LDCT in 12 months Category S: N/A Electronically signed by: Nerissa Garza MD 03/03/2025 04:13 PM EDT
--- OUTSIDE RECORDS SUMMARY | 2025-03-03 17:53 | XMS_ITS | Encounter Summary ---
Author Organization [facility] Address [address] [place] [address] Phone Care Team Providers Care Wireless Communications Engineer Name Role Phone Luis Antonio Ibanez MD Primary Care Provider [phone] Encounter Details Date Type Department Care Team (Late st Contact Info) Description 10/08/2020 Procedure Pass [facility] Endoscopy Admitting Dept Virtual Department [address] [place] [address] Social History Tobacco Use Types Packs/Day Years [...] on filedocumented in this encounter Care Teams Wireless Communications Engineer Relationship Specialty Start Date End Date Luis Antonio Ibanez MD [address] [place] [address] 1 [place] [address] PCP - General Internal Medicine 09/08/18 documented as of this encounter Additional Source Comments The information contained in this document represents components of the legal health record. It is not the complete legal health record.[facility]
--- OUTSIDE RECORDS SUMMARY | 2025-03-03 17:53 | XMS_ITS | Clinical Summary ---
Author Organization [facility] Address [address] [place] [address] Phone Care Team Providers Care Director Non Profit Name Role Phone Laine Oquendo MD Primary Care Provider [phone] Allergies No known active allergies Medications gabapentin [...] 58 Admit Type: Outpatient Gender: Male Room: [facility] Referring MD: LAINE OQUENDO MD Exam Type: [...] 8:10 AM Procedure Code(s): --- Professional --- 67199, Colonoscopy, flexible; with removal of tumor(s), polyp(s), or other lesion(s) by snare technique --- Technical --- 31983, Colonoscopy, flexible; with removal of tumor(s), polyp(s), [...] or abscess without bleeding CPT copyright 2018 [employer]. All rights reserved. The codes documented in this report are preliminary and upon income tax adjuster reviewmay be revised to meet current compliance requirements. Procedure Date: 10/08/2020 8:10:07 AM [address] [place] [address] Laine Oquendo MD GI PROCEDURE ORDERABLES Final Result from Last 3 Months or Most Recently Relevant to Health Maintenance Insurance MEDICARE PART A & B Member Subscriber Plan / Payer (Ef fective 2019-Present) Name:Tony Archibald Member ID:[id number] Relation to Subscriber:Self Name:Tony Archibald Subscriber ID:[id number] Payer ID:[id number] Group ID:Not on file Type:Medicare Address: [address] [phone] [address] MED[address] PART A & [place] [address] [place], [place] [address]O MEDICARE PART A & B Member Subscriber Plan / Payer (Ef fective 2019-Present) Name:Tony Archibald Member ID:[id number] Relation to Subscriber:Self Name:Tony Archibald Subscriber ID:[id number] Payer ID:[id number] Group ID:Not on file Type:Medicare Address: [employer] [address] [place] [phone] [place] [address]O MEDICARE PART A & B [facility] HMO MEDICARE PART A & B O MEDICARE PART A & B Member Subscriber Plan / Payer (Ef fective 2019-Present) Name:Tony Archibald Member ID:[id number] Relation to Subscriber:Self Name:Tony Archibald Subscriber ID:[id number] Payer ID:[id number] Group ID:Not on file Type:Medicare Address: [employer] [address] [place] [phone] [facility] B MEDICARE PART A [place] [address] MEDICARE PART A & B [facility] HMO Care Teams Director Non Profit Relationship Specialty Start Date End Date Laine Oquendo MD [address] [place], [place] [address] [address] PCP - General Internal Medicine 09/08/18 Additional Source Comments The information contained in this document represents components of the legal health record. It is not the complete legal health record.[facility]
== END 2025-03-03 15:21 | disposition home or self-care (01) ==
LOC: HO.CT 15:20
PROVIDERS: PCP Internal Medicine; Visit Provider Physician Assistant Medical
DX: Z12.2 Encounter for screening for malignant neoplasm of respiratory organs (principal); F17.210 Nicotine dependence, cigarettes, uncomplicated
CPT/HCPCS: 71271

== ENCOUNTER → 2025-03-03 15:24 | Outpatient (BNV) | payer MEDICARE, SELFPAY | PROVIDERS: PCP Internal Medicine; Visit Provider Radiology Diagnostic Radiology | DX: F17.210 Nicotine dependence, cigarettes, uncomplicated (principal) | CPT/HCPCS: 71271 ==

== ENCOUNTER 2025-03-20 08:40 | Outpatient (REF) | payer MEDICARE, SELFPAY ==
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
--- OUTSIDE RECORDS SUMMARY | 2025-03-20 09:09 | XMS_ITS | Encounter Summary ---
Author Organization [facility] Address [address] [place] [address] Phone Care Team Providers Care Crossbow Maker Name Role Phone Luis Antonio Ibanez MD Primary Care Provider [phone] Encounter Details Date Type Department Care Team (Late st Contact Info) Description 10/08/2020 Procedure Pass [facility] Endoscopy Admitting Dept Virtual Department [address] [place] [address] Social History Tobacco Use Types Packs/Day Years [...] on filedocumented in this encounter Care Teams Crossbow Maker Relationship Specialty Start Date End Date Luis Antonio Ibanez MD [address] [place] [address] [address] [place] [address] PCP - General Internal Medicine 09/08/18 documented as of this encounter Additional Source Comments The information contained in this document represents components of the legal health record. It is not the complete legal health record.[facility]
--- OUTSIDE RECORDS SUMMARY | 2025-03-20 09:09 | XMS_ITS | Clinical Summary ---
Author Organization [facility] Address [address] [place] [address] Phone Care Team Providers Care Diplomatic Interpreter/Translator Name Role Phone Laine Oquendo MD Primary Care Provider [phone] Allergies No known active allergies Medications gabapentin [...] 2024-2 6 season) 2025 10/02/2020, 09/04/2020 COLONOSCOPY 10/08/2025 10/08/2020 COLORECTAL CANCER SCREENING 10/08/2025 RSV VACCINE (1 - 1-dose 75+ series) [...] 60 Admit Type: Outpatient Gender: Male Room: [facility] Referring MD: LAINE OQUENDO MD Exam Type: [...] 8:10 AM Procedure Code(s): --- Professional --- 60863, Colonoscopy, flexible; with removal of tumor(s), polyp(s), or other lesion(s) by snare technique --- Technical --- 25330, Colonoscopy, flexible; with removal of tumor(s), polyp(s), [...] or abscess without bleeding CPT copyright 2018 [employer]. All rights reserved. The codes documented in this report are preliminary and upon rivet sticker reviewmay be revised to meet current compliance requirements. Procedure Date: 10/08/2020 8:10:07 AM [address] [place] [address] Laine Oquendo MD GI PROCEDURE ORDERABLES Final Result from Last 3 Months or Most Recently Relevant to Health Maintenance Insurance MEDICARE PART A & B Member Subscriber Plan / Payer (Ef fective 2019-Present) Name:Tony Archibald Member ID:[id number] Relation to Subscriber:Self Name:Tony Archibald Subscriber ID:[id number] Payer ID:[id number] Group ID:Not on file Type:Medicare Address: [address] [phone] [address] MEDICARE PART A & B [address] [place], [place] [address]O MEDICARE PART A & B Member Subscriber Plan / Payer (Ef fective 2019-Present) Name:Tony Archibald Member ID:[id number] Relation to Subscriber:Self Name:Tony Archibald Subscriber ID:[id number] Payer ID:[id number] Group ID:Not on file Type:Medicare Address: [employer] [address] [place] [phone] [place], [place] [address] MEDICARE PART A & B [facility] HMO MEDICARE PART A & B O MEDICARE PART A & B Member Subscriber Plan / Payer (Ef fective 2019-Present) Name:Tony Archibald Member ID:[id number] Relation to Subscriber:Self Name:Tony Archibald Subscriber ID:[id number] Payer ID:[id number] Group ID:Not on file Type:Medicare Address: [employer] [address] [place] [phone] [facility] B MEDICARE [place] [address] MEDICARE PART A & B [facility] HMO Care Teams Diplomatic Interpreter/Translator Relationship Specialty Start Date End Date Laine Oquendo MD [address] [place], [place] [address] [address] PCP - General Internal Medicine 09/08/18 Additional Source Comments The information contained in this document represents components of the legal health record. It is not the complete legal health record.[facility]
[2025-03-20 10:02] LABS: Iron 254 mcg/dL (45-160); Percent Iron Saturation 91 % (15-50); Total Iron Binding Capacity 279 mcg/dL (228-428); Unsaturated Iron Binding < 25 ug/dL
[2025-03-20 10:15] LABS: Ferritin 77 ng/mL (20-250)
== END 2025-03-20 08:41 | disposition home or self-care (01) ==
LOC: HO.BBR 08:40
PROVIDERS: PCP Internal Medicine; Visit Provider Internal Medicine Medical Oncology
DX: E83.110 Hereditary hemochromatosis (principal)
CPT/HCPCS: 36415; 82728; 83540

== ENCOUNTER 2025-04-21 08:55 | Outpatient (REF) | payer MEDICARE, SELFPAY ==
[2025-04-21 10:21] LABS: Iron 171 mcg/dL (45-160); Percent Iron Saturation 71 % (15-50); Total Iron Binding Capacity 242 mcg/dL (228-428); Unsaturated Iron Binding 71 ug/dL
[2025-04-21 10:36] LABS: Ferritin 87 ng/mL (20-250)
== END 2025-04-21 08:56 | disposition home or self-care (01) ==
LOC: HO.BBR 08:55
PROVIDERS: PCP Internal Medicine; Visit Provider Internal Medicine Medical Oncology
DX: E83.110 Hereditary hemochromatosis (principal)
CPT/HCPCS: 36415; 82728; 83540

== ENCOUNTER 2025-04-27 09:34 | Emergency (ER) | payer MEDICARE, SELFPAY ==
--- NOTE | ~2025-04-27 | XR_ITS ---
EXAMINATION: XR ANKLE 3 OR MORE VIEWS LEFT, XR FOOT 3 OR MORE VIEWS LEFT HISTORY: pain, injury COMPARISON: There are no prior studies available for comparison. FINDINGS: Six views of the left foot and ankle are submitted. Osseous mineralization is normal. There is a transverse fracture of the 2nd metatarsal base. There is severe osteoarthritis of the 1st MTP joint with joint space narrowing and osteophyte formation. The remaining joint spaces are preserved. The soft tissues are unremarkable. XR/XR foot LT min 3V IMPRESSION: 1. Nondisplaced transverse fracture of the 2nd metatarsal base. 2. 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 Electronically signed by: Alex Olsen MD 04/27/2025 10:43 AM SWATHI
--- NOTE | ~2025-04-27 | XR_ITS ---
EXAMINATION: XR ANKLE 3 OR MORE VIEWS LEFT, XR FOOT 3 OR MORE VIEWS LEFT HISTORY: pain, injury COMPARISON: There are no prior studies available for comparison. FINDINGS: Six views of the left foot and ankle are submitted. Osseous mineralization is normal. There is a transverse fracture of the 2nd metatarsal base. There is severe osteoarthritis of the 1st MTP joint with joint space narrowing and osteophyte formation. The remaining joint spaces are preserved. The soft tissues are unremarkable. XR/XR ankle LT min 3V IMPRESSION: 1. Nondisplaced transverse fracture of the 2nd metatarsal base. 2. 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 Electronically signed by: Alex Olsen MD 04/27/2025 10:43 AM SWATHI
--- NOTE | ~2025-04-27 | XR_ITS ---
EXAMINATION: XR ELBOW, RIGHT CLINICAL INFORMATION: concern for osteo COMPARISON: 02/28/2025. TECHNIQUE: AP, lateral, and oblique views of the right elbow. FINDINGS: Ulceration in the soft tissues abutting the olecranon process present with soft tissue swelling. No subcutaneous gas seen otherwise. No definite underlying erosive or permeative bony change, or periostitis present. No focal osteopenia. Chondrocalcinosis and moderate to advanced arthrosis noted in the radiocapitellar and ulnar trochlear joints. There is an osseous suspect loose body superior to the radiocapitellar joint on the lateral projection. Small olecranon spur present. No definite joint effusion is evident. Mild enthesopathic spurring of the epicondyles is present. XR/XR elbow RT min 3V IMPRESSION: 1. Soft tissue ulceration with swelling in the soft tissues abutting the olecranon process. No definite underlying radiographic changes of osteomyelitis. No gross soft tissue gas otherwise. 2. 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 Suspected loose body on the lateral projection as detailed. 3. No definite joint effusion. Electronically signed by: Jesse Medina MD 04/27/2025 10:44 AM EST
[2025-04-27 09:47] VITALS: BP 137/90; PULSE 89; RESP 16; TEMP 36.9; O2SAT 95; BMI 20.7
--- NOTE | 2025-04-27 09:51 | ED.GENADULT ---
HPI - General Adult General Chief complaint: General Medical Stated complaint: FALL T-1,LLE SWELLING,UNABLE TO BARE WT PER EMS Time Seen by Provider: 04/27/25 09:51 Source: patient and EMS Mode of arrival: EMS Limitations: no limitations History of Present Illness ED Provider: Thao Gold PA-C HPI narrative: Patient is a 64 year old assigned male at with a history of alcohol use presenting to the emergency department today with left foot pain and requesting alcohol detox. Patient states that he tripped in the kitchen last night and hyperextended his left foot. Patient states that it has hurt ever since and he has not been able to bear weight on it. Patient states that he would also like to get help with alcohol detox. Patient states that he does not have any history of alcohol withdrawal seizures. Patient states that he has a chronic right elbow wound that he follows up at [facility] for. Patient denies any other complaints at this time. Related Data Home Medications ?Medication ?Instructions ?Recorded ?Confirmed buspirone 10 mg tablet 20 mg PO BID 11/24/23 05/30/24 escitalopram oxalate 10 mg tablet 10 mg PO DAILY 11/24/23 05/30/24 metoprolol succinate 50 mg 50 mg PO DAILY 11/24/23 05/30/24 tablet,extended release 24 hr trazodone 50 mg tablet 50 mg PO BEDTIME 04/23/24 05/30/24 Allergies Allergy/AdvReac Type Severity Reaction Status Date / Time No Known Allergies Allergy Verified 04/27/25 10:14 Review of Systems Constitutional: Constitutional: Reports as per HPI Eyes: Eyes: Reports as per HPI ENT: Reports as per HPI Cardiovascular: Cardiovascular: Reports as per HPI Respiratory: Respiratory: Reports as per HPI Gastrointestinal: Gastrointestinal: Reports as per HPI Genitourinary: Genitourinary: Reports as per HPI Musculoskeletal: Musculoskeletal: Reports as per HPI Integumentary/Breasts: Skin/Breast: Reports as per HPI Neurologic: Reports as per HPI Psychiatric: Psychiatric: Reports as per HPI Endocrine: Endocrine: Reports as per HPI Hematologic/Lymphatic: Hematologic/Lymphatic: Reports as per HPI Allergic/Immunologic: Allergic/Immunologic: Reports as per HPI [facility] Past Medical History Attestation statement: The following information was validated with the patient. Source: old records reviewed and nursing notes reviewed Medical History Acute appendicitis History of ETOH abuse Hereditary hemochromatosis Nicotine dependence, cigarettes, uncomplicated Surgical History History of laparoscopic appendectomy (04/23/24) History of lumbar surgery History of vasectomy History of cervical spinal surgery History of left knee surgery Family History Family History Father Colon cancer Social History Social History Household Members: Spouse Housing: House Do you presently have visiting nurse or other home services: No Alcohol intake: current Alcohol intake frequency: 3 or more drinks per day Alcohol type: hard liquor Patient Tobacco Use Status: Current everyday Tobacco user Tobacco use type: Cigarette Cigarette Packs Per Day: 0.5 Cigarettes Per Day: 10.0 Years Smoked: 40 Second Hand Smoke Exposure: No Substance Use Type: Marijuana Advance Directives: No Advance Directives Information Provided: Yes service: No Current occupational status: disabled Physical Exam ED Vital Signs: Vital Signs - 24 hr 04/27/25 09:47 04/27/25 11:19 04/27/25 11:59 Temperature 98.4 F 98.4 F Pulse Rate 89 73 86 Respiratory Rate 16 16 16 Blood Pressure 137/90 H 156/81 H 138/93 H Pulse Oximetry 95 95 98 Oxygen Delivery Method Room Air Room Air Room Air 04/27/25 12:52 04/27/25 16:09 04/27/25 16:29 Temperature 99.4 F 98.4 F Pulse Rate 76 89 87 Respiratory Rate 16 14 16 Blood Pressure 120/86 133/82 137/88 Pulse Oximetry 95 94 96 Oxygen Delivery Method Room Air Room Air Room Air BMI result Body Mass Index 20.7 Const General: cooperative, no acute distress, alert and awake Nutritional Appearance: well nourished Orientation/consciousness: patient oriented x3 HENMT Head: Yes normal to inspection and Yes atraumatic Ears: hearing grossly normal bilaterally and external ears normal General nose exam: Normal external nose present, no nasal discharge noted and no epistaxis Face and sinus: Yes normal facial exam, No abrasion and No laceration Mouth: Normal oral and palatal mucosa present, no drooling and no muffled voice Eyes General: appearance normal, both eyes and all related structures Periorbital: periorbital findings normal Eyelids: Yes eyelids normal Conjunctivae: conjunctivae normal Pupils: Equal, round and reactive pupils present EOM: EOMs intact bilaterally Neck Neck: Yes normal visual inspection and Yes full ROM Resp Effort & Inspection: normal respiratory effort and able to speak in complete sentences Neuro General: patient oriented x3, moves all extremities and CN's II-XI intact bilaterally Cranial nerves: Yes Equal, round and reactive pupils present Cognition (Neuro): normal cognition Extrem Other: Pain with left foot ROM and palpation of the dorsal aspect General: Yes capillary refill normal Psych Appearance: grossly normal Mental Status: mental status grossly normal Affect: normal affect Attitude: cooperative Thought process: Normal thought process present Thought content: Normal thought content present Insight: Good insight present (Psych) Medications Administered Discontinued Medications Generic Name Dose Route Start Last Admin Trade Name Freq PRN Reason Stop Dose Admin Buspirone HCl 15 mg 04/27/25 12:21 04/27/25 12:48 Buspirone Hcl 5 Mg Tablet PO 04/27/25 12:22 15 mg ONCE ONE Administration Ketorolac Tromethamine 15 mg 04/27/25 10:11 04/27/25 11:15 Ketorolac Tromethamine 15 Mg/Ml Vial IM 04/27/25 10:12 15 mg ONCE ONE Administration Lorazepam 1 mg 04/27/25 12:21 04/27/25 12:48 Lorazepam 1 Mg Tablet PO 04/27/25 12:22 1 mg ONCE ONE Administration Procedures Orthopedic Splinting/Casting L 2nd metatarsal fracture: Side: left Lower Extremity Injury Location: foot Lower Extremity Immobilizer: boot orthosis Medical Decision Making Medical Decision Making MDM Narrative: Patient is a 64 year old assigned male at with a history of alcohol use presenting to the emergency department today with left foot pain and requesting alcohol detox. Patient's physical exam was as noted in the physical exam portion of this note Patient's blood work was unremarkable. Patient's right elbow x-ray showed no acute bony process. Patient's left foot x-ray showed a 2nd metatarsal fracture. Patient's left ankle x-ray showed no acute process. I spoke with the orthopedic team who recommended walking boot placement and following up with the podiatry team. Patient met with the CARE team who attempted to get the patient placed into detox however, due to the patient's insurance ([employer]), they were unable to secure placement at this time. Patient's left foot was placed in a short walking boot, without incident. Patient's PMS was intact prior to and after boot placement. Patient requested crutches and was given a pair. Patient was able to demonstrate appropriate crutch use while in the department. Patient was in observation from 1030am on 04/27/2025 till 1630. Observation ended at 1630 on 04/27/2025 and it was determined the patient does not have any reason for medication admission. I explained my physical exam findings as well as all test results to the patient. I answered all questions asked by the patient. I stressed the importance of the patient taking his medication as directed (either prescribed or as the over the counter packaging recommends). I stressed the importance of the patient following up with his primary care provider and the podiatry team. I stressed the importance of the patient returning to the emergency department immediately if his symptoms were to worsen or if he were to develop any dizziness, shortness of breath, difficulty breathing, chest pain, blurry vision, loss of vision, nausea, vomiting, abdominal pain, fever, chills, back pain, or any other complaints. Patient verbalized agreement and understanding with this treatment plan and discharge. Differential Diagnosis Differential Diagnoses: The differential diagnosis associated with the presentation includes Metatarsal fracture Foot fracture Ankle fracture Foot sprain Foot strain Alcohol withdrawal Admission/Observation Consideration of admission/observation: Escalation of care including admission/observation considered Patient would have been admitted to the hospital had his work up had any findings where hospital admission was appropriate and his clinical presentation warranted hospital admission. Consult Healthcare Provider Management of the patient was discussed with: [employer] (spoke with the orthopedic team as noted in the MDM Rationale portion of this note. ) and Behavioral Health Provider (spoke with the CARE team as noted in the MDM Rationale portion of this note. ) Lab Data [facility] Lab Attestation statement: I reviewed the patient's lab results. My interpretation of these results are in the MDM Rationale portion of this note. 04/27/25 11:03 04/27/25 11:03 Labs: Lab Results 04/27/25 Range/Units 11:03 WBC 9.0 (4.8-10.8) X10*3/uL RBC 4.53 L (4.60-5.80) X10*6/uL Hgb 13.4 L (14.0-18.0) g/dl Hct 39.9 L (42.0-52.0) % MCV 88.1 (80.0-98.0) fL MCH 29.6 (27.0-33.0) pg MCHC 33.6 (31.0-36.0) g/dl RDW 14.4 (11.0-16.0) % Plt Count 309 (160-400) X10*3/uL MPV 8.4 L (9.4-12.4) fL Immature Gran % (Auto) 0.2 (0.0-0.4) % Neut % (Auto) 76.2 H (45-73) % Lymph % (Auto) 13.5 L (20-40) % Nolan % (Auto) 9.6 (2-11) % Eos % (Auto) 0.2 (0-4) % Baso % (Auto) 0.3 (0-2) % Lymph # (Auto) 1.2 (1.2-4.9) X10*3/uL Nolan # (Auto) 0.9 (0.1-1.2) X10*3/uL Eos # (Auto) 0.0 (0.0-0.4) X10*3/uL Baso # (Auto) 0.0 (0.0-0.2) X10*3/uL Abs Immat Gran (auto) 0.02 (0.00-0.03) X10*3/uL Absolute Neuts (auto) 6.9 (2.0-8.3) x10*3/uL Absolute Nucleated RBC 0.000 (0.0-0.012) X10*3/uL Nucleated RBC % (auto) 0.0 (0.0-0.2) /100WBC ESR 16 (1-20) MM/HR Sodium 138 (135-145) mmol/L Potassium 4.4 (3.3-5.1) mmol/L Chloride 104 (96-108) mmol/L Carbon Dioxide 26 (22-29) mmol/L Anion Gap 12 (12-20) BUN 11 (9-16) mg/dL Creatinine 0.65 (0.5-1.4) mg/dL Estim Creat Clear Calc 103.0 Estimated GFR > 60 Random Glucose 108 (60-115) mg/dL Calcium 8.8 (8.4-10.2) mg/dL Total Bilirubin 1.2 H (0.0-1.0) mg/dL AST 39 H (5-37) U/L ALT 18 (0-40) U/L Alkaline Phosphatase 74 (39-117) U/L C-Reactive Protein 0.75 H (< or = 0.50) mg/dL Total Protein 7.4 (6.5-8.0) g/dL Albumin 4.2 (3.5-5.0) g/dL Ethyl Alcohol < 10 mg/dL Independent Interpretation I performed an independent interpretation of an: Plain X-Ray Interpretation: My interpretation is in agreement with the radiologist's impression of these imaging studies as written below. Reason for Exam: concern for osteo EXAMINATION: XR ELBOW, RIGHT CLINICAL INFORMATION: concern for osteo COMPARISON: 02/28/2025. TECHNIQUE: AP, lateral, and oblique views of the right elbow. FINDINGS: Ulceration in the soft tissues abutting the olecranon process present with soft tissue swelling. No subcutaneous gas seen otherwise. No definite underlying erosive or permeative bony change, or periostitis present. No focal osteopenia. Chondrocalcinosis and moderate to advanced arthrosis noted in the radiocapitellar and ulnar trochlear joints. There is an osseous suspect loose body superior to the radiocapitellar joint on the lateral projection. Small olecranon spur present. No definite joint effusion is evident. Mild enthesopathic spurring of the epicondyles is present. XR/XR elbow RT min 3V IMPRESSION: 1. Soft tissue ulceration with swelling in the soft tissues abutting the olecranon process. No definite underlying radiographic changes of osteomyelitis. No gross soft tissue gas otherwise. 2. 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 Suspected loose body on the lateral projection as detailed. 3. No definite joint effusion. Electronically signed by: Jesse Medina MD 04/27/2025 10:44 AM EST Dictated By: Jesse Medina MD Signed By: Electronically signed by Jesse Medina MD 04/27/25 1044 Reason for Exam: pain, injury EXAMINATION: XR ANKLE 3 OR MORE VIEWS LEFT, XR FOOT 3 OR MORE VIEWS LEFT HISTORY: pain, injury COMPARISON: There are no prior studies available for comparison. FINDINGS: Six views of the left foot and ankle are submitted. Osseous mineralization is normal. There is a transverse fracture of the 2nd metatarsal base. There is severe osteoarthritis of the 1st MTP joint with joint space narrowing and osteophyte formation. The remaining joint spaces are preserved. The soft tissues are unremarkable. XR/XR ankle LT min 3V IMPRESSION: 1. Nondisplaced transverse fracture of the 2nd metatarsal base. 2. 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 Electronically signed by: Alex Olsen MD 04/27/2025 10:43 AM EST Dictated By: Alex Olsen MD Signed By: Electronically signed by Alex Olsen MD 04/27/25 1043 Radiology Impression Discussion of test interpretation with radiology: I have reviewed the radiologist's reading. Independent Historian Clinical information obtained from an independent historian. History obtained from or confirmed by: EMS (EMS provided additional history and confirmed the history provided by the patient.) Discharge Plan Discharge Clinical Impression: Alcohol abuse Foot fracture Qualifiers: Encounter type: initial encounter Fracture type: closed Laterality: left Qualified Code(s): S92.902A - Unspecified fracture of left foot, initial encounter for closed fracture Patient Disposition: Home, Self-Care Instructions: Foot Fracture in Adults (ED), Alcohol Use Disorder (ED) Additional Instructions: You were seen in the Emergency Department today in part for treatment of alcohol use disorder.?Several referrals were sent however, we did not hear back from any of them at this time. Continue your recovery journey on an outpatient basis. Please consider calling our outpatient Addiction Treatment office:? [facility] (M-F [id number] [address] [facility] 404 Your x-ray showed evidence of a broken 2nd metatarsal base (base of toe in the foot). You were put in a walking boot for this. Please keep the boot on and bear weight on it as tolerated. Follow up with the podiatry team. IF you are prescribed home medications and/or you are taking over the counter medications at home - it is very important you continue to do so as prescribed / directed unless told otherwise by a healthcare provider. Follow up with your primary care provider. Do your best to stay well hydrated and rest. Return to the emergency department immediately if your symptoms worsen or if you develop any numbness, tingling, dizziness, shortness of breath, difficulty breathing, chest pain, blurry vision, loss of vision, nausea, vomiting, abdominal pain, fever, chills, back pain, or any other complaints. If you do not have a primary care provider - call any of the below numbers to establish and follow up with a primary care provider. [facility] [place] [phone] [place] [address], [address] [facility] [place] [place] [phone] [place] [address], [address] [facility], [address] [facility] [place] [place] [phone] [place] [address], [address] [facility], [address] [facility] [place] [phone] [place] [address] 2 [facility], [address] [facility] [place] [phone] [place] [address], [address] Please see the information below about our Patient Portal. If you are not yet enrolled in the [facility] Patient Portal, you will receive an enrollment email invitation following your visit to any [facility] [place] setting. You may also self-enroll in the Patient Portal by visiting our website: [email or web address] The following information is required to access the Patient Portal: - Your [facility] [place] Number - Your personal home email address (must match what is in your electronic medical record, Registration staff can assist with this) - Name - Date of Capabilities of the Patient Portal: - Message some providers - View upcoming appointments - Access your health summary, medical history, and visit history - View current conditions and allergies - View procedure and lab results - View your medications, including guidelines, side effects, and precautions - Complete pre-appointment questionnaires requested by your provider - Ready summary reports of your office visits and procedures To access the Patient Portal Mobile Seamus, follow these directions: - Search [employer] in the Seamus Store or Google [employer] Store - Download the Seamus - Search for [facility] - Enter your login/password Prescriptions: No Action metoprolol succinate 50 mg tablet extended release 24 hr 50 mg PO DAILY buspirone 10 mg tablet 20 mg PO BID escitalopram oxalate 10 mg tablet 10 mg PO DAILY trazodone 50 mg tablet 50 mg PO BEDTIME Referrals: [facility] [place] [Provider Group, Podiatry] Referral Note: Call to establish and follow up with the podiatry team for your left 2nd metatarsal fx. Sugey Ramos MD [Primary Care Provider, Internal Medicine] Interventions: ED Discharge Assessment Last Done: 04/27/25 16:29 Print Language: Divehi
[2025-04-27 11:08] LABS: MANUAL DIFF FLAG NO
[2025-04-27 11:10] LABS: Hematocrit 39.9 % (42.0-52.0); Hemoglobin 13.4 g/dl (14.0-18.0); Imm Gran Abs Auto 0.02 X10*3/uL (0.00-0.03); Imm Gran Pct Auto 0.2 % (0.0-0.4); Lymphocytes Absolute Auto 1.2 X10*3/uL (1.2-4.9); Mean Corpuscular HGB Conc 33.6 g/dl (31.0-36.0); Mean Corpuscular Hemoglobin 29.6 pg (27.0-33.0); Mean Corpuscular Volume 88.1 fL (80.0-98.0); NRBC Abs Auto 0.000 X10*3/uL (0.0-0.012); NRBC Pct Auto 0.0 /100WBC (0.0-0.2); Platelet Count 309 X10*3/uL (160-400); Red Blood Count 4.53 X10*6/uL (4.60-5.80); White Blood Count 9.0 X10*3/uL (4.8-10.8)
[2025-04-27 11:19] VITALS: BP 156/81; PULSE 73; RESP 16; TEMP 36.9; O2SAT 95
[2025-04-27 11:29] LABS: Alanine Aminotransferase 18 U/L (0-40); Albumin Level 4.2 g/dL (3.5-5.0); Alkaline Phosphatase 74 U/L (39-117); Anion Gap 12 (12-20); Aspartate Amino Transferase 39 U/L (5-37); Blood Urea Nitrogen 11 mg/dL (9-16); Calcium 8.8 mg/dL (8.4-10.2); Carbon Dioxide 26 mmol/L (22-29); Chloride 104 mmol/L (96-108); Creatinine Clr Calc Pharmacy 103.0; Estimated Glomerular Filt Rate > 60; Potassium 4.4 mmol/L (3.3-5.1); Sodium 138 mmol/L (135-145); Total Protein 7.4 g/dL (6.5-8.0)
[2025-04-27 11:59] VITALS: BP 138/93; PULSE 86; RESP 16; O2SAT 98
[2025-04-27 12:52] VITALS: BP 120/86; PULSE 76; RESP 16; O2SAT 95
--- NOTE | 2025-04-27 14:55 | MHC.CARE ---
Patient interested in detox, his information was sent to several facilities. Provider, EDIE Canela updated
[2025-04-27 16:09] VITALS: BP 133/82; PULSE 89; RESP 14; TEMP 37.4; O2SAT 94
[2025-04-27 16:29] VITALS: BP 137/88; PULSE 87; RESP 16; TEMP 36.9; O2SAT 96
== END 2025-04-27 17:08 | disposition home or self-care (01) ==
PROVIDERS: Physician Assistant Medical; Emergency Provider Emergency Medicine; PCP Internal Medicine
DX: S92.902A Unspecified fracture of left foot, initial encounter for closed fracture (principal); F10.10 Alcohol abuse, uncomplicated; Y90.9 Presence of alcohol in blood, level not specified; R60.0 Localized edema; M25.521 Pain in right elbow; M25.572 Pain in left ankle and joints of left foot; Z79.899 Other long term (current) drug therapy; Z51.81 Encounter for therapeutic drug level monitoring; W18.30XA Fall on same level, unspecified, initial encounter; Y93.01 Activity, walking, marching and hiking; Y92.9 Unspecified place or not applicable; Y99.8 Other external cause status
CPT/HCPCS: 36415; 73080; 73610; 73630; 80053; 80307; 85025; 85652; 86140; 96372; 99285; J1885; S9485

== ENCOUNTER → 2025-04-27 10:11 | Outpatient (BNV) | payer MEDICARE, SELFPAY | PROVIDERS: PCP Internal Medicine; Visit Provider Radiology Diagnostic Radiology | DX: S92.324A Nondisplaced fracture of second metatarsal bone, right foot, initial encounter for closed fracture (principal); M19.072 Primary osteoarthritis, left ankle and foot; M19.022 Primary osteoarthritis, left elbow; M79.89 Other specified soft tissue disorders | CPT/HCPCS: 73080; 73610; 73630 ==